=== PATIENT | male | born 1965 | race Caucasian/White ===

== ENCOUNTER 2017-05-28 13:51 | Emergency (ER) | payer BC, OTHER ==
[~2017-05-28] VITALS: Ht 175.3 cm; Wt 89.5 kg
[2017-05-28 13:51] VITALS: TEMP 36.8; O2SAT 96; Ht 175.3 cm; Wt 89.5 kg
[~2017-05-28 13:51] MED LIST: ASPEC81 PO; PLV75 PO; SODIUM CHLORIDE 0.9% 1000ML 1,000 ML IV SCH; THYR15TA PO; VARE1PAK15 PO
--- NOTE | 2017-05-28 14:02 | DIAGNOSTIC IMAGING REPORT ---
HEAD WITHOUT CONTRAST (CT) CLINICAL HISTORY: 51 years-old Male presenting with Stroke. TECHNIQUE: Multidetector CT imaging of the head was performed without the use of intravenous contrast. IV contrast: None. A dose lowering technique was used consistent with the principles of ALARA (as low as reasonably achievable). COMPARISON: 07/29/2015. CT DOSE (mGy.cm): The estimated cumulative dose is 537.48 mGy.cm. FINDINGS: Shop Helper topogram: Unremarkable. Ventricles and sulci normal in size. Incidental note made of a simon cisterna magna. Brain parenchyma normal in appearance with preserved alba-white differentiation. No mass effect or midline shift. No hemorrhage or acute territorial infarct. No extra-axial fluid collection. Paranasal sinuses and mastoid air cells clear. Calvarium intact. IMPRESSION: 1. No acute intracranial abnormality. Electronically signed by: Jac Bearden M.D. 05/28/2017 2:01 PM Dictated Date/Time: 05/28/2017 1:58 PM
--- NOTE | 2017-05-28 14:12 | EMERGENCY ROOM VISIT NOTE ---
History Report prepared by Funmi: Octavio Arias Under the Supervision of: Dr. Car Valdivia D.O. First contact with patient: 13:44 Chief Complaint: STROKE SYMPTOMS Stated Complaint: STROKE SX History of Present Illness The patient is a 51 year old male who presents to the Emergency Room for stoke- like symptoms that the patient estimates began at 1200 when he was getting ready for lunch. The first symptoms he noticed was getting lightheaded, which was then followed by facial numbness, with left arm numbness. EMS state that they were initially called for chest pain and shortness of breath. The patient confirms he was experiencing these symptoms earlier, but is not now. 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 The patient's last time known well was 1200 today, two hours ago. He does have a history of a stroke which he was told was secondary to poor thyroid function. This episode occurred in July 302015 and he notes he was given TPA. The patient has also been told that he may have [place] Palsy. Upon arrival he subjectively feels like his left arm is improved. 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 ) Review of Systems See HPI for pertinent positives & negatives. A total of 10 systems reviewed and were otherwise negative. Past Medical & Surgical Medical Problems: (1) Asthma (2) CVA (cerebral vascular accident) (3) Dyslipidemia (4) H/O pilonidal cyst (5) Vertigo Surgical Problems: (1) H/O cystoscopy (2) H/O lithotripsy Social History Problems: (1) No pertinent past medical history Family History Hypertension FATHER MOTHER SISTER Stroke GRANDFATHER (age 68) Social History Smoking Status: Current Some Day Smoker Alcohol Use: none Drug Use: none Marital Status: Housing Status: lives with family Occupation Status: employed Current/Historical Medications Scheduled Aspirin (Aspirin EC Low Dose), 81 MG PO QAM Propranolol La (Inderal La), 60 MG PO DAILY Thyroid ([place] Thyroid), 3 TAB PO DAILY Allergies Coded Allergies: Levothyroxine (Verified Adverse Reaction, Severe, AGITATION, 05/28/17) Physical Exam Vital Signs Date Time Temp Pulse Resp B/P (MAP) Pulse Ox O2 Delivery O2 Flow Rate FiO2 05/28/17 17:14 63 18 118/64 95 Room Air 05/28/17 15:56 67 20 130/67 98 Room Air 05/28/17 14:55 73 16 136/90 94 Nasal Cannula 05/28/17 14:36 76 21 95 Room Air 05/28/17 14:31 113/75 05/28/17 14:21 79 20 94 Room Air 05/28/17 14:16 119/76 05/28/17 14:06 81 19 97 Room Air 05/28/17 14:04 81 05/28/17 14:01 137/81 05/28/17 13:51 96 Room Air 05/28/17 13:51 36.8 81 19 137/81 97 Room Air Physical Exam GENERAL: Patient is awake, alert, and in no acute distress. Patient is resting comfortably and showing no signs of anxiety EYES: The conjunctivae are clear. The pupils are round and reactive. EARS, NOSE, MOUTH AND THROAT: The nose is without any evidence of any deformity. Mucous membranes are moist tongue is midline NECK: The neck is nontender and supple. RESPIRATORY: Normal respiratory effort is noted there is no evidence of wheezing rhonchi or rales CARDIOVASCULAR: Regular rate and rhythm noted there no murmurs rubs or gallops normal S1 normal S2 GASTROINTESTINAL: The abdomen is soft. Bowel sounds are present in all quadrants. Abdomen is nontender MUSCULOSKELETAL/EXTREMITIES: There is no evidence of gross deformity full range of motion is noted in the hips and shoulders SKIN: There is no obvious evidence of any rash. There are no petechiae, pallor or cyanosis noted. NEUROLOGIC: Patient is awake alert and oriented x3. Left facial droop involving left forehead, minimal involvement of left eye. 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 No drift in the LUE. Strength is symmetric in both lower extremities. Medical Decision & Procedures ER Provider Diagnostic Interpretation: Radiology results as stated below per my review and radiologist interpretation: CHEST ONE VIEW PORTABLE CLINICAL HISTORY: Stroke COMPARISON STUDY: No previous studies for comparison. FINDINGS: Lung volumes are normal. There is no pneumothorax or pleural effusion. There is no consolidation. Cardiac size is normal. Mediastinal contours are normal. There is pulmonary vascular congestion without overt pulmonary edema. A subtle 3 cm density projecting over the right mid-upper lung is likely artifactual. IMPRESSION: 1. Pulmonary vascular congestion without overt pulmonary edema. 2. Apparent 3 cm subtle density projecting over the right mid upper lung which likely reflects overlying soft tissue artifact. Follow-up nonemergent PA and lateral chest radiographs are recommended. Electronically signed by: Jem Wilkins M.D. 05/28/2017 2:17 PM Dictated Date/Time: 05/28/2017 2:14 PM HEAD WITHOUT CONTRAST (CT) CLINICAL HISTORY: 51 years-old Male presenting with Stroke. TECHNIQUE: Multidetector CT imaging of the head was performed without the use of intravenous contrast. IV contrast: None. A dose lowering technique was used consistent with the principles of ALARA (as low as reasonably achievable). COMPARISON: 07/29/2015. CT DOSE (mGy.cm): The estimated cumulative dose is 537.48 mGy.cm. 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 Ventricles and sulci normal in size. Incidental note made of a simon cisterna magna. Brain parenchyma normal in appearance with preserved alba-white differentiation. No mass effect or midline shift. No hemorrhage or acute territorial infarct. No extra-axial fluid collection. Paranasal sinuses and mastoid air cells clear. Calvarium intact. IMPRESSION: 1. No acute intracranial abnormality. Electronically signed by: Jac Bearden M.D. 05/28/2017 2:01 PM Dictated Date/Time: 05/28/2017 1:58 PM CAROTID DOPPLER NECK ART CLINICAL HISTORY: 51 years-old Male with left facial weakness. Acute left-sided facial weakness COMPARISON: Brain MRI 2017 TECHNIQUE: Multiple real time sonographic images of the carotid bifurcations were obtained assessing alba scale, color Doppler and spectral wave form appearance FINDINGS: RIGHT INTERNAL CAROTID: The peak systolic velocity measured 56 cm/sec. The end diastolic velocity measured 18 cm/sec. The ICA to CCA ratio measured 1.0 which correlates with a stenosis of 0-50%. LEFT INTERNAL CAROTID: The peak systolic velocity measured 64 cm/sec. The end diastolic velocity measured 24 cm/sec. The ICA to CCA ratio measured 1.1 which correlates with a stenosis of 0-50%. Minimal atherosclerotic plaquing of the left carotid bulb. There is normal antegrade vertebral flow bilaterally. IMPRESSION: 1. No hemodynamically significant stenosis or significant atherosclerotic plaquing. 2. Normal antegrade vertebral flow bilaterally. The above report was generated using voice recognition software. It may contain grammatical, syntax or spelling errors. Electronically signed by: Dimitri Hamm M.D. 05/28/2017 5:17 PM Dictated Date/Time: 05/28/2017 5:15 PM Laboratory Results 05/28/17 14:07 Red Blood Count 5.33, Mean Corpuscular Volume 89.5, Mean Corpuscular Hemoglobin 31.1, Mean Corpuscular Hemoglobin Concent 34.8, Mean Platelet Volume 10.7, Neutrophils (%) (Auto) 47.2, Lymphocytes (%) (Auto) 41.3, Monocytes (%) (Auto) 7.3, Eosinophils (%) (Auto) 3.4, Basophils (%) (Auto) 0.7, Neutrophils # (Auto) 3.94, Lymphocytes # (Auto) 3.45, Monocytes # (Auto) 0.61, Eosinophils # (Auto) 0.28, Basophils # (Auto) 0.06 05/28/17 14:07 Test 05/28/17 13:44 05/28/17 14:01 05/28/17 14:07 Bedside Prothrombin Time INR 1.1 (0.9-1.1) White Blood Count 8.35 K/uL (4.8-10.8) Red Blood Count 5.33 M/uL (4.7-6.1) Hemoglobin 16.6 g/dL (14.0-18.0) Hematocrit 47.7 % (42-52) Mean Corpuscular Volume 89.5 fL (80-100) Mean Corpuscular Hemoglobin 31.1 pg (25-34) Mean Corpuscular Hemoglobin Concent 34.8 g/dl (32-36) Platelet Count 236 K/uL (130-400) Mean Platelet Volume 10.7 fL (7.4-10.4) Neutrophils (%) (Auto) 47.2 % Lymphocytes (%) (Auto) 41.3 % Monocytes (%) (Auto) 7.3 % Eosinophils (%) (Auto) 3.4 % Basophils (%) (Auto) 0.7 % Neutrophils # (Auto) 3.94 K/uL (1.4-6.5) Lymphocytes # (Auto) 3.45 K/uL (1.2-3.4) Monocytes # (Auto) 0.61 K/uL (0.11-0.59) Eosinophils # (Auto) 0.28 K/uL (0-0.5) Basophils # (Auto) 0.06 K/uL (0-0.2) RDW Standard Deviation 46.1 fL (36.4-46.3) RDW Coefficient of Variation 14.1 % (11.5-14.5) Immature Granulocyte % (Auto) 0.1 % Immature Granulocyte # (Auto) 0.01 K/uL (0.00-0.02) Erythrocyte Sedimentation Rate 22 mm/hr (0-14) Prothrombin Time 10.1 SECONDS (9.0-12.0) Prothromb Time International Ratio 1.0 (0.9-1.1) Activated Partial Thromboplast Time 27.6 SECONDS (21.0-31.0) Partial Thromboplastin Ratio 1.1 Anion Gap 4.0 mmol/L (3-11) Est Creatinine Clear Calc Drug Dose 106.3 ml/min Estimated GFR () 112.7 Estimated GFR (Non- 97.2 BUN/Creatinine Ratio 14.9 (10-20) Calcium Level 8.9 mg/dl (8.5-10.1) Magnesium Level 2.2 mg/dl (1.8-2.4) Total Bilirubin 0.4 mg/dl (0.2-1) Direct Bilirubin 0.1 mg/dl (0-0.2) Aspartate Amino Transf (AST/SGOT) 13 U/L (15-37) Alanine Aminotransferase (ALT/SGPT) 23 U/L (12-78) Alkaline Phosphatase 60 U/L (45-117) Total Creatine Kinase 98 U/L (39-308) Creatine Kinase MB 0.8 ng/ml (0.5-3.6) Creatine Kinase MB Ratio 0.8 (0-3.0) Troponin I < 0.015 ng/ml (0-0.045) C-Reactive Protein 0.59 mg/dl (0-0.29) Total Protein 7.7 gm/dl (6.4-8.2) Albumin 3.5 gm/dl (3.4-5.0) Lyme Disease IgG Antibody NEG (NEG) Lyme Disease IgM Antibody NEG (NEG) Laboratory results per my review. Medications Administered Medications (Trade) Dose Ordered Sig/Gallo Route Start Time Stop Time Status Last Admin Dose Admin Sodium Chloride 1,000 ml @ 50 mls/hr Q20H IV 05/28/17 13:44 06/27/17 13:43 05/28/17 14:26 50 MLS/HR ECG Per My Interpretation Indication: weakness, other (Stroke Sx) Rate (beats per minute): 76 Rhythm: normal sinus Findings: other (No PVCs, NO ST elevation/depression) ED Course 1344: Ordered Sodium Chloride 1000 mL @ 50 mL/hr IV. 1355: The patient was evaluated in room B1. A complete history and physical examination were performed. 1405: I discussed the case with Dr. Aevlino Blakely Neurology. He will evaluate the patient as a stroke alert. 1611: I discussed the case with Dr. April Blakely Neurology. She suggests placing the patient back on Plavix and adding Aspirin. She would also suggest Carotid Doppler Studies while he is here. She will follow up with him next week. 1800: Upon reevaluation, the patient is resting comfortably and feeling to baseline. I discussed the results and treatment plan with him. He verbalized agreement of the treatment plan. The patient was discharged home. Medical Decision Differential diagnosis: Etiologies such as metabolic, infection, hypo/hyperglycemia, electrolyte abnormalities, cardiac sources, intracerebral event, toxicologic, neurologic, as well as others were entertained. Nursing notes reviewed. Additional history is obtained from the prehospital personnel. The patient is a 51-year-old male who presented to the emergency department for a strokelike syndrome. The patient initially had left upper extremity discomfort and this was toned out as a chest pain however the patient does not have any chest pain instead he had left upper extremity weakness and left facial droop. The patient had a previous episode similar to this in the past and he was seen in our facility. At that time he did receive TPA because of his symptoms. The patient had a normal workup at that time including a negative MRI as well as an negative MRA of the brain and neck. I discussed the patient's laboratory and radiographic studies with him. He was made a stroke alert upon arrival and his condition was discussed with the [facility] stroke neurologist. At this time the patient's symptoms have rapidly improved and are essentially resolved. He feels back to his baseline. The stroke neurologist recommended an MRI of the brain which did not show any acute disease. At this time I do not feel this represents a true stroke. I discussed his case with his primary neurologic group at our facility. They recommended an ultrasound of the carotids. The also asked me to start the patient on Plavix which he has been taking in the past but the patient refuses to take Plavix at this time. He was encouraged to continue all medications as prescribed and rest. I also encouraged him to follow-up with the neurology group next week but return to the emergency department immediately if symptoms change worsen or the need arises. Consults Time Called: 1402 Consulting Physician: Dr. Avelino Rahman Returned Call: 1405 I discussed the case with Dr. Avelino Rahman. He will evaluate the patient as a stroke alert. Additional Consults: Time Called: 1606 Consulted Physician: Dr. April Blakely Neurology Returned Call: [phone] Additional Comments: I discussed the case with Dr. April Rahman. She suggests placing the patient back on Plavix and adding Aspirin. She would also suggest Carotid Doppler Studies while he is here. She will follow up with him next week. Impression Primary Impression: TIA (transient ischemic attack) Additional Impression: Atypical migraine Scribe Attestation The scribe's documentation has been prepared under my direction and personally reviewed by me in its entirety. I confirm that the note above accurately reflects all work, treatment, procedures, and medical decision making performed by me. Departure Information Dispostion Home / Self-Care Referrals Phoenix Mchugh M.D. (PCP) Forms HOME CARE DOCUMENTATION FORM, IMPORTANT VISIT INFORMATION Patient Instructions My [facility] Stroke History Time Last Known Well 1200 pm Stroke t-PA Criteria Reviewed Does NOT meet criteria for t-PA Reason t-PA Not Given Treatment not indicated, Refusal of tx by patient Strict Exclusion Criteria Complete resolution of symptoms (NI Problem Qualifiers Primary Impression: TIA (transient ischemic attack) Transient cerebral ischemia type: unspecified Qualified Codes: G45.9 - Transient cerebral ischemic attack, unspecified
[2017-05-28 14:15] LABS: BASO % 0.7 %; BASO ABS # 0.06 K/uL (0-0.2); EOS % 3.4 %; EOS ABS # 0.28 K/uL (0-0.5); HEMATOCRIT 47.7 % (42-52); HEMOGLOBIN 16.6 g/dL (14.0-18.0); IG# 0.01 K/uL (0.00-0.02); LYMPH % 41.3 %; LYMPH ABS # 3.45 K/uL (1.2-3.4); MEAN CELL VOLUME 89.5 fL (80-100); MEAN CORPUSCULAR HEMOGLOBIN 31.1 pg (25-34); MEAN CORPUSCULAR HGB CONC 34.8 g/dl (32-36); MEAN PLATELET VOLUME 10.7 fL (7.4-10.4); MONO % 7.3 %; MONO ABS # 0.61 K/uL (0.11-0.59); NEUT % 47.2 %; NEUT ABS # 3.94 K/uL (1.4-6.5); PLATELET COUNT 236 K/uL (130-400); RED CELL DISTRIBUTION WIDTH CV 14.1 % (11.5-14.5); RED CELL DISTRIBUTION WIDTH SD 46.1 fL (36.4-46.3); WHITE BLOOD COUNT 8.35 K/uL (4.8-10.8)
[2017-05-28] MEDS ORDERED: THY/30 PO (14:19)
[2017-05-28] MEDS ORDERED: PROP60CA5 PO (14:19)
--- NOTE | 2017-05-28 14:19 | DIAGNOSTIC IMAGING REPORT ---
CHEST ONE VIEW PORTABLE CLINICAL HISTORY: Stroke COMPARISON STUDY: No previous studies for comparison. FINDINGS: Lung volumes are normal. There is no pneumothorax or pleural effusion. There is no consolidation. Cardiac size is normal. Mediastinal contours are normal. There is pulmonary vascular congestion without overt pulmonary edema. A subtle 3 cm density projecting over the right mid-upper lung is likely artifactual. IMPRESSION: 1. Pulmonary vascular congestion without overt pulmonary edema. 2. Apparent 3 cm subtle density projecting over the right mid upper lung which likely reflects overlying soft tissue artifact. Follow-up nonemergent PA and lateral chest radiographs are recommended. Electronically signed by: Jem Wilkins M.D. 05/28/2017 2:17 PM Dictated Date/Time: 05/28/2017 2:14 PM
[2017-05-28 14:23] LABS: PTT PATIENT 27.6 SECONDS (21.0-31.0)
[2017-05-28 14:34] LABS: ALBUMIN 3.5 gm/dl (3.4-5.0); ALT/SGPT 23 U/L (12-78); AST/SGOT 13 U/L (15-37); BLOOD UREA NITROGEN 14 mg/dl (7-18); CALCIUM 8.9 mg/dl (8.5-10.1); CARBON DIOXIDE 29 mmol/L (21-32); CREATININE 0.91 mg/dl (0.60-1.40); GLUCOSE 79 mg/dl (70-99); POTASSIUM 3.8 mmol/L (3.5-5.1); SODIUM 139 mmol/L (136-145)
[2017-05-28 14:42] LABS: ALKALINE PHOSPHATASE 60 U/L (45-117); CKMB 0.8 ng/ml (0.5-3.6); TOTAL PROTEIN 7.7 gm/dl (6.4-8.2)
--- NOTE | 2017-05-28 15:28 | DIAGNOSTIC IMAGING REPORT ---
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 TECHNIQUE: 3 views of the orbits were obtained. COMPARISON: 07/31/2015. FINDINGS: No radiopaque intraorbital foreign body. Bony orbits grossly intact. Paranasal sinuses grossly clear. Visualized portion of the calvarium intact. IMPRESSION: No intraorbital metallic foreign body to preclude MRI exam. Electronically signed by: Jac Bearden M.D. 05/28/2017 3:26 PM Dictated Date/Time: 05/28/2017 3:26 PM
--- NOTE | 2017-05-28 15:53 | DIAGNOSTIC IMAGING REPORT ---
BRAIN WITHOUT CONTRAST HISTORY: Mental status change left weakness TECHNIQUE: Multiplanar multisequence MRI of the brain was performed without the use of contrast. COMPARISON STUDY: 07/31/2015 FINDINGS: There are no areas of restricted diffusion to suggest acute infarction. The midline structures are intact. The paranasal sinuses are clear. The mastoid air cells are clear. The ventricles and sulci are within normal limits for age. There is no mass, hematoma, midline shift. The major vascular flow-voids at the skull base are well maintained. IMPRESSION: No acute intracranial abnormality. The above report was generated using voice recognition software. It may contain grammatical, syntax or spelling errors. Electronically signed by: Bin Munguia M.D. 05/28/2017 3:51 PM Dictated Date/Time: 05/28/2017 3:50 PM
--- NOTE | 2017-05-28 17:18 | DIAGNOSTIC IMAGING REPORT ---
CAROTID DOPPLER NECK ART CLINICAL HISTORY: 51 years-old Male with left facial weakness. Acute left-sided facial weakness COMPARISON: Brain MRI 2017 TECHNIQUE: Multiple real time sonographic images of the carotid bifurcations were obtained assessing alba scale, color Doppler and spectral wave form appearance FINDINGS: RIGHT INTERNAL CAROTID: The peak systolic velocity measured 56 cm/sec. The end diastolic velocity measured 18 cm/sec. The ICA to CCA ratio measured 1.0 which correlates with a stenosis of 0-50%. LEFT INTERNAL CAROTID: The peak systolic velocity measured 64 cm/sec. The end diastolic velocity measured 24 cm/sec. The ICA to CCA ratio measured 1.1 which correlates with a stenosis of 0-50%. Minimal atherosclerotic plaquing of the left carotid bulb. There is normal antegrade vertebral flow bilaterally. IMPRESSION: 1. No hemodynamically significant stenosis or significant atherosclerotic plaquing. 2. Normal antegrade vertebral flow bilaterally. The above report was generated using voice recognition software. It may contain grammatical, syntax or spelling errors. Electronically signed by: Dimitri Hamm M.D. 05/28/2017 5:17 PM Dictated Date/Time: 05/28/2017 5:15 PM
[2017-05-28 17:27] VITALS: BP 119/77; PULSE 68; O2SAT 95
== END 2017-05-28 17:25 | disposition home or self-care (01) ==
LOC: C.EDB 13:51
DX: G45.9 Transient cerebral ischemic attack, unspecified (principal); G43.809 Other migraine, not intractable, without status migrainosus; E78.5 Hyperlipidemia, unspecified; J45.909 Unspecified asthma, uncomplicated; Z79.82 Long term (current) use of aspirin; Z79.899 Other long term (current) drug therapy; Z82.49 Family history of ischemic heart disease and other diseases of the circulatory system; Z82.3 Family history of stroke; F17.200 Nicotine dependence, unspecified, uncomplicated

== ENCOUNTER 2017-06-27 10:38 | Emergency (ER) | payer BC ==
[~2017-06-27] VITALS: Ht 172.7 cm; Wt 90.0 kg
[2017-06-27 10:38] VITALS: TEMP 36.8; O2SAT 96; Ht 172.7 cm; Wt 90.0 kg
[~2017-06-27 10:38] MED LIST changes: -PLV75 PO; +PROP60CA5 PO; -SODIUM CHLORIDE 0.9% 1000ML 1,000 ML IV SCH; +THY/30 PO; -THYR15TA PO; -VARE1PAK15 PO
[2017-06-27] MEDS ORDERED: SODIUM CHLORIDE 0.9% 1000ML 1,000 ML IV SCH (10:43)
--- NOTE | 2017-06-27 10:55 | EMERGENCY ROOM VISIT NOTE ---
History Report prepared by Funmi: Seferino Mancuso Under the Supervision of: Dr. Andrzej Bueno M.D. First contact with patient: 10:34 Stated Complaint: STROKE SYMPTOMS History of Present Illness The patient is a 51 year old male who presents to the Emergency Room with complaints of multiple intermittent episodes of left-sided facial cramping and numbness beginning a few weeks ago. The patient states that his symptoms have been occurring for a few weeks, but have recently become more frequent and more severe. He notes that between the episodes, his facial cramping and numbness goes away. He reports that his symptoms begin with facial twitching and then proceed to left-sided facial cramping. The patient states that his symptoms go down to his left shoulder and feel like "someone is ripping his arm off." He notes that his symptoms have been daily for the last week and last anywhere from 10 minutes to an hour. He reports that he had a CT done three weeks ago for similar symptoms. The patient states that his PCP thinks that he may have dean's palsy. He notes that the right side of his face feels as though "someone slapped it." He reports that he currently has a "splitting headache" which is different than his usual symptoms. He denies any fever, CP, and SOB. The patient states that he has no history of diabetes. He notes that he is on medication for his thyroid and for his blood pressure, as well as an aspirin. The patient had a carotid US done a month ago which showed no significant obstruction. An MRI of his brain was negative and he tested negative for lyme disease. Source of History: patient Onset: a few weeks ago Position: head (left-sided face) Quality: numbness, other (cramping) Timing: intermittent, other (multiple episodes) Associated Symptoms: + headache, No fevers, No chest pain, No SOB Note: The patient also complains of left-sided shoulder pain that feels as though "someone is ripping his arm off." He also complains of right-sided facial numbness. Review of Systems See HPI for pertinent positives & negatives. A total of 10 systems reviewed and were otherwise negative. Past Medical & Surgical Medical Problems: (1) Asthma (2) CVA (cerebral vascular accident) (3) Dyslipidemia (4) H/O pilonidal cyst (5) Vertigo Surgical Problems: (1) H/O cystoscopy (2) H/O lithotripsy Social History Problems: (1) No pertinent past medical history Old medical records were reviewed. Nurse's notes were reviewed and I agree with. Family History Hypertension FATHER MOTHER SISTER Stroke GRANDFATHER (age 68) Social History Smoking Status: Current Every Day Smoker Alcohol Use: none Drug Use: none Marital Status: Housing Status: lives with family Occupation Status: employed Current/Historical Medications Scheduled Aspirin (Aspirin Ec), 81 MG PO QAM Propranolol Hcl (Propranolol ER), 60 MG PO QPM Thyroid ([place] Thyroid), 90 MG PO QAM Allergies Coded Allergies: Levothyroxine (Verified Adverse Reaction, Severe, AGITATION, 06/27/17) Physical Exam Vital Signs Date Time Temp Pulse Resp B/P (MAP) Pulse Ox O2 Delivery O2 Flow Rate FiO2 06/27/17 13:19 70 128/62 96 Room Air 06/27/17 12:14 60 121/65 96 Room Air 06/27/17 11:45 122/85 06/27/17 11:43 63 19 96 06/27/17 11:30 112/76 06/27/17 11:28 62 16 95 06/27/17 11:15 124/78 06/27/17 11:13 59 21 95 06/27/17 11:08 59 20 95 06/27/17 11:04 65 06/27/17 11:02 120/71 06/27/17 10:53 61 20 06/27/17 10:39 141/91 06/27/17 10:38 36.8 68 18 141/91 96 Room Air 06/27/17 10:38 96 Room Air Physical Exam General: Non-ill appearing middle age male in no acute distress, appears mildly uncomfortable, complains of left facial pain and numbness, difficulty opening eye, positive facial weakness with smiling on left. HEENT: Normal cephalic atraumatic. Pupils are equal round and reactive to light. Extraocular movements are intact. Oropharynx is pink with moist mucous membranes. No swelling of the mouth lips or tongue. Neck: Supple with a midline trachea. No meningeal signs or stiffness, no JVD or bruits. No Stridor. Chest: Clear to auscultation bilaterally. No wheezes or rhonchi. No increased work of breathing. Heart: regular rate and rhythm. Abdomen: Soft nontender, nondistended without rebound guarding or rigidity. Extremities: No cyanosis clubbing or edema. No calf tenderness or assymetry Spine/Back. Non tender to palpation. No CVA tenderness Skin: Good turgor without rashes. Neurologic exam: Cranial nerves two through 12 are intact. Motor and sensation are intact and symmetrical throughout. Medical Decision & Procedures ER Provider Diagnostic Interpretation: Radiology results as stated below per my review and radiologist interpretation: CT SCAN OF THE BRAIN WITHOUT IV CONTRAST FINDINGS: Brain parenchyma: The brain parenchyma is normal in appearance. There is no hemorrhage, mass effect, or evidence of acute territorial ischemia by CT criteria. Ramon-white matter is preserved. No extra-axial fluid collection is seen. Ventricles, sulci, cisterns: Normal in configuration. Intracranial vasculature: There is minimal atherosclerotic calcification of the cavernous carotid arteries. Calvarium: Unremarkable. Sinuses and mastoids: The visualized paranasal sinuses are clear. The mastoid air cells are well pneumatized. Orbits: The bony orbits are grossly intact. IMPRESSION: There is no hemorrhage, mass effect, or evidence of acute territorial ischemia by CT criteria. Electronically signed by: Manny Buck M.D. 06/27/2017 10:53 AM Laboratory Results 06/27/17 10:15 Red Blood Count 5.38, Mean Corpuscular Volume 90.3, Mean Corpuscular Hemoglobin 30.5, Mean Corpuscular Hemoglobin Concent 33.7, Mean Platelet Volume 11.0, Neutrophils (%) (Auto) 44.6, Lymphocytes (%) (Auto) 41.5, Monocytes (%) (Auto) 9.5, Eosinophils (%) (Auto) 3.4, Basophils (%) (Auto) 0.6, Neutrophils # (Auto) 5.53, Lymphocytes # (Auto) 5.14, Monocytes # (Auto) 1.18, Eosinophils # (Auto) 0.42, Basophils # (Auto) 0.07 06/27/17 10:15 Test 06/27/17 10:15 White Blood Count 12.39 K/uL (4.8-10.8) Red Blood Count 5.38 M/uL (4.7-6.1) Hemoglobin 16.4 g/dL (14.0-18.0) Hematocrit 48.6 % (42-52) Mean Corpuscular Volume 90.3 fL (80-100) Mean Corpuscular Hemoglobin 30.5 pg (25-34) Mean Corpuscular Hemoglobin Concent 33.7 g/dl (32-36) Platelet Count 259 K/uL (130-400) Mean Platelet Volume 11.0 fL (7.4-10.4) Neutrophils (%) (Auto) 44.6 % Lymphocytes (%) (Auto) 41.5 % Monocytes (%) (Auto) 9.5 % Eosinophils (%) (Auto) 3.4 % Basophils (%) (Auto) 0.6 % Neutrophils # (Auto) 5.53 K/uL (1.4-6.5) Lymphocytes # (Auto) 5.14 K/uL (1.2-3.4) Monocytes # (Auto) 1.18 K/uL (0.11-0.59) Eosinophils # (Auto) 0.42 K/uL (0-0.5) Basophils # (Auto) 0.07 K/uL (0-0.2) RDW Standard Deviation 47.2 fL (36.4-46.3) RDW Coefficient of Variation 14.3 % (11.5-14.5) Immature Granulocyte % (Auto) 0.4 % Immature Granulocyte # (Auto) 0.05 K/uL (0.00-0.02) Prothrombin Time 9.4 SECONDS (9.0-12.0) Prothromb Time International Ratio 0.9 (0.9-1.1) Activated Partial Thromboplast Time 24.4 SECONDS (21.0-31.0) Partial Thromboplastin Ratio 0.9 Anion Gap 5.0 mmol/L (3-11) Est Creatinine Clear Calc Drug Dose 130.4 ml/min Estimated GFR () 124.5 Estimated GFR (Non- 107.4 BUN/Creatinine Ratio 26.2 (10-20) Calcium Level 8.7 mg/dl (8.5-10.1) Magnesium Level 2.1 mg/dl (1.8-2.4) Total Creatine Kinase 132 U/L (39-308) Creatine Kinase MB 1.3 ng/ml (0.5-3.6) Creatine Kinase MB Ratio 1.0 (0-3.0) Troponin I < 0.015 ng/ml (0-0.045) Lyme Disease IgG Antibody NEG (NEG) Lyme Disease IgM Antibody NEG (NEG) Laboratory studies as stated above per my review. Medications Administered Medications (Trade) Dose Ordered Sig/Gallo Route Start Time Stop Time Status Last Admin Dose Admin Lorazepam (Ativan Tab) 0.5 mg NOW STAT SL 06/27/17 10:58 06/27/17 10:59 DC 06/27/17 11:17 0.5 MG Ketorolac Tromethamine (Toradol Inj) 30 mg NOW STAT IV 06/27/17 12:39 06/27/17 12:40 DC 06/27/17 12:51 30 MG Aspirin (Aspirin Chew) 324 mg NOW STAT PO 06/27/17 12:51 06/27/17 12:53 DC 06/27/17 13:13 324 MG ECG Per My Interpretation Indication: weakness Rate (beats per minute): 55 Rhythm: sinus bradycardia Findings: no acute ischemic change, no ectopy Comparison ECG Date: 05/28/2017 Change: no significant change ED Course 1037: Past medical records reviewed. The patient was evaluated in room A1, and a complete history and physical examination were performed. 1047: The patient was sent to CT. 1049: I spoke to the patient's girlfriend. She states that it occurs daily and that he feels better when he eats or takes a nap.She notes that the last time the patient was in the emergency department, his symptoms were thought to be a migraine. 1055: I reevaluated and updated the patient. He states that he has been very stressed lately. His facial cramping seems more like a spasm. I ordered Ativan. 1058: Ativan Tab 0.5mg SL 1137: I rechecked the patient. He is feeling better and describing his symptoms as a pain. 1206: Upon reevaluation, the patient is doing better. He was moved to room A4. 1228: I rechecked the patient. He is doing better but is now complaining of facial pain. I ordered him Toradol and called out for Jhon Soto. 1239: Toradol Inj 30mg IV 1241: I discussed the patients case with Jhon Soto. He recommends that the patient should keep his appointment with a neurologist tomorrow. He agrees that the patient can be discharged and recommends increasing his aspirin. The patient agrees that he does not need to be admitted. 1251: Aspirin 324mg PO 1300: Lorazepam 1 homepack PO 1310: Upon reevaluation, the patient is stable. I discussed the results and treatment plan with him. He verbalized agreement of the treatment plan. The patient was discharged home. Medical Decision Differential diagnoses include: CVA, TIA, dean's palsy, migraine, muscle spasm, anxiety, and electrolyte/metabolic abnormalities. This patient comes in as described above. I talked to the paramedics prior to arrival. He has been having left facial numbness/pain/muscle spasm. They are concerned he could be having a stroke. I put him in room A1 and saw him immediately. He has no other symptoms he has no numbness or weakness of his arms or legs. Initially had some issues with the left side of his face with possible some weakness but seem to be more pain than anything. He was sent emergently to CAT scan and it was unremarkable when he came back he actually seemed to have more spasm in the face and I could see the twitching under his eye. He was given Ativan 0.5 mg sublingual and this seemed to do much better after this. I talked to his girlfriend at length and he said this has been occurring daily for the last 2 or 3 weeks and when he eats and goes to sleep it gets better. I do not think is likely an acute stroke. I reviewed his old records and he was here for similar complaint about a month ago and had a negative MRI of his head as well as imaging of his neck is also MRAs. His blood work has been unremarkable is unremarkable today's note that she has cardiac event. He does have an appointment to see a neurologist in [place] tomorrow which I encouraged him to keep. He seems to be doing much better. he is on aspirin a day. I did discuss case with Dr. Leroy who agrees and does not feel he needs to be admitted at this point I agree and the patient does not wish to stay either. I have reviewed his chart further and he was admitted and had TPA treatment for left-sided symptoms about a year or so ago and his workup then was also negative. His symptoms will be very atypical for CVA or vascular process. It may be more muscle spasm. He has no electrolyte or metabolic abnormalities. He will increase his aspirin to 325 mg and was given 325 mg p.o. here. he was also given a home pack of Ativan that he is 0.5 mg every 8 hours if needed for recurrence of symptoms or new symptoms and was encouraged to return if: numbness or weakness, worsening of symptoms, increasing pain, fever or chills, any new problems or concerns. He should follow-up with his neurologist tomorrow. He was happy with the plan and discharged to home. Medication Reconcilliation Current Medication List: was personally reviewed by me Blood Pressure Screening Patient's blood pressure: Normal blood pressure Blood pressure disposition: Did not require urgent referral Consults Time Called: 1228 Consulting Physician: Dr. Leroy - Neurology [facility] [address] Returned Call: [phone] He recommends that the patient should keep his appointment with a neurologist tomorrow. He agrees that the patient can be discharged and recommends increasing his aspirin. Impression Primary Impression: Left facial pain Additional Impressions: Muscle spasm Left facial numbness Scribe Attestation The scribe's documentation has been prepared under my direction and personally reviewed by me in its entirety. I confirm that the note above accurately reflects all work, treatment, procedures, and medical decision making performed by me. Departure Information Dispostion Home / Self-Care Referrals Phoenix Mchugh M.D. (PCP) Forms HOME CARE DOCUMENTATION FORM, IMPORTANT VISIT INFORMATION, WORK / SCHOOL INSTRUCTIONS Patient Instructions My [facility] Additional Instructions Rest Drink plenty of fluids Increase your Aspirin to 325 mg twice a day For spasm , may use Ativan 0.5 mg every 8 hours as needed Keep your appointment with your neuologist tommorrow Problem Qualifiers
--- NOTE | 2017-06-27 10:55 | DIAGNOSTIC IMAGING REPORT ---
CT SCAN OF THE BRAIN WITHOUT IV CONTRAST CLINICAL HISTORY: Strokelike symptoms. COMPARISON STUDY: CT an MRI of the brain dated 05/28/2017. TECHNIQUE: Unenhanced axial CT scan of the brain is performed from the vertex to the skull base. A dose lowering technique was utilized adhering to the principles of ALARA. CT DOSE: 537.48 mGy.cm FINDINGS: Brain parenchyma: The brain parenchyma is normal in appearance. There is no hemorrhage, mass effect, or evidence of acute territorial ischemia by CT criteria. Ramon-white matter is preserved. No extra-axial fluid collection is seen. Ventricles, sulci, cisterns: Normal in configuration. Intracranial vasculature: There is minimal atherosclerotic calcification of the cavernous carotid arteries. Calvarium: Unremarkable. Sinuses and mastoids: The visualized paranasal sinuses are clear. The mastoid air cells are well pneumatized. Orbits: The bony orbits are grossly intact. IMPRESSION: There is no hemorrhage, mass effect, or evidence of acute territorial ischemia by CT criteria. Electronically signed by: Manny Buck M.D. 06/27/2017 10:53 AM Dictated Date/Time: 06/27/2017 10:51 AM
[2017-06-27] MEDS ORDERED: LORAZEPAM 0.5 MG TAB SL STA (10:58)
[2017-06-27 11:06] LABS: HEMATOCRIT 48.6 % (42-52); HEMOGLOBIN 16.4 g/dL (14.0-18.0); MEAN CELL VOLUME 90.3 fL (80-100); MEAN CORPUSCULAR HEMOGLOBIN 30.5 pg (25-34); MEAN CORPUSCULAR HGB CONC 33.7 g/dl (32-36); PLATELET COUNT 259 K/uL (130-400); RED CELL DISTRIBUTION WIDTH CV 14.3 % (11.5-14.5); RED CELL DISTRIBUTION WIDTH SD 47.2 fL (36.4-46.3); WHITE BLOOD COUNT 12.39 K/uL (4.8-10.8)
[2017-06-27 11:13] LABS: INR 0.9 (0.9-1.1); PTT PATIENT 24.4 SECONDS (21.0-31.0)
[2017-06-27 11:22] LABS: BLOOD UREA NITROGEN 19 mg/dl (7-18); CALCIUM 8.7 mg/dl (8.5-10.1); CARBON DIOXIDE 27 mmol/L (21-32); CREATININE 0.73 mg/dl (0.60-1.40); GLUCOSE 84 mg/dl (70-99); POTASSIUM 4.7 mmol/L (3.5-5.1); SODIUM 141 mmol/L (136-145)
[2017-06-27 11:27] LABS: CKMB 1.3 ng/ml (0.5-3.6)
[2017-06-27 11:30] LABS: BASO % 0.6 %; BASO ABS # 0.07 K/uL (0-0.2); EOS % 3.4 %; EOS ABS # 0.42 K/uL (0-0.5); IG# 0.05 K/uL (0.00-0.02); LYMPH % 41.5 %; LYMPH ABS # 5.14 K/uL (1.2-3.4); MONO % 9.5 %; MONO ABS # 1.18 K/uL (0.11-0.59); NEUT % 44.6 %; NEUT ABS # 5.53 K/uL (1.4-6.5)
[2017-06-27] MEDS ORDERED: ASPI81TA28 PO (12:30)
[2017-06-27] MEDS ORDERED: INDSR/60 PO (12:30)
[2017-06-27] MEDS ORDERED: KETOROLAC TROMETHAMINE 30 MG/ML VIAL IV STA (12:39)
[2017-06-27] MEDS ORDERED: ASPIRIN 81 MG CHEW PO STA (12:51)
[2017-06-27] MEDS ORDERED: ATIVAN 1MG HOMEPACK PO ONE (13:00)
[2017-06-27 13:19] VITALS: BP 128/62; PULSE 70; O2SAT 96
== END 2017-06-27 13:20 | disposition home or self-care (01) ==
LOC: EDBD 10:41 → C.EDA 10:43
DX: R51 Headache (principal); M62.838 Other muscle spasm; R20.0 Anesthesia of skin; J45.909 Unspecified asthma, uncomplicated; Z86.73 Personal history of transient ischemic attack (TIA), and cerebral infarction without residual deficits; E78.5 Hyperlipidemia, unspecified; Z82.49 Family history of ischemic heart disease and other diseases of the circulatory system; F17.210 Nicotine dependence, cigarettes, uncomplicated; Z79.82 Long term (current) use of aspirin; Z79.899 Other long term (current) drug therapy; Z88.8 Allergy status to other drugs, medicaments and biological substances

== ENCOUNTER 2020-09-04 10:40 | Observation (INO) ==
[2020-09-04] MEDS ORDERED: NITROGLYCERIN SL 0.4 MG/TAB TAB SL PRN (11:01)
[2020-09-04] MEDS: SODIUM CHLORIDE 0.9% 1000ML 1,000 ML IV SCH ×2 (11:17→20:28)
[2020-09-04 11:32] LABS: Basophils # (auto) 0.07 K/uL (0-0.2); Basophils % (auto) 0.7 %; Eosinophils # (auto) 0.29 K/uL (0-0.5); Eosinophils % (auto) 2.9 %; Hematocrit (blood only) 44.4 % (42-52); Hemoglobin 15.3 g/dL (14.0-18.0); Immature Granulocytes # (auto) 0.02 K/uL (0.00-0.02); Immature Granulocytes % (auto) 0.2 %; Lymphocytes # (auto) 3.83 K/uL (1.2-3.4); Lymphocytes % (auto) 37.8 %; Mean Corpuscular Hemoglobin 31.4 pg (25-34); Mean Corpuscular Hgb Conc 34.5 g/dL (32-36); Mean Corpuscular Volume 91.2 fL (80-100); Mean Platelet Volume 11.2 fL (7.4-10.4); Monocytes # (auto) 0.89 K/uL (0.11-0.59); Monocytes % (auto) 8.8 %; Neutrophils # (auto) 5.03 K/uL (1.4-6.5); Neutrophils % (auto) 49.6 %; Platelet Count 279 K/uL (130-400); RDW Coefficient of Variation 14.3 % (11.5-14.5); RDW Standard Deviation 47.9 fL (36.4-46.3); Red Blood Count 4.87 M/uL (4.7-6.1); White Blood Count 10.13 K/uL (4.8-10.8)
--- NOTE | 2020-09-04 11:34 | XRay Report ---
XR chest 1V portable CLINICAL HISTORY: Chest pain. COMPARISON STUDY: Chest radiograph May 28, 2017. FINDINGS: Lung volumes are normal. There is no pneumothorax or pleural effusion. Left basilar opacity is present. Diffuse interstitial thickening is present. Cardiomediastinal silhouette is stable. IMPRESSION: 1. Left basilar opacity. This may reflect pneumonia. Radiographic follow-up to ensure resolution is r ecommended. 2. Apparent pulmonary vascular congestion, similar to prior exam. ACT 112: Negative or not required by law. Electronically signed by: Jem Wilkins M.D. 09/04/2020 11:33 AM
[2020-09-04 11:50] LABS: BUN Creatinine Ratio 23.8 (10-20); Blood Urea Nitrogen 17 mg/dl (7-18); Calcium 8.9 mg/dl (8.5-10.1); Carbon Dioxide 24 mmol/L (21-32); Chloride 108 mmol/L (98-107); Creatinine Clr Calc Pharmacy 129.6 ml/min; Est GFR (African American) 121.9 ml/min; Est GFR (Non-African American) 105.2 ml/min; Glucose 98 mg/dl (70-99); Lipase 114 U/L (73-393); Magnesium 2.4 mg/dl (1.8-2.4); Sodium 137 mmol/L (136-145)
[2020-09-04 11:55] LABS: Troponin I < 0.015 ng/ml (0-0.045)
[2020-09-04 12:00] LABS: D Dimer 350 ug/L FEU (0-500); Partial Thromboplastin Time 27.1 Seconds (21.0-31.0); Prothrombin Time 9.9 Seconds (9.0-12.0)
[2020-09-04] MEDS ORDERED: DOXYCYCLINE HYCLATE 100 MG CAP PO STA (12:25)
[2020-09-04] MEDS ORDERED: cefTRIAXone SODIUM 1,000 MG/50 ML BAG IV STA (12:25)
--- NOTE | 2020-09-04 14:01 | History & Physical Report ---
Date of Service September 04, 2020 Assessment & Plan (1) Palpitations: Patient with frequent PACs, otherwise has normal sinus rhythm Will place monitored observation Trend troponins Check fasting lipid panel Check 2D echo Give low-dose aspirin Ask cardiology to evaluate further recommendations Defer stress testing for now, will await cardiology evaluation Question of pneumonia on chest x-ray, patient has no other symptoms or lymph findings consistent with this. Was given Rocephin emergency room, will hold off on further dosing for now (2) Hypothyroid: Will decrease levothyroxine to 88 mcg for now, patient can follow-up with his primary care physician after discharge further dose adjustment. History of Present Illness Chief Complaint: Palpitations Primary Care Provider: Tayla Cheryl This is a 54-year-old male with past history of hypothyroidism presents today complaining of palpitation chest pain. Patient is a good historian. Patient tells me that his symptoms started around 6 or 09/01. He noticed episodic palpitations with some tightness in the upper substernal area. There were no radiations. There is no diaphoresis. He did not have any shortness of breath at any point. He attributes this discomfort to a recent increase in his levothyroxine from 88 mcg to 112 mcg, he had started the new dose late last week after picking it up from the pharmacy. He does not know his TSH lab values. At the time of evaluation, the patient appears to be comfortable, his O2 sat is 99% on room air. He describes very minimal chest pressure but otherwise has no symptoms. Of note, patient appears to have normal sinus rhythm on monitor and EKG with frequent PACs. Patient is not aware of any arrhythmias prior to today's visit. Allergies Allergy/AdvReac Type Severity Reaction Status Date / Time levothyroxine AdvReac Severe AGITATION Verified 09/04/20 12:08 Home Medications Medication Instructions Recorded Confirmed Type levothyroxine 112 mcg PO DAILY 09/04/20 09/04/20 History loratadine 10 mg PO DAILY 09/04/20 09/04/20 History Past Med/Surg History Medical History (Updated 09/04/20 @ 13:57 by Gerry Hatch DO) Hypothyroid Social History Smoking Status: Current every day smoker Tobacco Type: Cigarettes Feels Safe at Home: Yes Review of Systems Constitutional: no fever, no chills, no weakness, no weight loss and no weight gain Eyes: as per Subjective / HPI Respiratory: + cough; no chest congestion, no dyspnea and no dyspnea on exertion Cardiovascular: + chest pain, + radiating jaw, neck or arm pain and + palpitations; no dyspnea, no orthopnea, no lightheadedness and no edema Gastrointestinal: no abdominal pain, no nausea, no vomiting, no constipation and no diarrhea/loose stools Musculoskeletal: no back pain, no neck pain, no joint pain, no stiffness and no myalgia Integumentary: no rash Neurologic: no gait abnormality, no unsteadiness, no falls and no generalized weakness Physical Exam Constitutional: cooperative and comfortable; no acute distress Neck: trachea midline, no thyromegaly Respiratory: normal respiratory effort Auscultation: + diminished lung sounds; no crackles, no rales, no rhonchi and no wheezes Cardiovascular: Rate/Rhythm: regular rate and + irregularly irregular Heart Sounds: normal S1 and normal S2; no murmur Vessels: no JVD and no carotid bruit Extremities: no edema Gastrointestinal (Abdomen): Inspection/Auscultation: abdomen normal to inspection Percussion/Palpation: abdomen soft; abdomen nontender, no guarding, abdomen not rigid and no hepatosplenomegaly Skin: no rashes, warm and dry Results & Data Results & Data ([facility]) Vital Signs (Past 12 Hours) Vital Signs Temp Pulse Pulse Resp BP BP Pulse Ox 09/04/20 13:00 71 13 117/79 96 09/04/20 12:20 82 11 L 98 09/04/20 12:10 56 L 16 94 09/04/20 12:01 67 17 96 09/04/20 12:00 61 20 128/83 97 09/04/20 11:50 64 16 97 09/04/20 11:40 69 16 97 09/04/20 11:31 61 19 94 09/04/20 11:30 65 18 127/66 96 09/04/20 11:20 89 20 96 09/04/20 11:10 74 15 95 09/04/20 11:01 84 16 128/77 97 09/04/20 11:00 71 23 95 09/04/20 10:55 95 09/04/20 10:50 81 24 95 09/04/20 10:49 36.8 C 76 22 143/87 H 95 09/04/20 10:44 75 18 143/87 H 94 PG Care Time/CCT Total # of Minutes Spent Total Time Spent with Patient: Total time spent is greater than 50% in coordination of care (as documented) at patient's floor/unit and/or counseling patient: Coding Level of Care Code 31077 Initial Inpt Care Lvl 3 Diagnoses Palpitations R00.2 Hypothyroid E03.9
--- NOTE | 2020-09-04 18:10 | Emergency Department Note ---
History of Present Illness General Chief Complaint: Chest Pain Time Seen by Provider: 09/04/20 10:42 History of Present Illness Provider Complaint: chest pain Onset (ago): day(s) 2 Duration: intermittent Onset: during exertion Pain Location: substernal Pain Radiation: neck Severity: severe Maximum Pain Intensity: 9 Current Pain Intensity: 2 Quality: + heaviness and + other (pressure) Relieved By: + rest Exacerbated By: + exertion Context: no recent illness, no recent surgery, no recent travel, no trauma/injury and no history of DVT/PE Associated symptoms: + dyspnea; no vomiting, no diaphoresis, no syncope, no palpitations, no fever, no cough and no leg swelling Treatments prior to arrival: aspirin 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 Patient currently smokes. Home Medications Medication Instructions Recorded Confirmed Type levothyroxine 112 mcg PO DAILY 09/04/20 09/04/20 History loratadine 10 mg PO DAILY 09/04/20 09/04/20 History Allergies Allergy/AdvReac Type Severity Reaction Status Date / Time levothyroxine AdvReac Severe AGITATION Verified 09/04/20 12:08 Past Med/Surg History Medical History Asthma Dyslipidemia Hypothyroid Surgical History S/P ureteral stent placement Social History Smoking Status: Current every day smoker Tobacco Type: Cigarettes Cigarettes Per Day: 10; Hx Alcohol Use: Yes Hx Substance Use: No Preferred Language: Micronesian Communication Ability: Effective Attorney At Law Required: No Beliefs That Will Affect Care: None Current Living Situation: Significant Other Other Information That Helps Us Care for You: No Feels Safe at Home: Yes Safety Concerns: Feels Safe At This Time Assistive Devices: Glasses Review of Systems A total of 10 systems reviewed and were otherwise negative Physical Exam Vital Signs Vital Signs - 24 hr 09/04/20 10:44 09/04/20 10:49 09/04/20 10:50 Temperature 36.8 C Temperature Source Oral Pulse Rate 75 81 Pulse Rate [Right Finger] 76 Pulse Rate from SpO2 Sensor 70 62 Pulse Rhythm [Right Finger] Regular Pulse Strength [Right Finger] Normal Respiratory Rate 18 22 24 Respiratory Effort / Characteristics Non-Labored Spontaneous Respiratory Depth Normal Respiratory Pattern Regular Blood Pressure 143/87 H Blood Pressure [Left Arm] 143/87 H Blood Pressure Mean 105 Blood Pressure Mean [Left Arm] 105 Blood Pressure Position [Left Arm] Sitting Pulse Oximetry 94 95 95 Oxygen Delivery Method Room Air Sepsis Recent Fever Within 48 Hours Sepsis New/Unexplained Change in Mental Status Sepsis Action Taken by Nursing 09/04/20 10:51 09/04/20 10:55 09/04/20 11:00 Temperature Temperature Source Pulse Rate 71 Pulse Rate [Right Finger] Pulse Rate from SpO2 Sensor 68 Pulse Rhythm [Right Finger] Pulse Strength [Right Finger] Respiratory Rate 23 Respiratory Effort / Characteristics Respiratory Depth Respiratory Pattern Blood Pressure Blood Pressure [Left Arm] Blood Pressure Mean Blood Pressure Mean [Left Arm] Blood Pressure Position [Left Arm] Pulse Oximetry 95 95 Oxygen Delivery Method Room Air Sepsis Recent Fever Within 48 Hours No Sepsis New/Unexplained Change in Mental Status No Sepsis Action Taken by Nursing No Action Required 09/04/20 11:01 09/04/20 11:10 09/04/20 11:20 Temperature Temperature Source Pulse Rate 84 74 89 Pulse Rate [Right Finger] Pulse Rate from SpO2 Sensor 68 67 60 Pulse Rhythm [Right Finger] Pulse Strength [Right Finger] Respiratory Rate 16 15 20 Respiratory Effort / Characteristics Respiratory Depth Respiratory Pattern Blood Pressure 128/77 Blood Pressure [Left Arm] Blood Pressure Mean 94 Blood Pressure Mean [Left Arm] Blood Pressure Position [Left Arm] Pulse Oximetry 97 95 96 Oxygen Delivery Method Sepsis Recent Fever Within 48 Hours Sepsis New/Unexplained Change in Mental Status Sepsis Action Taken by Nursing 09/04/20 11:30 09/04/20 11:31 09/04/20 11:40 Temperature Temperature Source Pulse Rate 65 61 69 Pulse Rate [Right Finger] Pulse Rate from SpO2 Sensor 66 54 L 67 Pulse Rhythm [Right Finger] Pulse Strength [Right Finger] Respiratory Rate 18 19 16 Respiratory Effort / Characteristics Respiratory Depth Respiratory Pattern Blood Pressure 127/66 Blood Pressure [Left Arm] Blood Pressure Mean 86 Blood Pressure Mean [Left Arm] Blood Pressure Position [Left Arm] Pulse Oximetry 96 94 97 Oxygen Delivery Method Sepsis Recent Fever Within 48 Hours Sepsis New/Unexplained Change in Mental Status Sepsis Action Taken by Nursing 09/04/20 11:50 09/04/20 12:00 09/04/20 12:01 Temperature Temperature Source Pulse Rate 64 61 67 Pulse Rate [Right Finger] Pulse Rate from SpO2 Sensor 57 L 61 63 Pulse Rhythm [Right Finger] Pulse Strength [Right Finger] Respiratory Rate 16 20 17 Respiratory Effort / Characteristics Respiratory Depth Respiratory Pattern Blood Pressure 128/83 Blood Pressure [Left Arm] Blood Pressure Mean 98 Blood Pressure Mean [Left Arm] Blood Pressure Position [Left Arm] Pulse Oximetry 97 97 96 Oxygen Delivery Method Sepsis Recent Fever Within 48 Hours Sepsis New/Unexplained Change in Mental Status Sepsis Action Taken by Nursing 09/04/20 12:10 09/04/20 12:20 09/04/20 13:00 Temperature Temperature Source Pulse Rate 56 L 82 71 Pulse Rate [Right Finger] Pulse Rate from SpO2 Sensor 50 L 49 L 68 Pulse Rhythm [Right Finger] Pulse Strength [Right Finger] Respiratory Rate 16 11 L 13 Respiratory Effort / Characteristics Respiratory Depth Respiratory Pattern Blood Pressure 117/79 Blood Pressure [Left Arm] Blood Pressure Mean 91 Blood Pressure Mean [Left Arm] Blood Pressure Position [Left Arm] Pulse Oximetry 94 98 96 Oxygen Delivery Method Sepsis Recent Fever Within 48 Hours Sepsis New/Unexplained Change in Mental Status Sepsis Action Taken by Nursing 09/04/20 13:10 09/04/20 13:20 09/04/20 13:30 Temperature Temperature Source Pulse Rate 60 65 67 Pulse Rate [Right Finger] Pulse Rate from SpO2 Sensor 62 60 62 Pulse Rhythm [Right Finger] Pulse Strength [Right Finger] Respiratory Rate 12 22 17 Respiratory Effort / Characteristics Respiratory Depth Respiratory Pattern Blood Pressure 99/70 L Blood Pressure [Left Arm] Blood Pressure Mean 79 Blood Pressure Mean [Left Arm] Blood Pressure Position [Left Arm] Pulse Oximetry 96 95 94 Oxygen Delivery Method Sepsis Recent Fever Within 48 Hours Sepsis New/Unexplained Change in Mental Status Sepsis Action Taken by Nursing 09/04/20 13:31 09/04/20 13:40 09/04/20 13:50 Temperature Temperature Source Pulse Rate 69 66 70 Pulse Rate [Right Finger] Pulse Rate from SpO2 Sensor 60 67 67 Pulse Rhythm [Right Finger] Pulse Strength [Right Finger] Respiratory Rate 14 14 20 Respiratory Effort / Characteristics Respiratory Depth Respiratory Pattern Blood Pressure Blood Pressure [Left Arm] Blood Pressure Mean Blood Pressure Mean [Left Arm] Blood Pressure Position [Left Arm] Pulse Oximetry 97 94 96 Oxygen Delivery Method Sepsis Recent Fever Within 48 Hours Sepsis New/Unexplained Change in Mental Status Sepsis Action Taken by Nursing 09/04/20 14:00 09/04/20 14:01 09/04/20 14:10 Temperature Temperature Source Pulse Rate 68 72 78 Pulse Rate [Right Finger] Pulse Rate from SpO2 Sensor 57 L 67 60 Pulse Rhythm [Right Finger] Pulse Strength [Right Finger] Respiratory Rate 21 14 14 Respiratory Effort / Characteristics Respiratory Depth Respiratory Pattern Blood Pressure 117/74 Blood Pressure [Left Arm] Blood Pressure Mean 88 Blood Pressure Mean [Left Arm] Blood Pressure Position [Left Arm] Pulse Oximetry 95 95 95 Oxygen Delivery Method Sepsis Recent Fever Within 48 Hours Sepsis New/Unexplained Change in Mental Status Sepsis Action Taken by Nursing 09/04/20 14:20 09/04/20 14:30 09/04/20 14:31 Temperature Temperature Source Pulse Rate 67 61 63 Pulse Rate [Right Finger] Pulse Rate from SpO2 Sensor 63 61 61 Pulse Rhythm [Right Finger] Pulse Strength [Right Finger] Respiratory Rate 15 19 20 Respiratory Effort / Characteristics Respiratory Depth Respiratory Pattern Blood Pressure 111/74 Blood Pressure [Left Arm] Blood Pressure Mean 86 Blood Pressure Mean [Left Arm] Blood Pressure Position [Left Arm] Pulse Oximetry 97 97 96 Oxygen Delivery Method Sepsis Recent Fever Within 48 Hours Sepsis New/Unexplained Change in Mental Status Sepsis Action Taken by Nursing Physical Exam GENERAL: He is oriented to person, place, and time. He appears well-developed and well-nourished. He does not appear distressed. HENT: Exam performed. - Head: Normocephalic and atraumatic. - Right Ear: External ear normal. No mastoid tenderness. - Left Ear: External ear normal. No mastoid tenderness. - Mouth/Throat: The oropharynx is clear and moist. No trismus in the jaw. No dental abscesses or uvula swelling. No oropharyngeal exudate or tonsillar abscesses. EYES: Conjunctivae and EOM are normal. Pupils are equal, round, and reactive to light. Right eye exhibits no discharge. Left eye exhibits no discharge. No scleral icterus. NECK: Normal range of motion. Neck supple. No JVD present. No spinous process tenderness present. No carotid bruit present. No rigidity. No tracheal deviation and normal range of motion present. No Brudzinski's sign and no Kernig's sign noted. CV: Normal rate, regular rhythm, normal heart sounds and intact distal pulses. There is no peripheral edema. Palpable radial pulses bue. PULM/CHEST: Effort normal and breath sounds normal. No respiratory distress. No stridor. He has no wheezes. He has no rales. - Chest Wall: He exhibits no tenderness. ABD: The abdomen is soft. Bowel sounds are normal. He has no distension. No mass is present. There is no tenderness. There is no rebound, no guarding, no May's sign and no tenderness at McBurney's point. Rovsig negative. MUSC/SKEL: Normal range of motion. There is no peripheral edema, tenderness or deformity. LYMPH: No cervical adenopathy. NEURO: He is alert and oriented to person, place, and time. He has normal strength. No cranial nerve deficit or sensory deficit. Coordination and gait normal. GCS eye subscore is 4. GCS verbal subscore is 5. GCS motor subscore is 6. Cerebellar tests wnl. SKIN: Skin is warm and dry. He is not diaphoretic. PSYCH: He has a normal mood and affect. Behavior is normal. Judgment and thought content normal. Course Course 1042: The patient was evaluated in room C11. A complete history and physical exam was performed Cardiac monitoring: An order was placed for continuous cardiac monitoring. The monitor shows a rate of 70 with sinus rhythm 1230: Vital signs stable. Labs within normal limits. Patient has no elevated white blood cell count. No fevers. Imaging does show pneumonia. Patient has no cough. Based on the patient's clinical history, it does not sound like the patient does have pneumonia that is causing his chest pain, it does sound more A CS in nature. Patient has significant risk factors for ACS including being a current smoker and his age. Given that the patient's chest pain feels like pressure with exertion the patient will be admitted to the [facility] hospitalist team. The patient was treated for pneumonia with doxycycline and Rocephin. Discussed case with Dr. [facility] hospitalist who agreed to evaluate the patient. Administered Medications Sodium Chloride (Nss 1000ml) 1,000 mls @ 125 mls/hr IV .Q8H [facility] Stop: 10/04/20 11:14 Last Infusion: 09/04/20 16:41 Dose: 125 mls/hr Documented by: [id number] Infusion: 09/04/20 15:35 Dose: 0 mls/hr Documented by: [id number] Admin: 09/04/20 11:17 Dose: 125 mls/hr Documented by: [id number] Discontinued Medications Doxycycline Hyclate (Doxycycline Hyclate 100 Mg Cap) 100 mg PO NOW STA Stop: 09/04/20 12:26 Last Admin: 09/04/20 13:01 Dose: 100 mg Documented by: [id number] Ceftriaxone Sodium (Rocephin) 1,000 mg in 50 mls @ 100 mls/hr IV NOW STA Stop: 09/04/20 12:54 Last Infusion: 09/04/20 13:30 Dose: 0 mls/hr Documented by: [id number] Admin: 09/04/20 13:01 Dose: 100 mls/hr Documented by: [id number] Medical Decision Making Laboratory Data Result diagrams: 09/04/20 11:00 09/04/20 11:00 Labs: Lab Results 09/04/20 09/04/20 09/04/20 Range/Units 11:00 11:00 11:28 WBC 10.13 (4.8-10.8) K/uL RBC 4.87 (4.7-6.1) M/uL Hgb 15.3 (14.0-18.0) g/dL Hct 44.4 (42-52) % MCV 91.2 (80-100) fL MCH 31.4 (25-34) pg MCHC 34.5 (32-36) g/dL RDW Std Deviation 47.9 H (36.4-46.3) fL RDW Coeff of Twin 14.3 (11.5-14.5) % Plt Count 279 (130-400) K/uL MPV 11.2 H (7.4-10.4) fL Immature Gran % (Auto) 0.2 % Neut % (Auto) 49.6 % Lymph % (Auto) 37.8 % [place] % (Auto) 8.8 % Eos % (Auto) 2.9 % Baso % (Auto) 0.7 % Neut # (Auto) 5.03 (1.4-6.5) K/uL Lymph # (Auto) 3.83 H (1.2-3.4) K/uL [place] # (Auto) 0.89 H (0.11-0.59) K/uL Eos # (Auto) 0.29 (0-0.5) K/uL Baso # (Auto) 0.07 (0-0.2) K/uL Immature Gran # (Auto) 0.02 (0.00-0.02) K/uL PT 9.9 (9.0-12.0) Seconds INR 1.0 (0.9-1.1) APTT 27.1 (21.0-31.0) Seconds PTT Ratio 1.0 D-Dimer 350 (0-500) ug/L FEU Carboxyhemoglobin % THgb Sodium 137 (136-145) mmol/L Potassium 4.0 (3.5-5.1) mmol/L Chloride 108 H (98-107) mmol/L Carbon Dioxide 24 (21-32) mmol/L Anion Gap 5.0 (3-11) BUN 17 (7-18) mg/dl Creatinine 0.73 (0.6-1.4) mg/dl Est Cr Clr Drug Dosing 129.6 ml/min Est GFR ( Amer) 121.9 ml/min Est GFR (Non-Af Amer) 105.2 ml/min BUN/Creatinine Ratio 23.8 H (10-20) Glucose 98 (70-99) mg/dl Calcium 8.9 (8.5-10.1) mg/dl Magnesium 2.4 (1.8-2.4) mg/dl Troponin I < 0.015 (0-0.045) ng/ml Lipase 114 (73-393) U/L COVID-19 Eval Order SARS-CoV-2 (PCR) (Negative) 09/04/20 09/04/20 09/04/20 Range/Units 11:28 13:06 13:06 WBC (4.8-10.8) K/uL RBC (4.7-6.1) M/uL Hgb (14.0-18.0) g/dL Hct (42-52) % MCV (80-100) fL MCH (25-34) pg MCHC (32-36) g/dL RDW Std Deviation (36.4-46.3) fL RDW Coeff of Twin (11.5-14.5) % Plt Count (130-400) K/uL MPV (7.4-10.4) fL Immature Gran % (Auto) % Neut % (Auto) % Lymph % (Auto) % [place] % (Auto) % Eos % (Auto) % Baso % (Auto) % Neut # (Auto) (1.4-6.5) K/uL Lymph # (Auto) (1.2-3.4) K/uL [place] # (Auto) (0.11-0.59) K/uL Eos # (Auto) (0-0.5) K/uL Baso # (Auto) (0-0.2) K/uL Immature Gran # (Auto) (0.00-0.02) K/uL PT (9.0-12.0) Seconds INR (0.9-1.1) APTT (21.0-31.0) Seconds PTT Ratio D-Dimer (0-500) ug/L FEU Carboxyhemoglobin 0.0 % THgb Sodium (136-145) mmol/L Potassium (3.5-5.1) mmol/L Chloride (98-107) mmol/L Carbon Dioxide (21-32) mmol/L Anion Gap (3-11) BUN (7-18) mg/dl Creatinine (0.6-1.4) mg/dl Est Cr Clr Drug Dosing ml/min Est GFR ( Amer) ml/min Est GFR (Non-Af Amer) ml/min BUN/Creatinine Ratio (10-20) Glucose (70-99) mg/dl Calcium (8.5-10.1) mg/dl Magnesium (1.8-2.4) mg/dl Troponin I (0-0.045) ng/ml Lipase (73-393) U/L COVID-19 Eval Order Covid19 at [facility] SARS-CoV-2 (PCR) NEGATIVE (Negative) Imaging Data Chest x-ray: Radiologist's impression: Chest X-Ray 09/04/20 11:01 XR chest 1V portable CLINICAL HISTORY: Chest pain. COMPARISON STUDY: Chest radiograph May 28, 2017. FINDINGS: Lung volumes are normal. There is no pneumothorax or pleural effusion. Left basilar opacity is present. Diffuse interstitial thickening is present. Cardiomediastinal silhouette is stable. IMPRESSION: 1. Left basilar opacity. This may reflect pneumonia. Radiographic follow-up to ensure resolution is recommended. 2. Apparent pulmonary vascular congestion, similar to prior exam. ACT 112: Negative or not required by law. Electronically signed by: Jem Wilkins M.D. 09/04/2020 11:33 AM ECG Data Indication: chest pain Rhythm: normal sinus Findings: no ST depression, no ST elevation and no prolonged QT Additional Comments: QRS 66 MDM Narrative Vital signs stable. Labs within normal limits. Patient has no elevated white blood cell count. No fevers. Imaging does show pneumonia. Patient has no cough. Based on the patient's clinical history, it does not sound like the patient does have pneumonia that is causing his chest pain, it does sound more ACS in nature. Patient has significant risk factors for ACS including being a current smoker and his age. Given that the patient's chest pain feels like pressure with exertion the patient will be admitted to the [facility] hospitalist team. The patient was treated for pneumonia with doxycycline and Rocephin. Discussed case with Dr. [facility] hospitalist who agreed to evaluate the patient. Impression & Plan Chest pain Discharge Plan Visit Data Chief Complaint: Chest Pain ED Provider: Ben Pablo Discharge Problem: Chest pain Patient Disposition: Admitted As Inpatient Discharge Instructions Interventions: ED Discharge Assessment Last Done: 09/04/20 15:28 Discharge Problem: Chest pain Qualifiers: Chest pain type: unspecified Qualified Code(s): R07.9 - Chest pain, unspecified
[2020-09-04] MEDS: NICOTINE 21 MG/24 HR TDSY TD SCH (21:56)
[2020-09-05 04:38] LABS: Basophils # (auto) 0.05 K/uL (0-0.2); Basophils % (auto) 0.6 %; Eosinophils # (auto) 0.35 K/uL (0-0.5); Eosinophils % (auto) 4.2 %; Hematocrit (blood only) 43.4 % (42-52); Hemoglobin 14.8 g/dL (14.0-18.0); Immature Granulocytes # (auto) 0.02 K/uL (0.00-0.02); Immature Granulocytes % (auto) 0.2 %; Lymphocytes # (auto) 3.33 K/uL (1.2-3.4); Mean Corpuscular Hgb Conc 34.1 g/dL (32-36); Mean Platelet Volume 10.4 fL (7.4-10.4); Monocytes # (auto) 0.83 K/uL (0.11-0.59); Neutrophils # (auto) 3.74 K/uL (1.4-6.5); Platelet Count 249 K/uL (130-400); RDW Coefficient of Variation 14.2 % (11.5-14.5); RDW Standard Deviation 47.2 fL (36.4-46.3); Red Blood Count 4.77 M/uL (4.7-6.1); White Blood Count 8.32 K/uL (4.8-10.8)
[2020-09-05] MEDS: SODIUM CHLORIDE 0.9% 1000ML 1,000 ML IV SCH ×2 (04:49→08:15)
[2020-09-05 04:57] LABS: BUN Creatinine Ratio 24.5 (10-20); Blood Urea Nitrogen 14 mg/dl (7-18); Carbon Dioxide 22 mmol/L (21-32); Chloride 114 mmol/L (98-107); Creatinine Clr Calc Pharmacy 162.9 ml/min; Est GFR (Non-African American) 115.6 ml/min; Glucose 95 mg/dl (70-99); Magnesium 2.6 mg/dl (1.8-2.4); Potassium 4.1 mmol/L (3.5-5.1); Sodium 140 mmol/L (136-145)
[2020-09-05 05:03] LABS: Chol HDL Ratio 6; Cholesterol 248 mg/dl (0-200); HDL Cholesterol 39 mg/dl; LDL Cholesterol Calculated 171 mg/dl; Triglycerides 192 mg/dl (0-150); Troponin I < 0.015 ng/ml (0-0.045); VLDL Cholesterol 38 mg/dl
[2020-09-05] MEDS ORDERED: Nursing to Pharmacy Communication SCH ×2 (08:30→10:00)
[2020-09-05] MEDS ORDERED: LEVOTHYROXINE SODIUM 88 MCG TABLET PO SCH (09:00)
[2020-09-05] MEDS ORDERED: LORATADINE 10 MG TAB PO SCH (09:00)
[2020-09-05] MEDS ORDERED: LOPERAMIDE HCL 2 MG CAP PO PRN (09:24)
[2020-09-05] MEDS: NICOTINE 21 MG/24 HR TDSY TD SCH (10:53)
--- NOTE | 2020-09-05 14:24 | Cardiology Consultation ---
Date of Consultation September 05, 2020 Assessment & Plan (1) Chest pain: (2) Palpitations: (3) PAC (premature atrial contraction): (4) Dyslipidemia: (5) Tobacco abuse: ASSESSMENT/PLAN: 1. Chest pain: His chest pain is quite atypical and does not appear to be consistent with ischemic heart disease. It has been present for greater than 50 hours with negative troponin levels and no ischemic changes noted on stress testing, although stress test did not attain target heart rate. His pain is reproducible on the right side of his chest and appears to be musculoskeletal in origin. Would not recommend any further ischemic evaluation for this particular chest pain at this time. He was reminded to seek immediate medical attention for changing or worsening symptoms. Risk factor modification was strongly recommended. 2. Palpitations: There does not appear to be any significant correlation with his ectopy noted on telemetry and his symptoms as this was evaluated while speaking to him today. He was reassured about his PACs and no specific treatment is recommended at this time. If he should have more severe or concerning palpitations as an outpatient, could consider outpatient monitoring at that time. 3. PACs: Reassured. No specific treatment warranted at this time. 4. Dyslipidemia: LDL is significantly elevated. Given his risk factors, would recommend high-intensity statin therapy. He has not tolerated Lipitor in the past due to diarrhea. Recommend Crestor 20 mg daily and labs followed up with his PCP. Recommended Mediterranean diet regular cardiovascular exercise. He should start slowly in buildup as tolerated. 5. Tobacco abuse: Recommended that he stop smoking. Congratulated for cutting back. 6. Disposition: Plan of care discussed with Dr. Lu of the primary hospitalist service. Recommend close follow-up with his PCP. Please call with any other questions or concerns. Thank you for allowing me to participate in the care of your patient. Please call for any other questions or concerns. Sincerely, Julio Posada M.D. History of Present Illness Reason for Consultation: Palpitations Requesting Physician: Dr. Hatch Attending Physician: Josiah Lu DO History of Present Illness Mr. Boo is a pleasant 54-year-old gentleman with a history significant for hypothyroidism who was admitted on 09/04/2020 with palpitations and chest pain. He apparently had Synthroid adjusted 4-5 days ago. Two days ago, he had palpitations and chest discomfort. Chest discomfort started 2 days ago at 9:00 a.m. and felt like a pounding hammer on the right side of his chest. It was 9/10 on the pain scale. It was worse with exertion and occurred while he was working. 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 He had no shortness of breath, syncope, near-syncope, edema, or bleeding. There was no significant diaphoresis. The chest pain has been constant since that time, well over 50 hours at this point. The pain has improved to a 2/10, but continues to occur constantly. In the emergency department he was found to have frequent ectopy, described as PACs. He continues to feel palpitations on and off. During our discussion, telemetry was in [place] and I asked him to let me know when he felt palpitations. When he described palpitations, he typically was in the midst of a run of sinus rhythm without ectopy. When he had ectopy, he denies any symptoms. Telemetry has not demonstrated any arrhythmia. He drinks 4 cups of coffee per day. He does not exercise but remains active as noted. He admits that he was concerned yesterday that perhaps he was having a heart attack. He denies orthopnea, or PND. Review of systems: As above. Review systems otherwise negative/unremarkable. Family history: No known premature CAD in first-degree relatives. Social history: He has smoked approximately a 30 pack year history. He currently smoking 7 cigarettes per day, down from 1 pack per day. No signi ficant alcohol or drug abuse. He is . He lives with his gavi and her 2 children. He had 2 sons, 1 of which from drug use. His other son lives in [place] but they have not spoken for 4-5 years. He works as a numerical control machine machinist. He is unaccompanied today. Allergies Allergy/AdvReac Type Severity Reaction Status Date / Time levothyroxine AdvReac Severe AGITATION Verified 09/04/20 12:08 Home Medications Medication Instructions Recorded Confirmed Type levothyroxine 112 mcg PO DAILY 09/04/20 09/04/20 History loratadine 10 mg PO DAILY 09/04/20 09/04/20 History Patient History Medical History Asthma Dyslipidemia Hypothyroid Surgical History S/P ureteral stent placement Social History Smoking Status: Current every day smoker Tobacco Type: Cigarettes Cigarettes Per Day: 10; Hx Alcohol Use: Yes Hx Substance Use: No Preferred Language: Frisian Communication Ability: Effective Word Processor Required: No Beliefs That Will Affect Care: None Current Living Situation: Significant Other Other Information That Helps Us Care for You: No Feels Safe at Home: Yes Safety Concerns: Feels Safe At This Time Assistive Devices: Glasses Physical Exam Physical Exam: Gen.: No acute distress. Alert and oriented. HEENT: Anicteric sclera. Neck: No JVD. No bruits. Normal carotid upstrokes bilaterally. Cardiac: PMI was nondisplaced. No ventricular heave. Regular rate and rhythm. Normal S1-S2. No murmurs, rubs, or gallops. Pulmonary: Clear to auscultation bilaterally without wheezes, rales, or rhonchi. Abdomen: Soft, nontender, nondistended, with normoactive bowel sounds. No bruits noted. Extremities: 2+ radial pulses bilaterally. 2+ posterior tibialis pulses bilaterally. No edema or cyanosis. Psychiatric: Affect appears appropriate. Chest: Focal tenderness on palpation on the right side of his chest, reproducing chest pain described in HPI. Results & Data ([facility]) Vital Signs (Past 12 Hours) Vital Signs Temp Pulse Pulse Resp BP Pulse Ox 09/05/20 11:35 36.6 C 67 18 94/62 L 97 09/05/20 07:41 37.1 C 89 18 126/83 96 09/05/20 07:30 66 09/05/20 03:00 36.8 C 81 20 121/84 95 Laboratory Results Laboratory Results - last 24 hr 09/04/20 09/04/20 09/05/20 16:46 22:22 04:26 WBC RBC Hgb Hct MCV MCH MCHC RDW Std Deviation RDW Coeff of Twin Plt Count MPV Immature Gran % (Auto) Neut % (Auto) Lymph % (Auto) Park % (Auto) Eos % (Auto) Baso % (Auto) Neut # (Auto) Lymph # (Auto) Park # (Auto) Eos # (Auto) Baso # (Auto) Immature Gran # (Auto) Sodium 140 Potassium 4.1 Chloride 114 H Carbon Dioxide 22 Anion Gap 4.0 BUN 14 Creatinine 0.58 L Est Cr Clr Drug Dosing 162.9 Est GFR ( Amer) 134.0 Est GFR (Non-Af Amer) 115.6 BUN/Creatinine Ratio 24.5 H Glucose 95 Calcium 8.0 L Magnesium 2.6 H Troponin I < 0.015 < 0.015 < 0.015 Triglycerides 192 H Cholesterol 248 H LDL Cholesterol, Calc 171 VLDL Cholesterol, Calc 38 HDL Cholesterol 39 Cholesterol/HDL Ratio 6 09/05/20 04:26 WBC 8.32 RBC 4.77 Hgb 14.8 Hct 43.4 MCV 91.0 MCH 31.0 MCHC 34.1 RDW Std Deviation 47.2 H RDW Coeff of Twin 14.2 Plt Count 249 MPV 10.4 Immature Gran % (Auto) 0.2 Neut % (Auto) 45.0 Lymph % (Auto) 40.0 Park % (Auto) 10.0 Eos % (Auto) 4.2 Baso % (Auto) 0.6 Neut # (Auto) 3.74 Lymph # (Auto) 3.33 Park # (Auto) 0.83 H Eos # (Auto) 0.35 Baso # (Auto) 0.05 Immature Gran # (Auto) 0.02 Sodium Potassium Chloride Carbon Dioxide Anion Gap BUN Creatinine Est Cr Clr Drug Dosing Est GFR ( Amer) Est GFR (Non-Af Amer) BUN/Creatinine Ratio Glucose Calcium Magnesium Troponin I Triglycerides Cholesterol LDL Cholesterol, Calc VLDL Cholesterol, Calc HDL Cholesterol Cholesterol/HDL Ratio Diagnostic Findings Telemetry personally reviewed: Sinus rhythm with sinus bradycardia, PACs, and PVCs. No arrhythmia. ECGs personally reviewed: ECG 09/04/2020 at 10:46 a.m.: Sinus rhythm with sinus arrhythmia at 67 beats per minute. Cannot rule out septal infarct. ECG 09/04/2020 at 11:05 a.m.: Sinus rhythm with PAC and PVCs at 73 beats per minute. Possible septal infarct. Stress echo images personally reviewed from 09/05/2020: He did not reach target heart rate, attaining approximately 77% MPHR. There were no obvious ischemic changes noted on stress echo. There were no ischemic changes noted on stress ECG. He did have a hypertensive response and stopped exercising due to dizziness when his systolic blood pressure was greater than 210. Chest x-ray 09/04/2020: Left basilar opacity per Radiology. Otherwise, diffuse interstitial thickening. Medications Administered Current Inpatient Medications Sodium Chloride (Nss 1000ml) 1,000 mls @ 125 mls/hr IV .Q8H [facility] Stop: 10/04/20 11:14 Last Admin: 09/05/20 08:15 Dose: 125 mls/hr Documented by: Levothyroxine Sodium (Levothyroxine Sodium 88 Mcg Tablet) 88 mcg PO DAILY@0600 [facility] Stop: 10/06/20 05:59 Loperamide HCl (Loperamide Hcl 2 Mg Cap) 2 mg PO Q6 PRN PRN Reason: Diarrhea Stop: 10/05/20 09:23 Loratadine (Loratadine 10 Mg Tab) 10 mg PO DAILY [facility] Stop: 10/05/20 08:59 Last Admin: 09/05/20 08:14 Dose: 10 mg Documented by: Miscellaneous (Remove Nicoderm Patch) 1 ea N/A DAILY@2058 [facility] Stop: 10/05/20 20:58 Nicotine (Nicotine 21 Mg/24 Hr Tdsy) 21 mg TD HS [facility] Stop: 10/05/20 20:59 Nitroglycerin (Nitroglycerin Sl 0.4 Mg/Tab Tab) 0.4 mg SL UD PRN PRN Reason: Chest Pain Stop: 10/04/20 11:00 PG Care Time/CCT Total # of Minutes Spent Total Time Spent with Patient: Total time spent is greater than 50% in coordination of care (as documented) at patient's floor/unit and/or counseling patient: Coding Level of Care Code 12019 Office/OBS Consult Lvl 4 Diagnoses Chest pain R07.9 Chest pain type: unspecified Palpitations R00.2 PAC (premature atrial contraction) I49.1 Dyslipidemia E78.5 Tobacco abuse Z72.0 (1) Chest pain Chest pain type: unspecified Qualified Code(s): R07.9 - Chest pain, unspecified
--- NOTE | 2020-09-05 14:55 | Communication Note ---
Date of Service: September 05, 2020 This patient was seen in concert with Dr. Posada and we discussed and agreed upon the history, physical, assessment, and plan. See attending's note for d etails. Resident Activity Tracking Resident Involvement: Resident Care Provided Care Provided: Adult [facility] Medicine
--- NOTE | 2020-09-05 15:17 | Discharge Summary ---
Date of Service September 05, 2020 Admission HPI Per Admitting Provider This is a 54-year-old male with past history of hypothyroidism presents today complaining of palpitation chest pain. Patient is a good historian. Patient tells me that his symptoms started around 6/5 or 66. He noticed episodic palpitations with some tightness in the upper substernal area. There were no radiations. There is no diaphoresis. He did not have any shortness of breath at any point. He attributes this discomfort to a recent increase in his levothyroxine from 88 mcg to 112 mcg, he had started the new dose late last week after picking it up from the pharmacy. He does not know his TSH lab values. At the time of evaluation, the patient appears to be comfortable, his O2 sat is 99% on room air. He describes very minimal chest pressure but otherwise has no symptoms. Of note, patient appears to have normal sinus rhythm on monitor and EKG with frequent PACs. Patient is not aware of any arrhythmias prior to today's visit. Principal Diagnosis Chest pain and palpitations Discharge Exam Constitutional well developed, + obese and comfortable; no acute distress Neck trachea midline, no thyromegaly Respiratory normal respiratory effort, lungs clear to auscultation Cardiovascular RRR, no murmur, no edema Chest (Breasts) Chest: normal inspection of chest (tenderness to palpation over right chest wall) Gastrointestinal (Abdomen) normal bowel sounds, soft, nontender, no hepatosplenomegaly Musculoskeletal no cyanosis or clubbing, extremities motor strength 5/5 Skin no rashes, warm and dry Neurologic patellar DTR's 2+ bilat, sensation intact and PERRL, EOMI, accommodation nl, no face palsy, no dysarthria Psychiatric A+Ox3, euthymic affect Lymphatic no cervical or axillary lymphadenopathy Discharge Data Allergies Allergy/AdvReac Type Severity Reaction Status Date / Time levothyroxine AdvReac Severe AGITATION Verified 09/04/20 12:08 Consultations 09/04/20 12:26 ED Decision to Admit Stat 09/04/20 16:40 Consult Cardiology Routine Hospital Course (1) Chest pain: ongoing right sided pain for 2 days troponin negative x 3 sets EKG without ischemic changes has risk factors for CAD: obese, LDL 170, daily smoker, male exercise stress echo: could get to 77% max heart rate no ischemic changes on EKG no wall motion changes on echo will start on Crestor 20mg, recommend he takes a baby aspirin daily, stop smoking (2) Palpitations: on monitor the only abnormal beats were PACs and very rarely PVCs he was not symptomatic when he had them negative exercise stress echo (3) Hypothyroid: Will decrease levothyroxine to 88 mcg for now, patient can follow-up with his primary care physician after discharge further dose adjustment. he claims that his palpitations, chest pain correlated with increasing his levothyroxine to 112mcg (4) PAC (premature atrial contraction): Total Time Total Time Spent Total Time Spent (In Minutes): 36 Total Time Includes: Examination of the Patient, Discharge Planning, Medication Reconciliation and Communication With Other Providers (Dr. Posada) Discharge Plan Discharge Items Patient Disposition: Home - Self-Care Reason For Visit: palpitations Discharge Diagnosis: Chest pain, non-cardiac Dyslipidemia Tobacco abuse Condition on Discharge: Good Goals: stop smoking take Crestor to lower cholesterol Activity: Resume your previous activity Driving/Machine Use: No limitations Weightbearing: Full weightbearing Non-emergency contact: Primary Care Provider Call non-emergency contact if: you have any medication questions Follow-up/Referrals: Tayla Luna PA-C [Primary Care Provider] - 09/12/20 2:30 pm (one week) Diet: Heart Healthy Addtl Attending Provider Instructions: Medications: - LEVOTHYROXINE: lower dose to 88mcg daily - CRESTOR: 20mg daily to lower risk of coronary disease - ASPIRIN: 81mg daily to lower risk of heart attack Chest pain, right sided for 48 hours prior to admission negative heart enzymes and no ischemic changes on EKG, rules out heart attack stress test: you achieved 77% of max heart rate which is sub optimal resting echo showed normal heart function, no changes with stress, no changes on EKG tracing while on treadmill -- NEGATIVE stress test pain likely muscular as it is reproducible you have risk factors for coronary disease despite the negative stress test: smoking, elevated LDL (bad cholesterol), overweight, male recommend you take Crestor 20mg daily to lower cholesterol recommend you make every effort to stop smoking try to lose weight, a reasonable target would be 10-20% of body weight, you are 209 lbs so 20-30 lbs, discuss with PCP healthy weight loss options recommend you take a baby aspirin 81mg every morning since your symptoms correlated with increased dose of levothyroxine, we reduced your dose to 88mcg, follow up with PCP recommend repeat TSH in 6-8 weeks recommend lipid panel in 3-4 months Pending Studies at Discharge: No Stand-Alone Forms: My [facility], Smoking Cessation Medications and DC Order Prescriptions: New levothyroxine [Synthroid] 88 mcg Tablet 88 mcg PO DAILY@0600 30 Days Qty: 30 RF: 0 rosuvastatin [Crestor] 20 mg tablet 20 mg PO DAILY Qty: 30 RF: 3 Continued loratadine 10 mg Tablet 10 mg PO DAILY RF: 0 Discontinued levothyroxine 112 mcg tablet 112 mcg PO DAILY RF: 0 Discharge Orders: Discharge Order (Routine); Ordered 09/05/20 Ordered By: Josiah Lu Admission Data Admit Date/Time: 09/04/20 14:34 Attending Provider: Josiah Lu Admit Provider: Gerry Hatch Primary Care Provider: Tayla Luna Other Providers: Gerry Hatch ; Franky Posada Other Interventions: Discharge Summary Assessment (RN) Last Done: 09/05/20 15:29 Coding Level of Care Code D/C Day Management >30 mins Diagnoses Chest pain R07.9 Palpitations R00.2 Hypothyroid E03.9 PAC (premature atrial contraction) I49.1
[2020-09-05] MEDS ORDERED: NICOTINE 21 MG/24 HR TDSY TD SCH (21:00)
--- NOTE | 2020-09-05 22:07 | XCELERA ---
[id number]
[2020-09-06] MEDS ORDERED: LEVOTHYROXINE SODIUM 88 MCG TABLET PO SCH (06:00)
--- NOTE | 2020-09-06 06:00 | Electrocardiogram Report ---
Test Reason : Blood Pressure : / mmHG Vent. Rate : 067 BPM Atrial Rate : 067 BPM P-R Int : 170 ms QRS Dur : 066 ms QT Int : 370 ms P-R-T Axes : 064 041 050 degrees QTc Int : 390 ms Sinus rhythm with marked sinus arrhythmia vs blocked PACs Low voltage QRS Septal infarct , age undetermined Abnormal ECG When compared with ECG of 27-JUN-2017 11:03, Septal infarct is now Present Confirmed by Franky Posada ([id number]) on 09/06/2020 6:00:22 AM Referred By: REFERRED SELF Confirmed By:Franky Posada
--- NOTE | 2020-09-06 06:02 | Electrocardiogram Report ---
Test Reason : Blood Pressure : / mmHG Vent. Rate : 073 BPM Atrial Rate : 073 BPM P-R Int : 172 ms QRS Dur : 076 ms QT Int : 382 ms P-R-T Axes : 067 031 037 degrees QTc Int : 420 ms Sinus rhythm with Premature supraventricular complexes and with occasional Premature ventricular comp lexes Low voltage QRS Septal infarct (cited on or before 04-SEP-2020) Abnormal ECG When compared with ECG of 04-SEP-2020 10:46, Premature ventricular complexes are now Present Confirmed by Franky Posada ([id number]) on 09/06/2020 6:02:06 AM Referred By: REFERRED SELF Confirmed By:Franky Posada
== END 2020-09-05 18:45 | disposition home or self-care (01) | DRG 310 ==
LOC: ED 10:40 → SUATTDRO 14:34 → INTOOBSV 14:34 → 2S 14:34

== ENCOUNTER 2022-04-27 12:40 | Inpatient (IN) ==
[2022-04-27] MEDS ORDERED: SODIUM CHLORIDE 0.9% 1000ML 1,000 ML IV SCH (12:45)
[2022-04-27] MEDS ORDERED: OPTIRAY 320 500ml IV ONE (13:02)
[2022-04-27 13:03] LABS: Basophils # (auto) 0.09 K/uL (0-0.2); Basophils % (auto) 0.9 %; Eosinophils # (auto) 0.49 K/uL (0-0.50); Hemoglobin 15.3 g/dl (14.0-18.0); Immature Granulocytes # (auto) 0.03 K/uL (0.01-0.20); Immature Granulocytes % (auto) 0.3 %; Lymphocytes # (auto) 3.28 K/uL (1.2-3.4); Lymphocytes % (auto) 33.2 %; Mean Corpuscular Hemoglobin 30.1 pg (25.0-34.0); Mean Corpuscular Volume 88.6 fL (80.0-100.0); Mean Platelet Volume 10.6 fL (9.4-12.4); Monocytes # (auto) 0.96 K/uL (0.11-0.59); Monocytes % (auto) 9.7 %; Neutrophils # (auto) 5.02 K/uL (1.40-6.50); Neutrophils % (auto) 50.9 %; Platelet Count 259 K/uL (130-400); RDW Coefficient of Variation 13.9 % (11.5-14.5); RDW Standard Deviation 45.6 fL (36.4-46.3); Red Blood Count 5.08 M/uL (4.70-6.10); White Blood Count 9.87 K/ul (4.8-10.8)
--- NOTE | 2022-04-27 13:12 | Emergency Department Note ---
Impression & Plan Stroke-like symptoms ED Provider Note INFORMANT: Patient ED PROVIDER(S): Amaury Khan MD CHIEF COMPLAINT: Strokelike symptoms PLAN: Disposition: Admitted Condition: Good Outpatient prescription management: none Referral: None MEDICAL DECISION MAKING: Patient presented from the cardiology office due to concerns about left upper extremity weakness. The patient did have weakness on examination. He was made a stroke alert. Unfortunately he is out of the thrombolytic window with his symptoms now being over 7 hours. He had a nonischemic ECG. His CBC and chemistry panels were unremarkable. The patient's troponin negative. He underwent CT imaging which included angiography of the head and neck. This did not reveal any acute occlusion or intracranial event. On reassessment the patient was doing relatively well but still had mild left upper extremity weakness noted. He did note that he had somewhat of a headache. This started after arrival. The patient was given an oral dose of aspirin to complete a full dose as he took 81 mg this morning. The patient was also given a dose of Tylenol. He was hydrated with normal saline. Consultation was made with the [facility] service. The patient was evaluated in the ER and admitted for further management. After review of the information above and other included data, I feel the patient requires admission.. Triage Nursing notes reviewed and agree them. Vital Signs: reviewed and remarkable for hypertension Prior /Outside records reviewed: none Differential diagnosis: CVA, TIA, infection, dehydration, metabolic abnormality, hypo/hyperglycemia, electrolyte disturbance, anemia, hypoxia, cardiac sources, intracerebral event, toxicologic, neurologic, as well as other pathologies. Diagnostics, as interpreted by me: ECG: Twelve-lead ECG reveals a normal sinus rhythm at 69 bpm. Low voltage QRS. Inferior Q waves. Poor R wave progression anteriorly. No ST elevation. Cardiac Monitoring: Cardiac monitoring ordered by me: The patient was placed on continuous cardiac monitoring and observed. It revealed a normal sinus rhythm at 66 beats per minute without ectopy or evidence of dysrhythmia. Medical decision rules: none Imaging studies: CT and CT angiography of the head and neck revealed no acute pathology as noted above. I refer you to the EMR for further details. HPI: The patient is a 56year old male who presents to the Emergency Room with complaints of left arm weakness. This started this morning between 430 and 5 AM and is persisting. The patient also notes the following associated symptoms, some mild pain in the left trapezius area that does not radiate into the arm. The patient has taken no medication for relieving factors. Current pain is rated as 0/10. Patient was in the ER last night and had a cardiac rule out performed. He had a follow-up with Dr. Moore of cardiology today. He was being evaluated and noted the weakness. Cardiology was concerned about possible TIA versus stroke as the patient has a history of the same. He was referred to the ER for further evaluation. Pt denies LOC, headache, fevers, chills, diaphoresis, visual changes, radicular neck pain, chest pain, breathing difficulties, nausea, vomiting, abdominal pain, back pain, melena, hematochezia, urinary symptoms, numbness, slurred speech, confusion, lymphadenopathy, rash, or other complaints. PAST MEDICAL HISTORY: See Below, TIA, high cholesterol PAST SURGICAL HISTORY: See Below, lithotripsy SOCIAL HISTORY: See Below, current smoker HOME MEDICATIONS: See Below ALLERGIES: See Below VITALS: See Below PHYSICAL EXAMINATION: GENERAL: Awake, alert, well-appearing, in no distress HENT: Normocephalic, atraumatic. Oropharynx unremarkable. EYES: Normal conjunctiva. Sclera non-icteric. PERRLA. EOMI. NECK: Inspection normal. Non-tender. Supple. No nuchal rigidity. FROM. No masses. RESPIRATORY: Clear to auscultation. No wheezes. No rales. Normal respiratory effort. CARDIAC: Normal rate. Normal rhythm. No murmurs. No rubs. Extremities warm and well perfused. Pulses equal. No JVD. GI: Soft, non-distended. No tenderness to palpation. No rebound or guarding. No masses. RECTAL: Deferred. MUSCULOSKELETAL: Atraumatic. Chest examination reveals no tenderness. The back is symmetrical on inspection without obvious abnormality. There is no CVA tenderness to palpation. No joint edema. LOWER EXTREMITIES: Calves are equal size bilaterally and non-tender. No edema. No discoloration. NEURO: Normal sensorium. Cranial nerves II through XII intact. 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 No significant drift. No other sensory or motor deficits noted. Speech normal. Normal [id number]. SKIN: No rash or jaundice noted. Past Med/Surg History Medical History Asthma Chest pain Dyslipidemia Hypothyroid Tobacco abuse Surgical History S/P ureteral stent placement Social History Smoking Status: Current every day smoker Tobacco Type: Cigarettes Cigarettes Per Day: 10; Hx Alcohol Use: Yes Hx Substance Use: No Preferred Language: Australian Communication Ability: Effective Marketing Director Required: No Beliefs That Will Affect Care: Spiritual Current Living Situation: Significant Other Feels Safe at Home: Yes Assistive Devices: Glasses Allergies Allergies Allergy/AdvReac Type Severity Reaction Status Date / Time levothyroxine AdvReac Severe AGITATION Verified 04/27/22 11:52 Home Meds Home Medications Medication Instructions Recorded Confirmed aspirin 81 mg tablet,delayed 81 mg PO DAILY 04/13/22 04/27/22 release atorvastatin 40 mg tablet 40 mg PO DAILY 04/13/22 04/27/22 bisoprolol fumarate 5 mg tablet 2.5 mg PO DAILY 04/13/22 04/27/22 ramipril 2.5 mg capsule 2.5 mg PO DAILY 04/13/22 04/27/22 ticagrelor 90 mg tablet 90 mg PO BID 04/13/22 04/27/22 levothyroxine 112 mcg tablet 112 mcg PO DAILY 04/17/22 04/27/22 Results & Data (ED) Vital Signs Vital Signs - 24 hr 04/27/22 12:41 04/27/22 13:17 04/27/22 13:41 Temperature 36.4 C L Temperature Source Temporal Artery Scan Pulse Rate 66 Pulse Rate [Apical] 62 61 Pulse Rhythm Regular Pulse Rhythm [Apical] Regular Pulse Strength Normal Pulse Strength [Apical] Normal Respiratory Rate 20 21 20 Respiratory Effort / Characteristics Non-Labored Spontaneous Non-Labored Spontaneous Respiratory Depth Normal Normal Respiratory Pattern Regular Blood Pressure 143/82 H Blood Pressure [Right Arm] 107/66 155/106 H Blood Pressure Mean 102 Blood Pressure Mean [Right Arm] 79 122 Blood Pressure Position Lying Pulse Oximetry 98 98 99 Oxygen Delivery Method Room Air Room Air Room Air Sepsis Recent Fever Within 48 Hours No Sepsis New/Unexplained Change in Mental Status No Sepsis Action Taken by Nursing No Action Required Laboratory Data 04/27/22 12:47 04/27/22 12:47 Lab Results 04/27/22 04/27/22 04/27/22 Range/Units 12:47 12:47 12:47 WBC 9.87 (4.8-10.8) K/ul RBC 5.08 (4.70-6.10) M/uL Hgb 15.3 (14.0-18.0) g/dl Hct 45.0 (42.0-52.0) % MCV 88.6 (80.0-100.0) fL MCH 30.1 (25.0-34.0) pg MCHC 34.0 (32.0-36.0) g/dL RDW Std Deviation 45.6 (36.4-46.3) fL RDW Coeff of Twin 13.9 (11.5-14.5) % Plt Count 259 (130-400) K/uL MPV 10.6 (9.4-12.4) fL Immature Gran % (Auto) 0.3 % Neut % (Auto) 50.9 % Lymph % (Auto) 33.2 % [place] % (Auto) 9.7 % Eos % (Auto) 5.0 % Baso % (Auto) 0.9 % Neut # (Auto) 5.02 (1.40-6.50) K/uL Lymph # (Auto) 3.28 (1.2-3.4) K/uL [place] # (Auto) 0.96 H (0.11-0.59) K/uL Eos # (Auto) 0.49 (0-0.50) K/uL Baso # (Auto) 0.09 (0-0.2) K/uL Immature Gran # (Auto) 0.03 (0.01-0.20) K/uL PT 10.1 (9.0-12.0) Seconds INR 0.9 (0.9-1.1) APTT 27.1 (21.0-31.0) Seconds PTT Ratio 1.0 Sodium (136-145) mmol/L Potassium (3.5-5.1) mmol/L Chloride (98-107) mmol/L Carbon Dioxide (21-32) mmol/L Anion Gap (3-11) BUN (6-23) mg/dl Creatinine (0.6-1.4) mg/dl Est Cr Clr Drug Dosing ml/min Est GFR ( Amer) ml/min Est GFR (Non-Af Amer) ml/min BUN/Creatinine Ratio (10-20) Glucose (70-99(Fasting)) mg/dl POC Glucose (70-99) mg/dl Calcium (8.5-10.1) mg/dl Magnesium (1.7-2.4) mg/dl Total Bilirubin (0.2-1.0) mg/dl AST (13-39) U/L ALT (7-52) U/L Alkaline Phosphatase (34-104) U/L Troponin I High Sens (0-20) pg/ml Total Protein (6.0-8.3) gm/dl Albumin (3.4-5.0) gm/dl Globulin (2.5-4.0) gm/dl Albumin/Globulin Ratio (0.9-2) Blood Type A Positive Antibody Screen NEGATIVE 04/27/22 04/27/22 Range/Units 12:47 13:12 WBC (4.8-10.8) K/ul RBC (4.70-6.10) M/uL Hgb (14.0-18.0) g/dl Hct (42.0-52.0) % MCV (80.0-100.0) fL MCH (25.0-34.0) pg MCHC (32.0-36.0) g/dL RDW Std Deviation (36.4-46.3) fL RDW Coeff of Twin (11.5-14.5) % Plt Count (130-400) K/uL MPV (9.4-12.4) fL Immature Gran % (Auto) % Neut % (Auto) % Lymph % (Auto) % [place] % (Auto) % Eos % (Auto) % Baso % (Auto) % Neut # (Auto) (1.40-6.50) K/uL Lymph # (Auto) (1.2-3.4) K/uL [place] # (Auto) (0.11-0.59) K/uL Eos # (Auto) (0-0.50) K/uL Baso # (Auto) (0-0.2) K/uL Immature Gran # (Auto) (0.01-0.20) K/uL PT (9.0-12.0) Seconds INR (0.9-1.1) APTT (21.0-31.0) Seconds PTT Ratio Sodium 141 (136-145) mmol/L Potassium 4.0 (3.5-5.1) mmol/L Chloride 108 H (98-107) mmol/L Carbon Dioxide 28 (21-32) mmol/L Anion Gap 5 (3-11) BUN 13 (6-23) mg/dl Creatinine 0.80 (0.6-1.4) mg/dl Est Cr Clr Drug Dosing 115.9 ml/min Est GFR ( Amer) 115.7 ml/min Est GFR (Non-Af Amer) 99.9 ml/min BUN/Creatinine Ratio 16.3 (10-20) Glucose 71 (70-99(Fasting)) mg/dl POC Glucose 95 (70-99) mg/dl Calcium 9.0 (8.5-10.1) mg/dl Magnesium 2.2 (1.7-2.4) mg/dl Total Bilirubin 0.4 (0.2-1.0) mg/dl AST 17 (13-39) U/L ALT 24 (7-52) U/L Alkaline Phosphatase 70 (34-104) U/L Troponin I High Sens 4.5 (0-20) pg/ml Total Protein 7.7 (6.0-8.3) gm/dl Albumin 4.1 (3.4-5.0) gm/dl Globulin 3.6 (2.5-4.0) gm/dl Albumin/Globulin Ratio 1.1 (0.9-2) Blood Type Antibody Screen Administered Medications Sodium Chloride (Nss 1000ml) 1,000 mls @ 50 mls/hr IV .Q20H TRINA Stop: 05/27/22 12:44 Last Admin: 04/27/22 13:16 Dose: 50 mls/hr Documented By: HJW Discontinued Medications Acetaminophen (Acetaminophen 500 Mg Tab) 1,000 mg PO NOW STA Stop: 04/27/22 14:35 Last Admin: 04/27/22 14:47 Dose: 1,000 mg Documented By: CGK Aspirin (Aspirin Chew 324 Mg) 243 mg PO NOW STA Stop: 04/27/22 14:35 Last Admin: 04/27/22 14:48 Dose: 243 mg Documented By: CGK Ioversol (Optiray 320 500ml) 117 ml IV ONCE ONE Stop: 04/27/22 13:03 Last Admin: 04/27/22 13:02 Dose: 117 ml Documented By: MADISON Imaging Data Radiologist's Impression: Chest X-Ray 04/27/22 12:45 XR chest 1V portable CLINICAL HISTORY: neuro deficit, acute stroke suspected COMPARISON STUDY: Chest radiograph April 26, 2012. FINDINGS: There is no pneumothorax or pleural effusion. Cardiomediastinal silhouette is stable. Cardiac monitoring device is incidentally noted. Interstitial thickening is unchanged. There is no consolidation. No evidence for pulmonary edema. IMPRESSION: No acute cardiopulmonary findings. No change in appearance of the chest. ACT 112: Negative or not required by law. Electronically signed by: Jem Wilkins M.D. 04/27/2022 1:[address] 04/27/22 12:[address] OF THE BRAIN; CT ANGIOGRAM OF THE BRAIN; CT ANGIOGRAM OF THE NECK CLINICAL HISTORY: Slurred speech. Neurological deficit. Stroke like symptoms. COMPARISON STUDY: CT of the brain dated 06/27/2017. MRI of the brain dated 05/28/2017. TECHNIQUE: Unenhanced axial CT scan of the brain is performed. Subsequently, following the IV administration of 117 of Optiray 320, CT angiogram of the head and neck was performed from the aortic arch to the vertex. Images are reviewed in the axial, sagittal, and coronal planes. 3-D MIPS images are created and assessed. IV contrast was administered without complication. All measurements were calculated based on NASCET criteria. A dose lowering technique was utilized adhering to the principles of ALARA. CT DOSE: 1079.83 mGy.cm FINDINGS: Brain parenchyma: The brain parenchyma is normal in appearance. There is no hemorrhage, mass effect, or evidence of acute territorial ischemia by CT criteria. There is no evidence of enhancing mass lesion on the angiogram phase images. The ventricles, sulci, and cisterns are normal in configuration. Ramon- white matter differentiation is preserved. No extra-axial fluid collection is seen. Thoracic aorta: Visualized portions of the thoracic aorta are normal in caliber. The aortic arch demonstrates standard 3-vessel anatomy. Right carotid arterial system: The right common carotid artery is widely patent, as are the right internal and external carotid arteries. Mild calcified plaque is seen in the carotid bulb. Left carotid arterial system: The left common carotid artery is widely patent, as are the left internal and external carotid arteries. Calcified plaque is noted in the carotid bulb. Vertebral arteries: The vertebral arteries are widely patent bilaterally noting mild right-sided dominance. Subclavian arteries: Widely patent bilaterally. Intracranial vasculature: The internal carotid arteries are patent at the skull base, as are the anterior and middle cerebral arteries bilaterally. The vertebrobasilar system and posterior cerebral arteries are widely patent. The right vertebral artery is dominant. There is no aneurysm, high-grade stenosis, or focal vessel cut off seen throughout the intracranial circulation. Jugular veins: Patent bilaterally. Dural sinuses: Patent. Lung apices: Emphysematous change is noted. Upper lobe lung parenchyma is otherwise clear as imaged. Soft tissues: The visualized pharyngeal soft tissues are normal in appearance noting angiographic phase technique. The oropharyngeal airway appears widely patent. The thyroid gland is mildly enlarged and heterogeneous. The salivary glands are normal in appearance. No cervical lymphadenopathy is seen. Skeletal structures: The calvarium appears intact. The cervical spine is maintained noting mild spondylosis. No lytic or blastic lesion is seen. Orbits: The bony orbits are intact. Orbital contents are normal as visualized. Sinuses and mastoids: The paranasal sinuses are clear. The mastoid air cells are well pneumatized. IMPRESSION: 1. There is no hemorrhage, mass effect, or evidence of acute territorial ischemia by CT criteria. 2. Unremarkable CT angiogram of the brain. 3. Unremarkable CT angiogram of the neck. 4. Emphysema. ACT 112: Negative or not required by law. Electronically signed by: Manny Buck M.D. 04/27/2022 1:16 PM Head CTA 04/27/22 12:[address] OF THE BRAIN; CT ANGIOGRAM OF THE BRAIN; CT ANGIOGRAM OF THE NECK CLINICAL HISTORY: Slurred speech. Neurological deficit. Stroke like symptoms. COMPARISON STUDY: CT of the brain dated 06/27/2017. MRI of the brain dated 05/28/2017. TECHNIQUE: Unenhanced axial CT scan of the brain is performed. Subsequently, following the IV administration of 117 of Optiray 320, CT angiogram of the head and neck was performed from the aortic arch to the vertex. Images are reviewed in the axial, sagittal, and coronal planes. 3-D MIPS images are created and assessed. IV contrast was administered without complication. All measurements were calculated based on NASCET criteria. A dose lowering technique was utilized adhering to the principles of ALARA. CT DOSE: 1079.83 mGy.cm FINDINGS: Brain parenchyma: The brain parenchyma is normal in appearance. There is no hemorrhage, mass effect, or evidence of acute territorial ischemia by CT criteria. There is no evidence of enhancing mass lesion on the angiogram phase images. The ventricles, sulci, and cisterns are normal in configuration. Ramon- white matter differentiation is preserved. No extra-axial fluid collection is seen. Thoracic aorta: Visualized portions of the thoracic aorta are normal in caliber. The aortic arch demonstrates standard 3-vessel anatomy. Right carotid arterial system: The right common carotid artery is widely patent, as are the right internal and external carotid arteries. Mild calcified plaque is seen in the carotid bulb. Left carotid arterial system: The left common carotid artery is widely patent, as are the left internal and external carotid arteries. Calcified plaque is noted in the carotid bulb. Vertebral arteries: The vertebral arteries are widely patent bilaterally noting mild right-sided dominance. Subclavian arteries: Widely patent bilaterally. Intracranial vasculature: The internal carotid arteries are patent at the skull base, as are the anterior and middle cerebral arteries bilaterally. The vertebrobasilar system and posterior cerebral arteries are widely patent. The right vertebral artery is dominant. There is no aneurysm, high-grade stenosis, or focal vessel cut off seen throughout the intracranial circulation. Jugular veins: Patent bilaterally. Dural sinuses: Patent. Lung apices: Emphysematous change is noted. Upper lobe lung parenchyma is otherwise clear as imaged. Soft tissues: The visualized pharyngeal soft tissues are normal in appearance noting angiographic phase technique. The oropharyngeal airway appears widely patent. The thyroid gland is mildly enlarged and heterogeneous. The salivary glands are normal in appearance. No cervical lymphadenopathy is seen. Skeletal structures: The calvarium appears intact. The cervical spine is maintained noting mild spondylosis. No lytic or blastic lesion is seen. Orbits: The bony orbits are intact. Orbital contents are normal as visualized. Sinuses and mastoids: The paranasal sinuses are clear. The mastoid air cells are well pneumatized. IMPRESSION: 1. There is no hemorrhage, mass effect, or evidence of acute territorial ischemia by CT criteria. 2. Unremarkable CT angiogram of the brain. 3. Unremarkable CT angiogram of the neck. 4. Emphysema. ACT 112: Negative or not required by law. Electronically signed by: Manny Buck M.D. 04/27/2022 1:16 PM Neck CTA 04/27/22 12:[address] OF THE BRAIN; CT ANGIOGRAM OF THE BRAIN; CT ANGIOGRAM OF THE NECK CLINICAL HISTORY: Slurred speech. Neurological deficit. Stroke like symptoms. COMPARISON STUDY: CT of the brain dated 06/27/2017. MRI of the brain dated 05/28/2017. TECHNIQUE: Unenhanced axial CT scan of the brain is performed. Subsequently, following the IV administration of 117 of Optiray 320, CT angiogram of the head and neck was performed from the aortic arch to the vertex. Images are reviewed in the axial, sagittal, and coronal planes. 3-D MIPS images are created and assessed. IV contrast was administered without complication. All measurements were calculated based on NASCET criteria. A dose lowering technique was utilized adhering to the principles of ALARA. CT DOSE: 1079.83 mGy.cm FINDINGS: Brain parenchyma: The brain parenchyma is normal in appearance. There is no hemorrhage, mass effect, or evidence of acute territorial ischemia by CT criteria. There is no evidence of enhancing mass lesion on the angiogram phase images. The ventricles, sulci, and cisterns are normal in configuration. Ramon- white matter differentiation is preserved. No extra-axial fluid collection is seen. Thoracic aorta: Visualized portions of the thoracic aorta are normal in caliber. The aortic arch demonstrates standard 3-vessel anatomy. Right carotid arterial system: The right common carotid artery is widely patent, as are the right internal and external carotid arteries. Mild calcified plaque is seen in the carotid bulb. Left carotid arterial system: The left common carotid artery is widely patent, as are the left internal and external carotid arteries. Calcified plaque is noted in the carotid bulb. Vertebral arteries: The vertebral arteries are widely patent bilaterally noting mild right-sided dominance. Subclavian arteries: Widely patent bilaterally. Intracranial vasculature: The internal carotid arteries are patent at the skull base, as are the anterior and middle cerebral arteries bilaterally. The vertebrobasilar system and posterior cerebral arteries are widely patent. The right vertebral artery is dominant. There is no aneurysm, high-grade stenosis, or focal vessel cut off seen throughout the intracranial circulation. Jugular veins: Patent bilaterally. Dural sinuses: Patent. Lung apices: Emphysematous change is noted. Upper lobe lung parenchyma is otherwise clear as imaged. Soft tissues: The visualized pharyngeal soft tissues are normal in appearance noting angiographic phase technique. The oropharyngeal airway appears widely patent. The thyroid gland is mildly enlarged and heterogeneous. The salivary glands are normal in appearance. No cervical lymphadenopathy is seen. Skeletal structures: The calvarium appears intact. The cervical spine is maintained noting mild spondylosis. No lytic or blastic lesion is seen. Orbits: The bony orbits are intact. Orbital contents are normal as visualized. Sinuses and mastoids: The paranasal sinuses are clear. The mastoid air cells are well pneumatized. IMPRESSION: 1. There is no hemorrhage, mass effect, or evidence of acute territorial ischemia by CT criteria. 2. Unremarkable CT angiogram of the brain. 3. Unremarkable CT angiogram of the neck. 4. Emphysema. ACT 112: Negative or not required by law. Electronically signed by: Manny Buck M.D. 04/27/2022 1:16 PM Discharge Plan Visit Data Chief Complaint: TIA Symptoms Stated Complaint: REF FOR TIA SYMPTOMS, LEFT ARM WEAKNESS ED Provider: Amaury Khan Discharge Problem: Stroke-like symptoms Forms Stand Alone Forms: My [facility] Prescriptions Prescriptions: No Action aspirin 81 mg tablet,delayed release (DR/EC) 81 mg PO DAILY atorvastatin 40 mg tablet 40 mg PO DAILY bisoprolol fumarate 5 mg tablet 2.5 mg PO DAILY ramipril 2.5 mg capsule 2.5 mg PO DAILY ticagrelor 90 mg tablet 90 mg PO BID levothyroxine 112 mcg tablet 112 mcg PO DAILY Referrals Referrals: Himanshu Cortez PA-C [Primary Care Provider] -
--- NOTE | 2022-04-27 13:17 | CT Scan Report ---
UNENHANCED CT OF THE BRAIN; CT ANGIOGRAM OF THE BRAIN; CT ANGIOGRAM OF THE NECK CLINICAL HISTORY: Slurred speech. Neurological deficit. Stroke like symptoms. COMPARISON STUDY: CT of the brain dated 06/27/2017. MRI of the brain dated 05/28/2017. TECHNIQUE: Unenhanced axial CT scan of the brain is performed. Subsequently, following the IV adminis tration of 117 of [address] 320, CT angiogram of the head and neck was performed from the aortic arch t o the vertex. Images are reviewed in the axial, sagittal, and coronal planes. 3-D MIPS images are cre ated and assessed. IV contrast was administered without complication. All measurements were calculate d based on NASCET criteria. A dose lowering technique was utilized adhering to the principles of ALA RA. CT DOSE: 1079.83 mGy.cm FINDINGS: Brain parenchyma: The brain parenchyma is normal in appearance. There is no hemorrhage, mass effect, or evidence of acute territorial ischemia by CT criteria. There is no evidence of enhancing mass lesi on on the angiogram phase images. The ventricles, sulci, and cisterns are normal in configuration. Gr ay-white matter differentiation is preserved. No extra-axial fluid collection is seen. Thoracic aorta: Visualized portions of the thoracic aorta are normal in caliber. The aortic arch demo nstrates standard 3-vessel anatomy. Right carotid arterial system: The right common carotid artery is widely patent, as are the right int ernal and external carotid arteries. Mild calcified plaque is seen in the carotid bulb. Left carotid arterial system: The left common carotid artery is widely patent, as are the left internal medicine veterinary technician al and external carotid arteries. Calcified plaque is noted in the carotid bulb. Vertebral arteries: The vertebral arteries are widely patent bilaterally noting mild right-sided sharmila nance. Subclavian arteries: Widely patent bilaterally. Intracranial vasculature: The internal carotid arteries are patent at the skull base, as are the ante rior and middle cerebral arteries bilaterally. The vertebrobasilar system and posterior cerebral nic daniel are widely patent. The right vertebral artery is dominant. There is no aneurysm, high-grade sten osis, or focal vessel cut off seen throughout the intracranial circulation. Jugular veins: Patent bilaterally. Dural sinuses: Patent. Lung apices: Emphysematous change is noted. Upper lobe lung parenchyma is otherwise clear as imaged. Soft tissues: The visualized pharyngeal soft tissues are normal in appearance noting angiographic pha se technique. The oropharyngeal airway appears widely patent. The thyroid gland is mildly enlarged an d heterogeneous. The salivary glands are normal in appearance. No cervical lymphadenopathy is seen. Skeletal structures: The calvarium appears intact. The cervical spine is maintained noting mild spond ylosis. No lytic or blastic lesion is seen. Orbits: The bony orbits are intact. Orbital contents are normal as visualized. Sinuses and mastoids: The paranasal sinuses are clear. The mastoid air cells are well pneumatized. IMPRESSION: 1. There is no hemorrhage, mass effect, or evidence of acute territorial ischemia by CT criteria. 2. Unremarkable CT angiogram of the brain. 3. Unremarkable CT angiogram of the neck. 4. Emphysema. ACT 112: Negative or not required by law. Electronically signed by: Manny Buck M.D. 04/27/2022 1:16 PM
--- NOTE | 2022-04-27 13:21 | XRay Report ---
XR chest 1V portable CLINICAL HISTORY: neuro deficit, acute stroke suspected COMPARISON STUDY: Chest radiograph April 26, 2012. FINDINGS: There is no pneumothorax or pleural effusion. Cardiomediastinal silhouette is stable. Cardi ac monitoring device is incidentally noted. Interstitial thickening is unchanged. There is no consoli dation. No evidence for pulmonary edema. IMPRESSION: No acute cardiopulmonary findings. No change in appearance of the chest. ACT 112: Negative or not required by law. Electronically signed by: Jem Wilkins M.D. 04/27/2022 1:20 PM
[2022-04-27 13:35] LABS: INR 0.9 (0.9-1.1); Partial Thromboplastin Time 27.1 Seconds (21.0-31.0); Prothrombin Time 10.1 Seconds (9.0-12.0); Troponin I High Sensitivity 4.5 pg/ml (0-20)
[2022-04-27 13:51] LABS: Albumin Level 4.1 gm/dl (3.4-5.0); Bilirubin,Total 0.4 mg/dl (0.2-1.0); Magnesium 2.2 mg/dl (1.7-2.4)
[2022-04-27 13:57] LABS: Albumin Globulin Ratio 1.1 (0.9-2); BUN Creatinine Ratio 16.3 (10-20); Creatinine Clr Calc Pharmacy 115.9 ml/min; Est GFR (African American) 115.7 ml/min; Est GFR (Non-African American) 99.9 ml/min; Globulin 3.6 gm/dl (2.5-4.0); Total Protein 7.7 gm/dl (6.0-8.3)
[2022-04-27] MEDS ORDERED: ACETAMINOPHEN 500 MG TAB PO STA (14:34)
[2022-04-27] MEDS ORDERED: ASPIRIN CHEW 324 MG PO STA (14:34)
--- NOTE | 2022-04-27 14:46 | Electrocardiogram Report ---
Test Reason : Blood Pressure : / mmHG Vent. Rate : 069 BPM Atrial Rate : 069 BPM P-R Int : 168 ms QRS Dur : 084 ms QT Int : 380 ms P-R-T Axes : 071 -08 -26 degrees QTc Int : 407 ms Normal sinus rhythm Low voltage QRS Inferior infarct (cited on or before 26-APR-2022) Poor R wave progression, consider anterior OH vs. lead placement vs. LVH Abnormal ECG When compared with ECG of 26-APR-2022 20:40, No significant change was found Confirmed by Car Miller ([id number]) on 04/27/2022 2:46:35 PM Referred By: REFERRED SELF Confirmed By:Car Miller
[2022-04-27] MEDS ORDERED: ONDANSETRON INJ 2 MG/ML 2 ML VIAL IV PRN (16:12)
[2022-04-27] MEDS ORDERED: ACETAMINOPHEN 325 MG TAB PO PRN (16:12)
[2022-04-27] MEDS ORDERED: PHARMACIST DISCHARGE MED REC CONSULT PRN (16:12)
--- NOTE | 2022-04-27 16:41 | History & Physical Report ---
Date of Service April 27, 2022 Assessment & Plan (1) Stroke-like symptoms: Plan: 56-year-old male presenting with concerning symptoms for acute onset of LEFT upper extremity weakness in the setting of recent PTCI with drug-eluting stent placement. Patient requiring ongoing evaluation for stroke work-up. * Patient is well outside the window of thrombolytic therapy by the time he arrived to the emergency department. * Patient is with prior history of similar symptoms in the past and equated it to prior TIAs. * On exam, he has subjective slight weakness of the LEFT upper extremity versus right. Otherwise, his exam is unremarkable. * CT and CTA of the head and neck were otherwise unremarkable. * Would likely not gain added benefit with performing carotid duplex. * Written review of cardiology's notes, there was concern for performing MRI which certainly I would be interested in entertaining given the patient's stuttering symptoms and what sounds like recurrence in symptoms of LEFT upper extremity weakness. Will defer to cardiology/neurology. * Echocardiogram for the sake of completion. * Patient is already on aspirin and Brilinta. We will continue for now. * PT OT evaluations. * Appreciate neurology guidance on this interesting case. (2) Left arm weakness: Plan: * As above (3) Chest pain: Plan: * Patient with recent STEMI who is status post PTCI with AMY to the RCA. * EKG without acute significant findings today. * Troponins remain negative. (4) Obstructive sleep apnea: Plan: * Sounds as though the patient's episodes of bradycardia have been related to sleep pattern and likely obstructive versus central sleep apnea. He certainly would warrant formal sleep evaluation in the outpatient setting. Will order BiPAP to be utilized while hospitalized. (5) Benign essential hypertension: Plan: * Continue home medications as prescribed (6) Coronary artery disease: Plan: * Continue ASCVD Rx per typical. (7) Hypothyroid: Plan: * Continue home levothyroxine. History of Present Illness Primary Care Provider: Himanshu Cortez PA-C Patient is a 56-year-old male with a significant past medical history of coronary artery disease status post PTCI with AMY to the RCA recently, hypothyroidism, hyperlipidemia, tobacco abuse, JOHAN, and dysrhythmia. Patient has apparently had a previous history of TIA in the past as well. Per patient and recent documentation, the patient had presented to the [facility] on 03/30 with concerns for LEFT-sided chest pain and LEFT upper extremity weakness. He was evaluated and eventually underwent PTCI where he received a drug-eluting stent to his RCA. During that evaluation, neurology did evaluate the patient and there was concern about performing MRI secondary to recent stent placement. He reports that his symptoms had resolved at that point and he had been placed on Brilinta as well as aspirin which he continues to take. Patient was having pauses while admitted for his STEMI and had an outpatient loop recorder placed. There was concern for significant sleep apnea and he had some form of study performed and was placed on a home mask which he has been using. Patient has been transitioning his care to [facility] recently as he reports a "poor experience" at [facility] during his hospitalization. He recently followed with interventional cardiology and was actually at his electrophysiology appointment this morning when he informed them of his LEFT upper extremity weakness which has been ongoing since approximately 430 this morning. Patient states that this was similar to his prior histories of TIAs in the past. He states that his sensation has near completely resolved, but he does still have some residual weakness. He denies any facial droop or weakness but reports that he has been having some "twitching" of his face. He denies no weakness of his lower extremities. Patient also denies complaints of headaches, dizziness, lightheadedness, blurry vision, double vision, slurred speech, nausea, vomiting, chest pain, or palpitations. Allergies Allergy/AdvReac Type Severity Reaction Status Date / Time levothyroxine AdvReac Severe AGITATION Verified 04/27/22 15:32 Home Medications Medication Instructions Recorded Confirmed Type aspirin 81 mg tablet,delayed 81 mg PO DAILY 04/13/22 04/27/22 History release atorvastatin 40 mg tablet 40 mg PO QPM 04/13/22 04/27/22 History bisoprolol fumarate 5 mg tablet 2.5 mg PO DAILY 04/13/22 04/27/22 History ramipril 2.5 mg capsule 2.5 mg PO DAILY 04/13/22 04/27/22 History ticagrelor 90 mg tablet 90 mg PO BID 04/13/22 04/27/22 History levothyroxine 112 mcg tablet 112 mcg PO DAILY 04/17/22 04/27/22 History Past Med/Surg History Medical History Asthma Chest pain Dyslipidemia Hypothyroid Tobacco abuse Surgical History S/P ureteral stent placement Social History Smoking Status: Current every day smoker Tobacco Type: Cigarettes Cigarettes Per Day: 10; Hx Alcohol Use: Yes Hx Substance Use: No Preferred Language: Monegasque Communication Ability: Effective Cage/Vault Supervisor Required: No Beliefs That Will Affect Care: None Current Living Situation: Significant Other Feels Safe at Home: Yes Assistive Devices: CPAP Review of Systems Review of Systems: A complete 10 point review of systems was reviewed with the patient with pertinent positives and negatives as per history of present illness. All else were negative. Physical Exam Physical Exam: VITAL SIGNS - Vital signs and nursing notes were reviewed. GENERAL - 56-year-old male appearing his stated age who is in no acute distress. Communicates well with provider and answers questions appropriately. HEAD - Normocephalic, Atraumatic. EYES - PERRL with EOMI bilaterally. Sclera anicteric. EARS - No deformities of external structures noted on gross examination bilaterally. NOSE - Midline and without cyanosis. No epistaxis or purulent drainage noted. MOUTH/OROPHARYNX - Without perioral cyanosis. Buccal mucosa pink and moist. NECK - Neck with FROM. Supple to palpation. No lymphadenopathy noted. No nuchal rigidity. LUNGS - Chest wall symmetric without accessory muscle use, intercostals retractions, or central cyanosis. Normal vesicular breath sounds CTA B/L. No wheezes, rales, or rhonchi appreciated. CARDIAC - RRR with S1/S2. No murmur, rubs, or gallops appreciated. ABDOMEN - Abdominal contour flat without pulsations or visible masses. BS normoactive all four quadrants. No tenderness, palpable masses, hepatosplenomegaly, or ascites noted. EXTREMITIES - No pretibial edema present. +3/5 radial and dorsalis pedis pulses palpated throughout. FROM with no tremors, fasciculations, or clonus noted on PROM throughout. +4/5 strength appreciated LEFT versus right of the upper extremities. +5/5 strength appreciated bilaterally of the lower extremities. NEUROLOGIC - Cranial nerves II through XII grossly intact. Sensory intact to light touch throughout. Patellar reflexes +2/4, Achilles reflexes present. Patient able to perform rapid alternating movements appropriately. Negative Drift. PSYCH - A&Ox3 and cooperates fully with examiner. Pt is very pleasant and interacts well with examiner. Results & Data Results & Data ([facility]) Vital Signs (Past 12 Hours) Vital Signs Temp Pulse Pulse Resp BP BP Pulse Ox 04/27/22 16:00 63 14 04/27/22 15:56 141/82 H 04/27/22 15:56 67 16 04/27/22 15:30 58 L 19 98 04/27/22 15:00 60 25 H 99 04/27/22 14:30 61 17 99 04/27/22 14:00 97 04/27/22 13:45 155/106 H 04/27/22 13:45 68 28 H 100 04/27/22 13:35 58 L 20 96 04/27/22 13:23 112/60 04/27/22 13:23 59 L 17 96 04/27/22 13:07 63 19 97 04/27/22 15:00 64 20 141/82 H 98 04/27/22 13:41 61 20 155/106 H 99 04/27/22 13:17 62 21 107/66 98 04/27/22 12:41 36.4 C L 66 20 143/82 H 98 O2 Del Method 04/27/22 16:00 04/27/22 15:56 04/27/22 15:56 04/27/22 15:30 04/27/22 15:00 04/27/22 14:30 04/27/22 14:00 04/27/22 13:45 04/27/22 13:45 04/27/22 13:35 04/27/22 13:23 04/27/22 13:23 04/27/22 13:07 04/27/22 15:00 Room Air 04/27/22 13:41 Room Air 04/27/22 13:17 Room Air 04/27/22 12:41 Room Air Code Status & VTE Plan VTE Prophylaxis Plan VTE Prophylaxis will be ordered: Yes Supervising Physician Co-Signing Physician Notes I personally saw and examined the patient. I verified all younger points and agree with Chapo Guzman PA-C with the following exceptions and/or additions: 56 year old male presents with left upper extremity weakness and pain coming from his neck O/E HS RRR, no murmurs, Chest CTAB, Abdo SNT, CN 2-> 12 intact, mild pronator drift on left upper extremity, left transfer station operator strength 4+/5, elbow flexion 4+/5, otherwise 5/5 in all extremities, no sensory deficit, normal speech exam A/P LUE weakness and pain - given pain appears to be a part of his symptoms suggests this is more cervical spine pathology and will get MRI cervical spine in addition to completing stroke workup with MRI brain. Consult neurology. PG Care Time/CCT Total # of Minutes Spent Total Time Spent with Patient: Total time spent is greater than 50% in coordination of care (as documented) at patient's floor/unit and/or counseling patient: Coding Level of Care Code 53161 INT INP/OBS CARE 2/55MIN Diagnoses Stroke-like symptoms R29.90 Left arm weakness R29.898 Chest pain R07.9 Obstructive sleep apnea G47.33 Benign essential hypertension I10 Coronary artery disease I25.10 Hypothyroid E03.9 Time Spent (min) 45
--- NOTE | 2022-04-27 20:36 | XRay Report ---
BONY ORBITS 3 VIEWS CLINICAL HISTORY: MRI clearance. FINDINGS: 3 views of the bony orbits are compared to study dated 05/28/2017. There is no radiodense/met allic foreign body seen in the region of the bony orbits. The bony orbits are intact as imaged. The v isualized paranasal sinuses and the mastoid air cells appear clear. The imaged calvarium appears inta ct. IMPRESSION: There is no radiodense/metallic foreign body seen in the region of the bony orbits. ACT 112: Negative or not required by law. Electronically signed by: Manny Buck M.D. 04/27/2022 8:34 PM
[2022-04-27] MEDS ORDERED: ATORVASTATIN 40 MG TAB PO SCH (21:00)
[2022-04-27] MEDS: TICAGRELOR 90 MG TAB PO SCH (23:41)
[2022-04-28 00:48] LABS: Appearance Urine Clear (Clear); Bilirubin Urine Negative (Negative); Blood Urine Negative (Negative); Color Urine Yellow; Glucose Urine UA Negative (Negative); Ketones Urine Negative (Negative); Leukocyte Esterase Urine Negative (Negative); Nitrite Urine Negative (Negative); Protein Urine Negative (Negative); Specific Gravity Urine 1.021 (1.000-1.030); Urobilinogen Urine Negative (Negative); pH Urine 6.5 (4.5-7.5)
[2022-04-28 06:28] LABS: Basophils # (auto) 0.06 K/uL (0-0.2); Basophils % (auto) 0.7 %; Eosinophils # (auto) 0.55 K/uL (0-0.50); Eosinophils % (auto) 6.3 %; Hematocrit (blood only) 43.1 % (42.0-52.0); Hemoglobin 14.9 g/dl (14.0-18.0); Immature Granulocytes # (auto) 0.02 K/uL (0.01-0.20); Immature Granulocytes % (auto) 0.2 %; Lymphocytes # (auto) 3.18 K/uL (1.2-3.4); Lymphocytes % (auto) 36.6 %; Mean Corpuscular Hemoglobin 30.2 pg (25.0-34.0); Mean Corpuscular Hgb Conc 34.6 g/dL (32.0-36.0); Mean Corpuscular Volume 87.2 fL (80.0-100.0); Mean Platelet Volume 10.6 fL (9.4-12.4); Monocytes # (auto) 0.88 K/uL (0.11-0.59); Monocytes % (auto) 10.1 %; Neutrophils # (auto) 4.01 K/uL (1.40-6.50); Neutrophils % (auto) 46.1 %; Platelet Count 227 K/uL (130-400); RDW Coefficient of Variation 13.9 % (11.5-14.5); RDW Standard Deviation 44.3 fL (36.4-46.3); Red Blood Count 4.94 M/uL (4.70-6.10)
[2022-04-28] MEDS ORDERED: LEVOTHYROXINE SODIUM 112 MCG TABLET PO SCH (06:30)
[2022-04-28 06:45] LABS: BUN Creatinine Ratio 20.6 (10-20); Calcium 8.9 mg/dl (8.5-10.1); Chol HDL Ratio 2.8 (0-5); Creatinine Clr Calc Pharmacy 144.7 ml/min; Est GFR (African American) 127.7 ml/min; Est GFR (Non-African American) 110.2 ml/min; Potassium 4.2 mmol/L (3.5-5.1)
[2022-04-28 07:47] LABS: Estimated Average Glucose 128 mg/dl; Hemoglobin A1C 6.1 % (4.5-5.6)
[2022-04-28 08:13] VITALS: O2SAT 97
--- NOTE | 2022-04-28 08:15 | Magnetic Resonance Report ---
MR brain wo con HISTORY: 56 years-old Male RUE weakness acute strokelike symptoms with right upper extremity weaknes s COMPARISON: MRI cervical spine of same day, MRI brain 05/28/2017 TECHNIQUE: Multiplanar multisequence MRI of the brain was obtained without the use of IV contrast. FINDINGS: Yacht Hand localizer images demonstrate no gross extracranial abnormality. No restricted diffusion to sugg est acute or subacute infarct. Midline structures are unremarkable. Megacisterna magna. The volume an d signal of the brain parenchyma is within normal limits. No acute intracranial hemorrhage, midline s hift, abnormal extra-axial collection, hydrocephalus or intracranial mass identified. Cerebral venous sinuses and major arterial flow voids appear patent. The orbits, skull and soft tissu es are unremarkable. Trace mastoid effusions. Minimal mucosal thickening of the ethmoid air cells. IMPRESSION: No acute intracranial abnormality. ACT 112: Negative or not required by law. The above report was generated using voice recognition software. It may contain grammatical, syntax o r spelling errors. Electronically signed by: King Hamm M.D. 04/28/2022 8:13 AM
[2022-04-28] MEDS ORDERED: ENALAPRIL MALEATE 10 MG TAB PO SCH (09:00)
[2022-04-28] MEDS ORDERED: BISOPROLOL FUMARATE 5 MG TAB PO SCH (09:00)
[2022-04-28] MEDS ORDERED: ASPIRIN 81 MG ECTAB PO SCH (09:00)
--- NOTE | 2022-04-28 09:47 | Magnetic Resonance Report ---
MRI OF THE CERVICAL SPINE WITHOUT CONTRAST CLINICAL HISTORY: Left upper extremity weakness and pain. COMPARISON: None. TECHNIQUE: Utilizing a 1.5 Angie magnet and dedicated coil, multiplanar, multiecho imaging of the ce rvical spine was performed without IV contrast. FINDINGS: Alignment of the cervical spine is anatomic. Vertebral body heights are maintained. Sagittal T2 seque nce is compromised by motion artifact. Cervical cord signal is within normal limits. There is no intr acanalicular mass or fluid collection. Paravertebral soft tissues are unremarkable. Minimal multileve l degenerative changes within the cervical spine are present. C2-C3: The central canal and right neural foramen are patent. There is moderate narrowing of the lef t neural foramen due to uncovertebral hypertrophy. C3-C4: Central canal and neural foramen are patent. There is mild facet arthrosis. C4-C5: Central canal and left neural foramen are patent. There is mild right neural foraminal stenos is due to facet arthrosis. C5-C6: Central canal and neural foramen are patent. Moderate facet arthrosis. C6-C7: Central canal and neural foramen are patent. There is moderate facet arthrosis. C7-T1: Central canal and neural foramen are patent. IMPRESSION: 1. No acute process within the cervical spine MRI. 2. Exam compromised by motion artifact. However, cervical cord signal likely normal. 3. Minimal multilevel degenerative disc disease. Moderate facet arthrosis. No central canal stenosis. 4. Multilevel neural foraminal stenosis, as above. ACT 112: Negative or not required by law. Electronically signed by: Jem Wilkins M.D. 04/28/2022 9:45 AM
[2022-04-28] MEDS: TICAGRELOR 90 MG TAB PO SCH (09:59)
[2022-04-28 11:33] VITALS: TEMP 97.7
[2022-04-28 15:30] VITALS: BP 129/71; PULSE 68
--- NOTE | 2022-04-28 16:11 | Neurology Consultation ---
Date of Consultation April 28, 2022 Assessment & Plan (1) Stroke-like symptoms: Impression: The patient was referred to emergency department yesterday, after cardiology noticed left arm weakness. However, the patient reports left arm intermittent weakness, for many years, and he has been evaluated before multiple times, for TIAs, with negative stroke work-up. He also reports left hand order processing manager weakness since having myocardial infarction in early March. Stroke work-up was unremarkable including brain MRI, which was negative for acute pathology. Plan/recommendations: The patient will stay on current medications including aspirin, Brilinta and Lipitor. In case of recurrent left arm weakness, and left hand order processing manager weakness, he should make an appointment with neurology clinic. The patient is neurologically stable and can be discharged home. (2) Left arm weakness: Impression: The patient reports having recurrent left arm weakness episodes, with unclear cause. He was evaluated before many times for possible TIAs, but each time, work-up has been unremarkable. Plan/recommendations: The patient might need EMG and nerve conduction study of left upper extremity, to evaluate for peripheral pathology, in case of recurrent symptoms. Other recommendations as mentioned above. Thank you for the consultation. History of Present Illness Reason for Consultation: Left arm weakness Requesting Physician: Miller Dougherty MD Attending Physician: Miller Dougherty MD History of Present Illness The patient is a 56-year-old right-handed gentleman, who was referred to emergency department by cardiology office, due to concern of left upper extrem ity weakness. The patient was outside of window, and was not considered to be a candidate for thrombolytic treatment. Apparently, the patient had a myocardial infarction in early March, and has been kept on Brilinta and aspirin, after having coronary artery stent placement. He has been also on Lipitor. Yesterday, they noticed left arm weakness, which raise concern for stroke, and the patient was admitted to hospital for stroke evaluation. Initial head CT, CT angiogram of the head and neck were unremarkable. EKG was showing sinus rhythm. The patient reports that since having myocardial infarction, he has been dropping objects from left hand, with slight order processing manager weakness. However, he has been having episodic left arm weakness for many years, and has been evaluated many times in the past for possible TIAs, with negative imaging studies. Since admission, the patient had a brain MRI, which did not show evidence of acute pathology including cerebrovascular accident.EKG has been showing sinus rhythm. LDL was lower than 70. The patient has stayed symptom-free with persistent left hand order processing manager weakness which is not acute. I have reviewed the patient's chart including imaging studies and visualized them personally. I have discussed the case with hospitalist physician. I have answered the patient's questions in detail. Allergies Allergy/AdvReac Type Severity Reaction Status Date / Time levothyroxine AdvReac Severe AGITATION Verified 04/27/22 15:32 Home Medications Medication Instructions Recorded Confirmed Type aspirin 81 mg tablet,delayed 81 mg PO DAILY 04/13/22 04/27/22 History release atorvastatin 40 mg tablet 40 mg PO QPM 04/13/22 04/27/22 History bisoprolol fumarate 5 mg tablet 2.5 mg PO DAILY 04/13/22 04/27/22 History ramipril 2.5 mg capsule 2.5 mg PO DAILY 04/13/22 04/27/22 History ticagrelor 90 mg tablet 90 mg PO BID 04/13/22 04/27/22 History levothyroxine 112 mcg tablet 112 mcg PO DAILY 04/17/22 04/27/22 History Patient History Medical History Asthma Chest pain Dyslipidemia Hypothyroid Tobacco abuse Surgical History S/P ureteral stent placement Social History Smoking Status: Current every day smoker Tobacco Type: Cigarettes Cigarettes Per Day: 10; Hx Alcohol Use: Yes Hx Substance Use: No Preferred Language: Kyrgyz Communication Ability: Effective Payroll Consultant Required: No Beliefs That Will Affect Care: None Current Living Situation: Significant Other Other Information That Helps Us Care for You: No Feels Safe at Home: Yes Safety Concerns: Feels Safe At This Time Assistive Devices: CPAP Review of Systems Review of Systems: All systems reviewed & are unremarkable except as noted in HPI & below Physical Exam Physical Exam: General Examination: Constitutional: Well developed person in no acute distress. HENT: Normal exam with inspection. CV: Hearth rhythm is regular. Neck: Supple, no carotid bruits. Lungs: Non-labored and comfortable breathing. Abdomen: Soft, non-tender, non-distended. Skin: No rash or ecchymosis. Extremities: No edema or cyanosis NEUROLOGICAL EXAMINATION: Mental Status: Alert and oriented to place, person and time. Cranial Nerves: II-XII are intact. No nystagmus. Funduscopy: Normal looking optic discs. Motor: 5/5 in all extremities without asymmetry except left hand order processing manager is 4+/5 Tone: Normal without spasticity or rigidity. Sensory: Intact to all sensory modalities. Coordination: No dysmetria with FTN testing. Speech: Fluent. Comprehension is intact. Gait: Normal. No ataxia or abnormal walking pattern. DTRs: 2- all. No Babinsky. Musculoskeletal: Normal muscle bulk, no atrophy. Results & Data ([facility]) Vital Signs (Past 12 Hours) Vital Signs Temp Pulse Pulse Resp BP BP Pulse Ox 04/28/22 15:28 36.5 C 68 18 123/79 129/71 97 04/28/22 08:00 62 04/28/22 08:00 04/28/22 11:31 36.5 C 68 18 123/79 97 04/28/22 08:08 36.6 C 60 18 125/85 97 O2 Del Method 04/28/22 15:28 04/28/22 08:00 04/28/22 08:00 Room Air 04/28/22 11:31 Room Air 04/28/22 08:08 Room Air Laboratory Results Laboratory Results - last 24 hr 04/27/22 04/28/22 04/28/22 12:47 00:30 05:53 WBC 8.70 RBC 4.94 Hgb 14.9 Hct 43.1 MCV 87.2 MCH 30.2 MCHC 34.6 RDW Std Deviation 44.3 RDW Coeff of Twin 13.9 Plt Count 227 MPV 10.6 Immature Gran % (Auto) 0.2 Neut % (Auto) 46.1 Lymph % (Auto) 36.6 [place] % (Auto) 10.1 Eos % (Auto) 6.3 Baso % (Auto) 0.7 Neut # (Auto) 4.01 Lymph # (Auto) 3.18 [place] # (Auto) 0.88 H Eos # (Auto) 0.55 H Baso # (Auto) 0.06 Immature Gran # (Auto) 0.02 ESR 56 H Sodium Potassium Chloride Carbon Dioxide Anion Gap BUN Creatinine Est Cr Clr Drug Dosing Est GFR ( Amer) Est GFR (Non-Af Amer) BUN/Creatinine Ratio Glucose POC Glucose Estimat Average Glucose Hemoglobin A1c Calcium Triglycerides Cholesterol LDL Cholesterol, Calc VLDL Cholesterol, Calc HDL Cholesterol Cholesterol/HDL Ratio Urine Color Yellow Urine Appearance Clear Urine pH 6.5 Ur Specific [place] 1.021 Urine Protein Negative Urine Glucose (UA) Negative Urine Ketones Negative Urine Blood Negative Urine Nitrite Negative Urine Bilirubin Negative Urine Urobilinogen Negative Ur Leukocyte Esterase Negative 04/28/22 04/28/22 04/28/22 05:53 05:53 11:08 WBC RBC Hgb Hct MCV MCH MCHC RDW Std Deviation RDW Coeff of Twin Plt Count MPV Immature Gran % (Auto) Neut % (Auto) Lymph % (Auto) [place] % (Auto) Eos % (Auto) Baso % (Auto) Neut # (Auto) Lymph # (Auto) [place] # (Auto) Eos # (Auto) Baso # (Auto) Immature Gran # (Auto) ESR Sodium 141 Potassium 4.2 Chloride 111 H Carbon Dioxide 25 Anion Gap 5 BUN 13 Creatinine 0.63 Est Cr Clr Drug Dosing 144.7 Est GFR ( Amer) 127.7 Est GFR (Non-Af Amer) 110.2 BUN/Creatinine Ratio 20.6 H Glucose 101 H POC Glucose 98 Estimat Average Glucose 128 Hemoglobin A1c 6.1 H Calcium 8.9 Triglycerides 108 Cholesterol 109 LDL Cholesterol, Calc 48 VLDL Cholesterol, Calc 22 HDL Cholesterol 39 Cholesterol/HDL Ratio 2.8 Urine Color Urine Appearance Urine pH Ur Specific [place] Urine Protein Urine Glucose (UA) Urine Ketones Urine Blood Urine Nitrite Urine Bilirubin Urine Urobilinogen Ur Leukocyte Esterase Diagnostic Findings Chest X-Ray 04/27/22 12:45 XR chest 1V portable CLINICAL HISTORY: neuro deficit, acute stroke suspected COMPARISON STUDY: Chest radiograph April 26, 2012. FINDINGS: There is no pneumothorax or pleural effusion. Cardiomediastinal silhouette is stable. Cardiac monitoring device is incidentally noted. Interstitial thickening is unchanged. There is no consolidation. No evidence for pulmonary edema. IMPRESSION: No acute cardiopulmonary findings. No change in appearance of the chest. ACT 112: Negative or not required by law. Electronically signed by: Jem Wilkins M.D. 04/27/2022 1:[address] 04/27/22 12:[address] OF THE BRAIN; CT ANGIOGRAM OF THE BRAIN; CT ANGIOGRAM OF THE NECK CLINICAL HISTORY: Slurred speech. Neurological deficit. Stroke like symptoms. COMPARISON STUDY: CT of the brain dated 06/27/2017. MRI of the brain dated 05/28/2017. TECHNIQUE: Unenhanced axial CT scan of the brain is performed. Subsequently, following the IV administration of 117 of Optiray 320, CT angiogram of the head and neck was performed from the aortic arch to the vertex. Images are reviewed in the axial, sagittal, and coronal planes. 3-D MIPS images are created and assessed. IV contrast was administered without complication. All measurements were calculated based on NASCET criteria. A dose lowering technique was utilized adhering to the principles of ALARA. CT DOSE: 1079.83 mGy.cm FINDINGS: Brain parenchyma: The brain parenchyma is normal in appearance. There is no hemorrhage, mass effect, or evidence of acute territorial ischemia by CT criteria. There is no evidence of enhancing mass lesion on the angiogram phase images. The ventricles, sulci, and cisterns are normal in configuration. Ramon- white matter differentiation is preserved. No extra-axial fluid collection is seen. Thoracic aorta: Visualized portions of the thoracic aorta are normal in caliber. The aortic arch demonstrates standard 3-vessel anatomy. Right carotid arterial system: The right common carotid artery is widely patent, as are the right internal and external carotid arteries. Mild calcified plaque is seen in the carotid bulb. Left carotid arterial system: The left common carotid artery is widely patent, as are the left internal and external carotid arteries. Calcified plaque is noted in the carotid bulb. Vertebral arteries: The vertebral arteries are widely patent bilaterally noting mild right-sided dominance. Subclavian arteries: Widely patent bilaterally. Intracranial vasculature: The internal carotid arteries are patent at the skull base, as are the anterior and middle cerebral arteries bilaterally. The vertebrobasilar system and posterior cerebral arteries are widely patent. The right vertebral artery is dominant. There is no aneurysm, high-grade stenosis, or focal vessel cut off seen throughout the intracranial circulation. Jugular veins: Patent bilaterally. Dural sinuses: Patent. Lung apices: Emphysematous change is noted. Upper lobe lung parenchyma is othe rwise clear as imaged. Soft tissues: The visualized pharyngeal soft tissues are normal in appearance noting angiographic phase technique. The oropharyngeal airway appears widely patent. The thyroid gland is mildly enlarged and heterogeneous. The salivary glands are normal in appearance. No cervical lymphadenopathy is seen. Skeletal structures: The calvarium appears intact. The cervical spine is maintained noting mild spondylosis. No lytic or blastic lesion is seen. Orbits: The bony orbits are intact. Orbital contents are normal as visualized. Sinuses and mastoids: The paranasal sinuses are clear. The mastoid air cells are well pneumatized. IMPRESSION: 1. There is no hemorrhage, mass effect, or evidence of acute territorial ischemia by CT criteria. 2. Unremarkable CT angiogram of the brain. 3. Unremarkable CT angiogram of the neck. 4. Emphysema. ACT 112: Negative or not required by law. Electronically signed by: Manny Buck M.D. 04/27/2022 1:16 PM Head CTA 04/27/22 12:[address] OF THE BRAIN; CT ANGIOGRAM OF THE BRAIN; CT ANGIOGRAM OF THE NECK CLINICAL HISTORY: Slurred speech. Neurological deficit. Stroke like symptoms. COMPARISON STUDY: CT of the brain dated 06/27/2017. MRI of the brain dated 05/28/2017. TECHNIQUE: Unenhanced axial CT scan of the brain is performed. Subsequently, following the IV administration of 117 of Optiray 320, CT angiogram of the head and neck was performed from the aortic arch to the vertex. Images are reviewed in the axial, sagittal, and coronal planes. 3-D MIPS images are created and assessed. IV contrast was administered without complication. All measurements were calculated based on NASCET criteria. A dose lowering technique was utilized adhering to the principles of ALARA. CT DOSE: 1079.83 mGy.cm FINDINGS: Brain parenchyma: The brain parenchyma is normal in appearance. There is no hemorrhage, mass effect, or evidence of acute territorial ischemia by CT crite jossy. There is no evidence of enhancing mass lesion on the angiogram phase images. The ventricles, sulci, and cisterns are normal in configuration. Ramon- white matter differentiation is preserved. No extra-axial fluid collection is seen. Thoracic aorta: Visualized portions of the thoracic aorta are normal in caliber. The aortic arch demonstrates standard 3-vessel anatomy. Right carotid arterial system: The right common carotid artery is widely patent, as are the right internal and external carotid arteries. Mild calcified plaque is seen in the carotid bulb. Left carotid arterial system: The left common carotid artery is widely patent, as are the left internal and external carotid arteries. Calcified plaque is noted in the carotid bulb. Vertebral arteries: The vertebral arteries are widely patent bilaterally noting mild right-sided dominance. Subclavian arteries: Widely patent bilaterally. Intracranial vasculature: The internal carotid arteries are patent at the skull base, as are the anterior and middle cerebral arteries bilaterally. The vertebrobasilar system and posterior cerebral arteries are widely patent. The right vertebral artery is dominant. There is no aneurysm, high-grade stenosis, or focal vessel cut off seen throughout the intracranial circulation. Jugular veins: Patent bilaterally. Dural sinuses: Patent. Lung apices: Emphysematous change is noted. Upper lobe lung parenchyma is otherwise clear as imaged. Soft tissues: The visualized pharyngeal soft tissues are normal in appearance noting angiographic phase technique. The oropharyngeal airway appears widely patent. The thyroid gland is mildly enlarged and heterogeneous. The salivary glands are normal in appearance. No cervical lymphadenopathy is seen. Skeletal structures: The calvarium appears intact. The cervical spine is maintained noting mild spondylosis. No lytic or blastic lesion is seen. Orbits: The bony orbits are intact. Orbital contents are normal as visualized. Sinuses and mastoids: The paranasal sinuses are clear. The mastoid air cells are well pneumatized. IMPRESSION: 1. There is no hemorrhage, mass effect, or evidence of acute territorial ischemia by CT criteria. 2. Unremarkable CT angiogram of the brain. 3. Unremarkable CT angiogram of the neck. 4. Emphysema. ACT 112: Negative or not required by law. Electronically signed by: Manny Buck M.D. 04/27/2022 1:16 PM Neck CTA 04/27/22 12:[address] OF THE BRAIN; CT ANGIOGRAM OF THE BRAIN; CT ANGIOGRAM OF THE NECK CLINICAL HISTORY: Slurred speech. Neurological deficit. Stroke like symptoms. COMPARISON STUDY: CT of the brain dated 06/27/2017. MRI of the brain dated 05/28/2017. TECHNIQUE: Unenhanced axial CT scan of the brain is performed. Subsequently, following the IV administration of 117 of Optiray 320, CT angiogram of the head and neck was performed from the aortic arch to the vertex. Images are reviewed in the axial, sagittal, and coronal planes. 3-D MIPS images are created and assessed. IV contrast was administered without complication. All measurements were calculated based on NASCET criteria. A dose lowering technique was utilize d adhering to the principles of ALARA. CT DOSE: 1079.83 mGy.cm FINDINGS: Brain parenchyma: The brain parenchyma is normal in appearance. There is no hemorrhage, mass effect, or evidence of acute territorial ischemia by CT criteria. There is no evidence of enhancing mass lesion on the angiogram phase images. The ventricles, sulci, and cisterns are normal in configuration. Ramon- white matter differentiation is preserved. No extra-axial fluid collection is seen. Thoracic aorta: Visualized portions of the thoracic aorta are normal in caliber. The aortic arch demonstrates standard 3-vessel anatomy. Right carotid arterial system: The right common carotid artery is widely patent, as are the right internal and external carotid arteries. Mild calcified plaque is seen in the carotid bulb. Left carotid arterial system: The left common carotid artery is widely patent, as are the left internal and external carotid arteries. Calcified plaque is noted in the carotid bulb. Vertebral arteries: The vertebral arteries are widely patent bilaterally noting mild right-sided dominance. Subclavian arteries: Widely patent bilaterally. Intracranial vasculature: The internal carotid arteries are patent at the skull base, as are the anterior and middle cerebral arteries bilaterally. The vertebrobasilar system and posterior cerebral arteries are widely patent. The right vertebral artery is dominant. There is no aneurysm, high-grade stenosis, or focal vessel cut off seen throughout the intracranial circulation. Jugular veins: Patent bilaterally. Dural sinuses: Patent. Lung apices: Emphysematous change is noted. Upper lobe lung parenchyma is otherwise clear as imaged. Soft tissues: The visualized pharyngeal soft tissues are normal in appearance noting angiographic phase technique. The oropharyngeal airway appears widely patent. The thyroid gland is mildly enlarged and heterogeneous. The salivary glands are normal in appearance. No cervical lymphadenopathy is seen. Skeletal structures: The calvarium appears intact. The cervical spine is maintained noting mild spondylosis. No lytic or blastic lesion is seen. Orbits: The bony orbits are intact. Orbital contents are normal as visualized. Sinuses and mastoids: The paranasal sinuses are clear. The mastoid air cells are well pneumatized. IMPRESSION: 1. There is no hemorrhage, mass effect, or evidence of acute territorial ischemia by CT criteria. 2. Unremarkable CT angiogram of the brain. 3. Unremarkable CT angiogram of the neck. 4. Emphysema. ACT 112: Negative or not required by law. Electronically signed by: Manny Buck M.D. 04/27/2022 1:16 PM Brain MRI 04/27/22 19:19 MR brain wo con HISTORY: 56 years-old Male RUE weakness acute strokelike symptoms with right upper extremity weakness COMPARISON: MRI cervical spine of same day, MRI brain 05/28/2017 TECHNIQUE: Multiplanar multisequence MRI of the brain was obtained without the use of IV contrast. 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 No restricted diffusion to suggest acute or subacute infarct. Midline structures are unremarkable. Megacisterna magna. The volume and signal of the brain parenchyma is within normal limits. No acute intracranial hemorrhage, midline shift, abnormal extra-axial collection, hydrocephalus or intracranial mass identified. Cerebral venous sinuses and major arterial flow voids appear patent. The orbits, skull and soft tissues are unremarkable. Trace mastoid effusions. Minimal mucosal thickening of the ethmoid air cells. IMPRESSION: No acute intracranial abnormality. ACT 112: Negative or not required by law. The above report was generated using voice recognition software. It may contain grammatical, syntax or spelling errors. Electronically signed by: King Hamm M.D. 04/28/2022 8:13 AM Cervical Spine MRI 04/27/22 19:20 MRI OF THE CERVICAL SPINE WITHOUT CONTRAST CLINICAL HISTORY: Left upper extremity weakness and pain. COMPARISON: None. TECHNIQUE: Utilizing a 1.5 Angie magnet and dedicated coil, multiplanar, multiecho imaging of the cervical spine was performed without IV contrast. FINDINGS: Alignment of the cervical spine is anatomic. Vertebral body heights are maintained. Sagittal T2 sequence is compromised by motion artifact. Cervical cord signal is within normal limits. There is no intracanalicular mass or fluid collection. Paravertebral soft tissues are unremarkable. Minimal multilevel degenerative changes within the cervical spine are present. C2-C3: The central canal and right neural foramen are patent. There is moderate narrowing of the left neural foramen due to uncovertebral hypertrophy. C3-C4: Central canal and neural foramen are patent. There is mild facet arthrosis. C4-C5: Central canal and left neural foramen are patent. There is mild right neural foraminal stenosis due to facet arthrosis. C5-C6: Central canal and neural foramen are patent. Moderate facet arthrosis. C6-C7: Central canal and neural foramen are patent. There is moderate facet arthrosis. C7-T1: Central canal and neural foramen are patent. IMPRESSION: 1. No acute process within the cervical spine MRI. 2. Exam compromised by motion artifact. However, cervical cord signal likely normal. 3. Minimal multilevel degenerative disc disease. Moderate facet arthrosis. No central canal stenosis. 4. Multilevel neural foraminal stenosis, as above. ACT 112: Negative or not required by law. Electronically signed by: Jem Wilkins M.D. 04/28/2022 9:45 AM Orbit X-Ray 04/27/22 19:43 BONY ORBITS 3 VIEWS CLINICAL HISTORY: MRI clearance. FINDINGS: 3 views of the bony orbits are compared to study dated 05/28/2017. There is no radiodense/metallic foreign body seen in the region of the bony orbits. The bony orbits are intact as imaged. The visualized paranasal sinuses and the mastoid air cells appear clear. The imaged calvarium appears intact. IMPRESSION: There is no radiodense/metallic foreign body seen in the region of the bony orbits. ACT 112: Negative or not required by law. Electronically signed by: Manny Buck M.D. 04/27/2022 8:34 PM
[2022-04-28] MEDS ORDERED: STROKE PATIENT DISCHARGE STA (16:23)
--- NOTE | 2022-04-28 16:28 | Discharge Summary ---
Date of Service April 28, 2022 Admission HPI Per Admitting Provider Patient is a 56-year-old male with a significant past medical history of coronary artery disease status post PTCI with AMY to the RCA recently, hypothyroidism, hyperlipidemia, tobacco abuse, JOHAN, and dysrhythmia. Patient has apparently had a previous history of TIA in the past as well. Per patient and recent documentation, the patient had presented to the [facility] on 03/30 with concerns for LEFT-sided chest pain and LEFT upper extremity weakness. He was evaluated and eventually underwent PTCI where he received a drug-eluting stent to his RCA. During that evaluation, neurology did evaluate the patient and there was concern about performing MRI secondary to recent stent placement. He reports that his symptoms had resolved at that point and he had been placed on Brilinta as well as aspirin which he continues to take. Patient was having pauses while admitted for his STEMI and had an outpatient loop recorder placed. There was concern for significant sleep apnea and he had some form of study performed and was placed on a home mask which he has been using. Patient has been transitioning his care to [facility] recently as he reports a "poor experience" at [facility] during his hospitalization. He recently followed with interventional cardiology and was actually at his electrophysiology appointment this morning when he informed them of his LEFT upper extremity weakness which has been ongoing since approximately 430 this morning. Patient states that this was similar to his prior histories of TIAs in the past. He states that his sensation has near completely resolved, but he does still have some residual weakness. He denies any facial droop or weakness but reports that he has been having some "twitching" of his face. He denies no weakness of his lower extremities. Patient also denies complaints of headaches, dizziness, lightheadedness, blurry vision, double vision, slurred speech, nausea, vomiting, chest pain, or palpitations. Principal Diagnosis Recurrent left upper extremity weakness with unclear etiology rule out stroke Discharge Exam VITAL SIGNS - Vital signs and nursing notes were reviewed. GENERAL - 56-year-old male appearing his stated age who is in no acute distress. Communicates well with provider and answers questions appropriately. HEAD - Normocephalic, Atraumatic. EYES - PERRL with EOMI bilaterally. Sclera anicteric. EARS - No deformities of external structures noted on gross examination bilaterally. NOSE - Midline and without cyanosis. No epistaxis or purulent drainage noted. MOUTH/OROPHARYNX - Without perioral cyanosis. Buccal mucosa pink and moist. NECK - Neck with FROM. Supple to palpation. No lymphadenopathy noted. No nuchal rigidity. LUNGS - Chest wall symmetric without accessory muscle use, intercostals retractions, or central cyanosis. Normal vesicular breath sounds CTA B/L. No wheezes, rales, or rhonchi appreciated. CARDIAC - RRR with S1/S2. No murmur, rubs, or gallops appreciated. ABDOMEN - Abdominal contour flat without pulsations or visible masses. BS normoactive all four quadrants. No tenderness, palpable masses, hepatosplenomegaly, or ascites noted. EXTREMITIES - No pretibial edema present. +3/5 radial and dorsalis pedis pulses palpated throughout. FROM with no tremors, fasciculations, or clonus noted on PROM throughout. +4/5 strength appreciated LEFT versus right of the upper extremities. +5/5 strength appreciated bilaterally of the lower extremities. NEUROLOGIC - Cranial nerves II through XII grossly intact. Sensory intact to light touch throughout. Patellar reflexes +2/4, Achilles reflexes present. Patient able to perform rapid alternating movements appropriately. Negative Drift. PSYCH - A&Ox3 and cooperates fully with examiner. Pt is very pleasant and interacts well with examiner. Discharge Data Allergies Allergy/AdvReac Type Severity Reaction Status Date / Time levothyroxine AdvReac Severe AGITATION Verified 04/27/22 15:32 Consultations 04/27/22 16:14 Consult Neurology Routine Ordered Studies 04/27/22 12:45 CT angio head w con Stat CT angio neck with con Stat CT head/brain wo con Stat 04/27/22 19:19 MRI Brain [MR brain wo con] Routine 04/27/22 19:20 MRI Cervical [MR cervical spine wo con] Routine Hospital Course (1) Stroke-like symptoms: 56-year-old male presenting with concerning symptoms for acute onset of LEFT upper extremity weakness in the setting of recent PTCI with drug-eluting stent placement. Patient requiring ongoing evaluation for stroke work-up. * MRI of the brain and MRI of the cervical spine unremarkable * Patient is with prior history of similar symptoms in the past and equated it to prior TIAs. * On exam, he has subjective slight weakness of the LEFT upper extremity versus right. Otherwise, his exam is unremarkable. * CT and CTA of the head and neck were otherwise unremarkable. * Would likely not gain added benefit with performing carotid duplex. * Patient is already on aspirin and Brilinta. We will continue for now. * Seen by neurology recommend outpatient nerve conduction velocity EMG in case of recurrence of symptoms * Appreciate neurology guidance on this interesting case. (2) Left arm weakness: * As above (3) Sinus pause: Over the course of admission and patient has few sinus pauses on the cardiac cath tech, the longest 1 was 5 seconds, patient was asymptomatic, patient has been followed by immigration attorney Dr. Teresa Heredia, patient was advised to follow-up with him. The patient has been taking bisoprolol low-dose 2.5 mg daily, patient advised to follow-up with his immigration attorney in this regard in 1 to 2 weeks (4) Chest pain: * Patient with recent STEMI who is status post PTCI with AMY to the RCA. * EKG without acute significant findings today. * Troponins remain negative. (5) Obstructive sleep apnea: * Sounds as though the patient's episodes of bradycardia have been related to sleep pattern and likely obstructive versus central sleep apnea. He certainly would warrant formal sleep evaluation in the outpatient setting. Will order BiPAP to be utilized while hospitalized. (6) Benign essential hypertension: * Continue home medications as prescribed (7) Coronary artery disease: * Continue ASCVD Rx per typical. (8) Hypothyroid: * Continue home levothyroxine. Total Time Total Time Spent Total Time Spent (In Minutes): 45 mins Discharge Plan Discharge Items Patient Disposition: Home - Self-Care Reason For Visit: TIA S/S Discharge Diagnosis: Possible TIA Activity: Resume your previous activity Lifting: Gradually increase as tolerated Bathing: No limitations Sexual Activity: When tolerated Driving/Machine Use: No limitations Non-emergency contact: [employer] and Neurologist Call non-emergency contact if: you have any medication questions Follow-up/Referrals: Yan Moore MD [Physician] - (you have sinus pauses on cardiac cath tech please follow with Dr Moore in one or two weeks) David Mott MD [Physician] - ( you might need EMG and nerve conduction study of left upper extremity, to evaluate for peripheral pathology, in case of recurrent symptoms.) Himanshu Cortez PA-C [Primary Care Provider] - Diet: Heart Healthy Addtl Attending Provider Instructions: Please follow with Dr Moore in one or two weeks you have sinus pauses on your cardiac cath tech Addtl Head Librarian Provider Instructions: you might need EMG and nerve conduction study of left upper extremity, to evaluate for peripheral pathology, in case of recurrent symptoms. Pending Studies at Discharge: No Stand-Alone Forms: My [facility] [employer], Smoking Cessation Medications and DC Order Prescriptions: Continued aspirin 81 mg tablet,delayed release (DR/EC) 81 mg PO DAILY atorvastatin 40 mg tablet 40 mg PO QPM bisoprolol fumarate 5 mg tablet 2.5 mg PO DAILY ramipril 2.5 mg capsule 2.5 mg PO DAILY ticagrelor 90 mg tablet 90 mg PO BID levothyroxine 112 mcg tablet 112 mcg PO DAILY Discharge Orders: Discharge Order (Routine); Ordered 04/28/22 Ordered By: Miller Garvin/Other Patient Handouts: Prediabetes, 5 Steps for Eating Healthier Admission Data Admit Date/Time: 04/27/22 16:12 Attending Provider: Miller Dougherty Admit Provider: Candido Edmonds Primary Care Provider: Himanshu Cortez Other Providers: David Mott Other Interventions: Discharge Summary Assessment (RN) Last Done: 04/28/22 15:28 Coding Level of Care Code HOSP INP/OBS DISCH >30 MIN Diagnoses Stroke-like symptoms R29.90 Left arm weakness R29.898 Sinus pause I45.5 Chest pain R07.9 Obstructive sleep apnea G47.33 Benign essential hypertension I10 Coronary artery disease I25.10 Hypothyroid E03.9
--- NOTE | 2022-04-29 10:39 | XCELERA ---
[id number] \\[id number]
== END 2022-04-28 17:22 | disposition home or self-care (01) | DRG 69 ==
LOC: ED 12:40 → SUATTDRO 16:12 → EDINP 16:12 → 2E 18:56

== ENCOUNTER 2024-09-25 10:45 | Inpatient (IN) ==
--- NOTE | 2024-09-25 11:04 | Emergency Department Note ---
Impression & Plan Precordial chest pain, Facial droop, Stroke-like symptoms ED Provider Note NAME: BEATRIZ WEBB AGE: 58 SEX: M : 1965 ARRIVES VIA: Walk-In INFORMANT: [Patient] ED PROVIDER(S): [Manny Sal MD] Patient first seen by me at 1050 CHIEF COMPLAINT: Chest pain, possible stroke HISTORY OF PRESENT ILLNESS: Patient is a 58-year-old male with a history of NV and coronary stent. 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 He presents with 3 and half hours of left chest pain radiating to his neck and arm. The pain began at work. He states the pain is worse if he coughs. The patient states that about an hour and a half ago, at 9:30 AM, he began noticing a slight headache and some left facial droop and his left arm felt numb and weak. The patient does not believe his legs are affected. He denies recent fever, chills, cough. No trauma. The patient states that in the past, he has had a hemiplegic migraine that presented with a facial droop and arm numbness. He has no history of CVA. He takes baby aspirin, no other blood thinning agents. PMHx/PSHx/Social Hx: See Below PHYSICAL EXAM: GENERAL: Patient is in no acute distress. HEENT: No acute trauma, normocephalic atraumatic, mucous membranes moist, no nasal congestion. His left eye is closed and he has a very difficult time opening the left eye. NECK: No stridor, no adenopathy, no meningismus, trachea is midline. LUNGS: Clear to auscultation bilaterally, no wheeze, no rhonchi, breath sounds equal. Chest: Tender to the left anterior chest wall. HEART: Without murmurs gallops or rubs, regular rate and rhythm. ABDOMEN: Soft, nontender, no peritonitis. EXTREMITIES: No cyanosis, full range of motion of all the joints without pain or difficulty. NEUROLOGIC: Oriented x 3. He has a left facial droop and his left eyes closed. No speech slur really. He has a difficult time raising the left arm off the bed, the left leg appears unaffected. Excellent historian. SKIN: No jaundice, no diaphoresis. DIFFERENTIAL DIAGNOSIS: Stroke, hemiplegic migraine, NV, pneumothorax, pneumonia, musculoskeletal pain, among others. EMERGENCY DEPARTMENT PROCEDURES: MEDICAL DECISION MAKING: There is no leukocytosis or concerning anemia. There is a normal platelet count. No coagulopathy. No renal failure or significant electrolyte abnormality. No concerning liver enzyme elevation. ECG shows a sinus rhythm, no ST elevation. Cardiac enzyme testing x 1 is not consistent with acute cardiac injury. Chest x-ray shows some potential parenchymal congestion, there was no pneumothorax. Brain CT showed no acute bleed or mass effect. CT angio of the head and neck were performed, there was no stenosis or clot. On exam, the patient had a left facial droop that involved the left eye. He was weak in the left upper extremity. He had reproducible left-sided chest pain on palpation. Given the strokelike findings, a stroke alert was called. The patient was seen by the stroke neurology team from [facility]. They did talk about using TNK but this was eventually refused by the patient. The patient had already taken oral aspirin prior to arrival, no additional aspirin was given. He eventually received IV saline 500 cc. He was given IV Compazine, IV Benadryl and IV Tylenol. Admission to the hospital for further stroke workup was felt warranted. The patient can also have the cardiac troponin trended during this hospital stay. In short, the patient's presentation is twofold. He has precordial chest pain which I suspect is musculoskeletal given the reproducibility. The strokelike symptoms may in fact be secondary to a hemiplegic migraine as he has had similar hemiplegic migraine presentations in the past. Further stroke up in the hospital was felt warranted. TNK was refused by the patient. I did speak with case management, the on-call hospitalist was consulted. Prior/Outside records/notes reviewed: None ECG per my interpretation: Indication was chest pain. The ECG shows a normal sinus rhythm with a rate of 78. There is no ST elevation, no PVCs. The QTc is 421. There is poor R wave progression. Continuous Cardiac Monitoring per my interpretation: An order was placed for continuous cardiac monitoring. The monitor shows a rate of 65 with normal sinus rhythm. Imaging/x-ray results per my interpretation: Chest x-ray shows some congestion to the lungs consistent with potential parenchymal congestion versus changes from body habitus. Chronic Medical/Social conditions affecting care: History of coronary stenting and hemiplegic migraine. Care/Management discussed with: Stroke [facility] neurology-Dr. Senior. Case management and the on-call hospitalist. Level of care consideration(s): After review of the information above and other included data: --I believe the patient requires escalation of care to admission Critical Care Note: I have personally spent 52 minutes of critical care time in the direct management of this patient. This includes bedside care, interpretation of diagnostic studies, and testing, discussion with consultants, patient, and family members, and other required patient management activities. This 52 minutes is in excess of all separately billable procedures. DISPOSITION: Admission Past Med/Surg History Problem List (Updated 09/25/24 @ 16:07 by Manny Sal MD) Stroke-like symptoms (Acute) Facial droop (Acute) Precordial chest pain (Acute) Left-sided weakness Nocturnal hypoxemia Severe obstructive sleep apnea History of loop recorder Sinus pause Tachycardia Benign essential hypertension Bradycardia Coronary artery disease Chest pain (Acute) Tobacco abuse Dyslipidemia PAC (premature atrial contraction) Hypothyroid Palpitations Vertigo (Chronic) Hematuria (Acute) Medical History Left arm weakness Chest pain Asthma Surgical History S/P ureteral stent placement Family History (Updated 09/25/24 @ 14:44 by Juanita Linder MD) Mother COPD (chronic obstructive pulmonary disease) Father Hypertension Son Kidney disease Sister Diabetes Social History Smoking Status: Current every day smoker Tobacco Type: Cigarettes Cigarettes Per Day: 15-20; Hx Alcohol Use: Yes Hx Substance Use: No Preferred Language: Cameroonian Communication Ability: Effective Manager Alliance Required: No Beliefs That Will Affect Care: None Current Living Situation: Spouse Feels Safe at Home: Yes Assistive Devices: CPAP Allergies Allergies Allergy/AdvReac Type Severity Reaction Status Date / Time levothyroxine sodium Allergy Intermediate Hives Verified 09/25/24 14:42 [From Synthroid] Home Meds Home Medications Medication Instructions Recorded Confirmed aspirin 81 mg tablet,delayed 81 mg PO DAILY 04/13/22 09/25/24 release Previous Rx's Medication Instructions Recorded albuterol sulfate 90 mcg/actuation 2 inh inhalation QID PRN shortness 12/29/23 aerosol inhaler of breath or wheezing #8.5 grams CPAP Machine #1 ea 06/20/24 atenolol 25 mg tablet 25 mg PO DAILY #90 tabs 08/01/24 furosemide 20 mg tablet (Lasix) 20 mg PO DAILY #90 tabs 08/01/24 levothyroxine 150 mcg tablet 150 mcg PO DAILY #60 tabs 08/07/24 (Euthyrox) Results & Data (ED) Vital Signs Vital Signs - 24 hr 09/25/24 10:50 09/25/24 11:18 09/25/24 11:30 Temperature 36.8 C Temperature Source Oral Pulse Rate 65 Pulse Rate [Apical] 69 76 Pulse Rhythm Regular Pulse Rhythm [Apical] Pulse Strength Normal Respiratory Rate 20 24 22 Respiratory Effort / Characteristics Non-Labored Spontaneous Respiratory Depth Normal Normal Respiratory Pattern Regular Blood Pressure 145/72 H Blood Pressure [Right Arm] 129/77 143/78 H Blood Pressure Mean 96 Blood Pressure Mean [Right Arm] 94 99 Blood Pressure Position Sitting Blood Pressure Position [Right Arm] Pulse Oximetry 98 90 95 Oxygen Delivery Method Room Air Room Air Room Air Sepsis Recent Fever Within 48 Hours No Sepsis New/Unexplained Change in Mental Status No Sepsis Action Taken by Nursing No Action Required 09/25/24 12:00 09/25/24 13:00 Temperature Temperature Source Pulse Rate Pulse Rate [Apical] 63 58 L Pulse Rhythm Pulse Rhythm [Apical] Regular Pulse Strength Respiratory Rate 17 17 Respiratory Effort / Characteristics Non-Labored Spontaneous Non-Labored Spontaneous Respiratory Depth Normal Normal Respiratory Pattern Blood Pressure Blood Pressure [Right Arm] 131/86 127/77 Blood Pressure Mean Blood Pressure Mean [Right Arm] 101 93 Blood Pressure Position Blood Pressure Position [Right Arm] Sitting Pulse Oximetry 94 92 Oxygen Delivery Method Room Air Room Air Sepsis Recent Fever Within 48 Hours Sepsis New/Unexplained Change in Mental Status Sepsis Action Taken by Detention Medications Current Medication List: was personally reviewed by me Laboratory Data Attestation: I reviewed the patient's lab results. 09/25/24 10:55 09/25/24 10:55 Lab Results 09/25/24 09/25/24 Range/Units 10:55 10:59 WBC 9.87 (4.8-10.8) K/ul RBC 4.64 L (4.70-6.10) M/uL Hgb 14.6 (14.0-18.0) g/dl POC Hgb 14.6 (14.0-18.0) g/dl Hct 42.1 (42.0-52.0) % POC Hct 43 (42-52) % MCV 90.7 (80.0-100.0) fL MCH 31.5 (25.0-34.0) pg MCHC 34.7 (32.0-36.0) g/dL RDW Std Deviation 47.6 H (36.4-46.3) fL RDW Coeff of Twin 14.3 (11.5-14.5) % Plt Count 294 (130-400) K/uL MPV 10.6 (9.4-12.4) fL Immature Gran % (Auto) 0.5 % Neut % (Auto) 52.5 % Lymph % (Auto) 34.1 % Alfalfa % (Auto) 8.5 % Eos % (Auto) 3.5 % Baso % (Auto) 0.9 % Neut # (Auto) 5.17 (1.40-6.50) K/uL Lymph # (Auto) 3.37 (1.20-3.40) K/uL Alfalfa # (Auto) 0.84 H (0.11-0.59) K/uL Eos # (Auto) 0.35 (0.00-0.50) K/uL Baso # (Auto) 0.09 (0.00-0.20) K/uL Immature Gran # (Auto) 0.05 (0.01-0.20) K/uL PT 10.2 (9.0-12.0) Seconds INR 0.9 (0.9-1.1) APTT 28 (21-31) Seconds PTT Ratio 1.0 POC Sodium 141 (135-144) mmol/L Sodium 139 (136-145) mmol/L POC Potassium 4.1 (3.3-5.0) mmol/L Potassium 4.1 (3.5-5.1) mmol/L POC Chloride 108 (101-112) mmol/L Chloride 108 H (98-107) mmol/L Carbon Dioxide 25 (21-32) mmol/L POC Total CO2 21 L (24-31) mmol/L Anion Gap 6 (3-11) POC Anion Gap 17.0 (16-25) mmol/L POC BUN 13 (7-18) mg/dl BUN 15 (6-23) mg/dl Creatinine 0.73 (0.6-1.4) mg/dl POC Creatinine 0.7 (0.6-1.3) mg/dl Est Cr Clr Drug Dosing 125.4 ml/min eGFR 105.46 BUN/Creatinine Ratio 20.5 H (10-20) Glucose 98 (70-99(Fasting)) mg/dl POC Glucose (other) 100 H (70-99) mg/dl Calcium 9.0 (8.6-10.3) mg/dl POC Ioniz Calcium Gretchen 1.16 (1.12-1.32) mmol/l Magnesium 2.1 (1.7-2.4) mg/dl Total Bilirubin 0.4 (0.2-1.0) mg/dl AST 14 (13-39) U/L ALT 12 (7-52) U/L Alkaline Phosphatase 68 (34-104) U/L Troponin I High Sens 5.4 (0-20) pg/ml Total Protein 7.9 (6.0-8.3) gm/dl Albumin 3.7 (3.4-5.0) gm/dl Globulin 4.2 H (2.5-4.0) gm/dl Albumin/Globulin Ratio 0.9 (0.9-2) TSH 7.785 H (0.300-4.500) uIu/ml Administered Medications Discontinued Medications Aspirin (Aspirin Chew 324 Mg) 324 mg PO NOW STA Stop: 09/25/24 11:45 Last Admin: 09/25/24 12:04 Dose: Not Given Documented By: MADHURI Diphenhydramine HCl (Diphenhydramine 50 Mg/Ml Vial) 12.5 mg IV NOW STA Stop: 09/25/24 12:07 Last Admin: 09/25/24 12:23 Dose: 12.5 mg Documented By: MADHURI Acetaminophen (Ofirmev) 1,000 mg in 100 mls @ 400 mls/hr IV NOW STA Stop: 09/25/24 11:14 Last Infusion: 09/25/24 12:15 Dose: Infused Documented By: Admin: 09/25/24 11:13 Dose: 400 mls/hr Documented By: PRATIK Sodium Chloride (Nss) 500 mls @ 999 mls/hr IV .Q31M ONE Stop: 09/25/24 11:30 Last Infusion: 09/25/24 12:38 Dose: Infused Documented By: Admin: 09/25/24 11:13 Dose: 999 mls/hr Documented By: PRATIK Prochlorperazine 5 mg/ Syringe 9 mls @ 5 mls/min IV ONE ONE Stop: 09/25/24 12:07 Last Admin: 09/25/24 12:23 Dose: 5 mls/min Documented By: MADHURI Ioversol (Optiray 320 125ml) 118 ml IV ONCE ONE Stop: 09/25/24 11:10 Last Admin: 09/25/24 11:09 Dose: 118 ml Documented By: AKUA Morphine Sulfate (Morphine Sulfate 4 Mg/Ml 1 Ml Carp\Vial) 4 mg IV NOW STA Stop: 09/25/24 12:07 Last Admin: 09/25/24 12:31 Dose: Not Given Documented By: MADHURI Ondansetron HCl (Ondansetron Inj 2 Mg/Ml 2 Ml Vial) 4 mg IV NOW STA Stop: 09/25/24 12:07 Last Admin: 09/25/24 12:32 Dose: Not Given Documented By: MADHURI Imaging Data Radiologist's Impression: Chest X-Ray 09/25/24 11:00 XR chest 1V portable CLINICAL HISTORY: neuro deficit, acute stroke suspected COMPARISON STUDY: 12/29/2023 FINDINGS: Heart size and pulmonary vasculature are normal. There are reticular and patchy opacities in the lung bases. No pleural effusion or pneumothorax. IMPRESSION: Atelectasis versus pneumonia in the lung bases. ACT 112: Negative or not required by law. Electronically signed by: Alvin Whitfield M.D. 09/25/2024 11:[address] 09/25/24 11:00 CT head/brain wo con CLINICAL HISTORY: 58 years-old Male with neuro deficit, acute stroke suspected. Acute stroke like symptoms TECHNIQUE: Multiple axial CT images of the head were obtained without contrast. A dose lowering technique was utilized adhering to the principles of ALARA. COMPARISON: CTA head of same day, head CT 04/27/2022 FINDINGS: No acute intracranial hemorrhage, midline shift, intracranial mass, hydrocephalus, territorial ischemia or abnormal extra-axial collection. Involutional changes with suggestion of mild chronic microvascular ischemic disease. Masoud cisterna magna. The calvarium is intact. The paranasal sinuses, mastoid air cells, and middle ear cavities are clear. IMPRESSION: No acute intracranial abnormality. ACT 112: Negative or not required by law. The above report was generated using voice recognition software. It may contain grammatical, syntax or spelling errors. Electronically signed by: King Hamm M.D. 09/25/2024 11:23 AM Head CTA 09/25/24 11:00 CTA ANGIOGRAPHY OF THE HEAD CLINICAL HISTORY: neuro deficit, acute stroke suspected COMPARISON STUDY: Head CT, CTA of the head and MRI the brain April 27, 2022. TECHNIQUE: Helical axial images of the head were obtained following uneventful intravenous administration of 118 cc of Optiray. Sagittal and coronal reconstructions were viewed as well as maximal intensity projections on an independent 3-D workstation. Automated exposure control was utilized for the study. A dose lowering technique was utilized adhering to the principles of ALARA. FINDINGS: Please note that the head CT will be reported separately. No acute intracranial hemorrhage, midline shift or mass effect is present. Ventricular system is unremarkable. Basal cisterns are patent. There are no extra axial collections. The bilateral M1, M2, A1 and A2 segments are patent. There is mild atherosclerotic plaque within the cavernous carotids without significant stenosis. Posterior circulation is intact. There is no intracranial aneurysm, vessel cut off or dissection. IMPRESSION: No large vessel occlusion. No intracranial aneurysm. ACT 112: Negative or not required by law. Electronically signed by: Jem Wilkins M.D. 09/25/2024 11:24 AM Neck CTA 09/25/24 11:00 CT angio neck with con CLINICAL HISTORY: neuro deficit, acute stroke suspected. TECHNIQUE: Following the IV administration of 118 of Optiray, CT angiogram of the neck was performed from the aortic arch to the skull base. Images are reviewed in the axial, sagittal, and coronal planes. 3-D MIPS images are created and assessed. IV contrast was administered without complication. All measurements were calculated based on NASCET criteria. A dose lowering technique was utilized adhering to the principles of ALARA. CT DOSE: 1163.81 mGy.cm COMPARISON STUDY: 04/27/2022 FINDINGS: There are carotid bulb calcifications. There is spray artifact distally at the internal carotid arteries. No significant narrowing or occlusion seen at the common or internal carotid arteries bilaterally. No significant narrowing or occlusion seen at the vertebral arteries bilaterally. There is a stable mildly enlarged right paratracheal lymph node. IMPRESSION: No significant arterial narrowing or occlusion seen at the neck. ACT 112: Negative or not required by law. The above report was generated using voice recognition software. It may contain grammatical, syntax or spelling errors. Electronically signed by: Alvin Whitfield M.D. 09/25/2024 11:27 AM Discharge Plan Visit Data Chief Complaint: Stroke/CVA Symptoms Stated Complaint: CHEST PAIN INTO LEFT ARM,FACE DROOPING ED Provider: Manny Sal Discharge Problem: Precordial chest pain, Facial droop, Stroke-like symptoms Patient Disposition: Admitted As Inpatient Condition: Fair Forms Stand Alone Forms: My [facility] [employer] Prescriptions Prescriptions: No Action aspirin 81 mg tablet,delayed release (DR/EC) 81 mg PO DAILY Rx Instructions: Unable to verify OTC meds at this date/time. atenolol 25 mg tablet 25 mg PO DAILY Qty: 90 3RF furosemide [Lasix] 20 mg tablet 20 mg PO DAILY Qty: 90 3RF (DME) CPAP Machine Misc See Rx Instructions .Route Qty: 1 0RF Rx Instructions: Auto CPAP 5-20 cm water pressure with heated humidificaiton, tubing, and supplies and with nasal pillows. ARI: 99+ years. albuterol sulfate 90 mcg/actuation HFA aerosol inhaler 2 inh inhalation QID PRN (Reason: shortness of breath or wheezing) Qty: 8.5 0RF levothyroxine [Euthyrox] 150 mcg tablet 150 mcg PO DAILY Qty: 60 3RF Rx Instructions: Per pharmacy, this is NOT showing as discontinued. However, it is listed on pt's allergy list as well. Referrals Referrals: Himanshu Cortez PA-C [Primary Care Provider] -
[2024-09-25] MEDS: OPTIRAY 320 125ml IV ONE (11:09)
[2024-09-25 11:13] LABS: Hematocrit (blood only) 42.1 % (42.0-52.0); Hemoglobin 14.6 g/dl (14.0-18.0); Immature Granulocytes # (auto) 0.05 K/uL (0.01-0.20); Immature Granulocytes % (auto) 0.5 %; Mean Corpuscular Hemoglobin 31.5 pg (25.0-34.0); Mean Corpuscular Volume 90.7 fL (80.0-100.0); Platelet Count 294 K/uL (130-400); RDW Standard Deviation 47.6 fL (36.4-46.3); Red Blood Count 4.64 M/uL (4.70-6.10); White Blood Count 9.87 K/ul (4.8-10.8)
[2024-09-25] MEDS: ACETAMINOPHEN 1,000 MG/100 ML VIAL IV STA (11:13)
[2024-09-25] MEDS: SODIUM CHLORIDE 0.9% 500 ML IV ONE (11:13)
--- NOTE | 2024-09-25 11:25 | CT Scan Report ---
CTA ANGIOGRAPHY OF THE HEAD CLINICAL HISTORY: neuro deficit, acute stroke suspected COMPARISON STUDY: Head CT, CTA of the head and MRI the brain April 27, 2022. TECHNIQUE: Helical axial images of the head were obtained following uneventful intravenous administr ation of 118 cc of Optiray. Sagittal and coronal reconstructions were viewed as well as maximal inten sity projections on an independent 3-D workstation. Automated exposure control was utilized for the study. A dose lowering technique was utilized adhering to the principles of ALARA. FINDINGS: Please note that the head CT will be reported separately. No acute intracranial hemorrhage, midline shift or mass effect is present. Ventricular system is unremarkable. Basal cisterns are mariano nt. There are no extra axial collections. The bilateral M1, M2, A1 and A2 segments are patent. There is mild atherosclerotic plaque within the cavernous carotids without significant stenosis. Posterior circulation is intact. There is no intracranial aneurysm, vessel cut off or dissection. IMPRESSION: No large vessel occlusion. No intracranial aneurysm. ACT 112: Negative or not required by law. Electronically signed by: Jem Wilkins M.D. 09/25/2024 11:24 AM
--- NOTE | 2024-09-25 11:25 | CT Scan Report ---
CT head/brain wo con CLINICAL HISTORY: 58 years-old Male with neuro deficit, acute stroke suspected. Acute stroke like sy mptoms TECHNIQUE: Multiple axial CT images of the head were obtained without contrast. A dose lowering tech nique was utilized adhering to the principles of ALARA. COMPARISON: CTA head of same day, head CT 04/27/2022 FINDINGS: No acute intracranial hemorrhage, midline shift, intracranial mass, hydrocephalus, territorial ischem ia or abnormal extra-axial collection. Involutional changes with suggestion of mild chronic microvasc ular ischemic disease. Masoud cisterna magna. The calvarium is intact. The paranasal sinuses, mastoid air cells, and middle ear cavities are clear . IMPRESSION: No acute intracranial abnormality. ACT 112: Negative or not required by law. The above report was generated using voice recognition software. It may contain grammatical, syntax o r spelling errors. Electronically signed by: King Hamm M.D. 09/25/2024 11:23 AM
--- NOTE | 2024-09-25 11:28 | CT Scan Report ---
CT angio neck with con CLINICAL HISTORY: neuro deficit, acute stroke suspected. TECHNIQUE: Following the IV administration of 118 of Optiray, CT angiogram of the neck was performed from the aortic arch to the skull base. Images are reviewed in the axial, sagittal, and coronal plane s. 3-D MIPS images are created and assessed. IV contrast was administered without complication. All m easurements were calculated based on NASCET criteria. A dose lowering technique was utilized adherin g to the principles of ALARA. CT DOSE: 1163.81 mGy.cm COMPARISON STUDY: 04/27/2022 FINDINGS: There are carotid bulb calcifications. There is spray artifact distally at the internal car otid arteries. No significant narrowing or occlusion seen at the common or internal carotid arteries bilaterally. No significant narrowing or occlusion seen at the vertebral arteries bilaterally. There is a stable mildly enlarged right paratracheal lymph node. IMPRESSION: No significant arterial narrowing or occlusion seen at the neck. ACT 112: Negative or not required by law. The above report was generated using voice recognition software. It may contain grammatical, syntax o r spelling errors. Electronically signed by: Alvin Whitfield M.D. 09/25/2024 11:27 AM
--- NOTE | 2024-09-25 11:28 | XRay Report ---
XR chest 1V portable CLINICAL HISTORY: neuro deficit, acute stroke suspected COMPARISON STUDY: 12/29/2023 FINDINGS: Heart size and pulmonary vasculature are normal. There are reticular and patchy opacities i n the lung bases. No pleural effusion or pneumothorax. IMPRESSION: Atelectasis versus pneumonia in the lung bases. ACT 112: Negative or not required by law. Electronically signed by: Alvin Whitfield M.D. 09/25/2024 11:27 AM
[2024-09-25 11:31] LABS: Alanine Aminotransferase 12.0 U/L (7-52); Albumin Globulin Ratio 0.9 (0.9-2); Alkaline Phosphatase 68.0 U/L (34-104); Anion Gap 6.0 (3-11); Bilirubin,Total 0.4 mg/dl (0.2-1.0); Blood Urea Nitrogen 15.0 mg/dl (6-23); Calcium 9.0 mg/dl (8.6-10.3); Carbon Dioxide 25.0 mmol/L (21-32); Chloride 108.0 mmol/L (98-107); Creatinine Clr Calc Pharmacy 125.4 ml/min; Globulin 4.2 gm/dl (2.5-4.0); Glucose 98.0 mg/dl (70-99(Fasting)); Magnesium 2.1 mg/dl (1.7-2.4); Potassium 4.1 mmol/L (3.5-5.1); Sodium 139.0 mmol/L (136-145); Total Protein 7.9 gm/dl (6.0-8.3)
[2024-09-25 11:47] LABS: INR 0.9 (0.9-1.1); Partial Thromboplastin Time 28 Seconds (21-31); Prothrombin Time 10.2 Seconds (9.0-12.0)
[2024-09-25] MEDS: ASPIRIN CHEW 324 MG PO STA (12:04)
[2024-09-25] MEDS: PROCHLORPERAZINE 5 MG in SYRINGE 8 ML IV ONE (12:23)
[2024-09-25] MEDS: diphenhydrAMINE 50 MG/ML VIAL IV STA (12:23)
[2024-09-25] MEDS: MoRPHine SULFATE 4 MG/ML 1 ML CARP\\VIAL IV STA (12:31)
[2024-09-25] MEDS: ONDANSETRON INJ 2 MG/ML 2 ML VIAL IV STA (12:32)
--- NOTE | 2024-09-25 13:33 | History & Physical Report ---
Date of Service September 25, 2024 Assessment & Plan (1) Left-sided weakness: (2) Chest pain: (3) Coronary artery disease: Plan This patient is a 58-year-old male with a history of HTN, CAD s/p inferior HI and RCA stent, JOHAN, nocturnal bradycardia, NSVT, HLD, hypothyroidism and several evaluations for TIA in the past, current smoker, who presents to the ER with acute onset of left-sided chest pain radiating to the neck and left upper extremity followed by left facial droop and numbness and left upper extremity heaviness and weakness. He then developed a left sided mild headache 3/10 in severity along with blurry vision. He denies nausea/vomiting or photophobia/phonophobia. His symptoms were ongoing for about 2 and half hours prior to arrival in the ED. He reports that the symptoms are very similar to the way he presented in the past for TIA workups which were all found to be negative both here and at outside hospitals. A CT of the head, and CTA of the head and neck were negative in the ED. CXR showed atelectasis versus pneumonia in the bases, and ECG was without ischemic changes, and troponin was negative. He had a telestroke neurology consult who did think this was probably a hemiplegic migraine given similar presentations in the past that resolved spontaneously, but could not rule out stroke and recommended TNKase. The patient declined TNKase at this time. Of note, a recent TSH 2 months prior was quite elevated at 131. The patient was given a migraine cocktail with Compazine, Benadryl, and IV morphine and had significant improvement in his symptoms by the time I saw him at admission. The patient will be admitted for stroke workup. #Left-sided weakness/left-sided facial droop/headache- Focal neurological symptoms on left side seem to be resolving with treatment of migraine. This has happened several times in the past-question if complex/hemiplegic migraine. He certainly does also have risk factors for TIA/CVA to include HTN, smoking. His TSH was significantly elevated in July but is now improving with an increased dose of levothyroxine. CTA head and neck negative. Previous echo with bubble study showed an ASA but not good resolution for PFO. He previously had a loop recorder in which never recorded any occult atrial fibrillation/flutter and has since been removed - Admit to medical floor with telemetry for arrhythmia monitoring - Consult neurology for further opinion on whether he needs prophylaxis for hemiplegic migraine? - If symptoms recur, could give more Compazine and Benadryl which helped previously in addition to Tylenol - Continue aspirin from home - He is intolerant of all/most statins and does not want to take any of them- previously on Repatha but needs to have this refilled by PCP as an outpatient - Check lipid panel and HgbA1c in the a.m. - Neurochecks, stroke scale - Echo with bubble study - PT/OT/speech therapy consults appreciated - Counseled on smoking cessation #Chest pain/CAD s/p inferior HI and RCA stent-chest pain seems MSK in nature as he is tender to palpation and it changes with position. ECG negative, troponin negative. - Trend 1 more serial troponin - Monitor on telemetry - Continue aspirin, atenolol - Resume Repatha as an outpatient #Current smoker-back up to smoking 3/4 to 1 pack/day for many years - Counseled on cessation - Start nicotine 21 mg transdermal patch daily #HLD/HTN-BPs are controlled - Continue home atenolol, Lasix #JOHAN on CPAP-continue CPAP #Hypothyroidism-TSH elevated at 131 in July/2024 and levothyroxine dose increased to 150 mcg daily. - Repeat TSH here now down to 7 - Continue levothyroxine 150 mcg daily - Needs follow-up with PCP-he has not seen his PCP in quite some time DVT prophylaxis-SCDs, Lovenox SQ Disposition-admit to PCU History of Present Illness Chief Complaint: Left-sided weakness, chest pain Primary Care Provider: Himanshu Cortez PA-C This patient is a 58-year-old male with a history of HTN, CAD s/p inferior HI and RCA stent, JOHAN, nocturnal bradycardia, NSVT, HLD, hypothyroidism and several evaluations for TIA in the past, current smoker, who presents to the ER with a cute onset of left-sided chest pain radiating to the neck and left upper extremity followed by left facial droop and numbness and left upper extremity heaviness and weakness. He then developed a left sided mild headache 3/10 in severity along with blurry vision. He denies nausea/vomiting or photophobia/phonophobia. His symptoms were ongoing for about 2 and half hours prior to arrival in the ED. He reports that the symptoms are very similar to the way he presented in the past for TIA workups which were all found to be negative both here and at outside hospitals. A CT of the head, and CTA of the head and neck were negative in the ED. CXR showed atelectasis versus pneumonia in the bases, and ECG was without ischemic changes, and troponin was negative. He had a telestroke neurology consult who did think this was probably a hemiplegic migraine given similar presentations in the past that resolved spontaneously, but could not rule out stroke and recommended TNKase. The patient declined TNKase at this time. Of note, a recent TSH 2 months prior was quite elevated at 131. The patient was given a migraine cocktail with Compazine, Benadryl, and IV morphine and had significant improvement in his symptoms by the time I saw him at admission. The patient will be admitted for stroke workup. Allergies Allergy/AdvReac Type Severity Reaction Status Date / Time levothyroxine sodium Allergy Intermediate Hives Verified 09/25/24 14:42 [From Synthroid] Home Medications Medication Instructions Recorded Confirmed Type aspirin 81 mg tablet,delayed 81 mg PO DAILY 04/13/22 09/25/24 History release albuterol sulfate 90 mcg/actuation 2 inh inhalation QID PRN shortness 12/29/23 09/25/24 Rx aerosol inhaler of breath or wheezing #8.5 grams CPAP Machine #1 ea 06/20/24 08/01/24 Rx atenolol 25 mg tablet 25 mg PO DAILY #90 tabs 08/01/24 09/25/24 Rx furosemide 20 mg tablet (Lasix) 20 mg PO DAILY #90 tabs 08/01/24 09/25/24 Rx levothyroxine 150 mcg tablet 150 mcg PO DAILY #60 tabs 08/07/24 09/25/24 Rx (Euthyrox) Past Med/Surg History Problem List (Updated 09/25/24 @ 14:49 by Juanita Linder MD) Left-sided weakness Nocturnal hypoxemia Severe obstructive sleep apnea History of loop recorder Sinus pause Tachycardia Benign essential hypertension Bradycardia Coronary artery disease Chest pain (Acute) Tobacco abuse Dyslipidemia PAC (premature atrial contraction) Hypothyroid Palpitations Vertigo (Chronic) Hematuria (Acute) Medical History Left arm weakness Chest pain Asthma Surgical History S/P ureteral stent placement Family History (Updated 09/25/24 @ 14:44 by Juanita Linder MD) Mother COPD (chronic obstructive pulmonary disease) Father Hypertension Son Kidney disease Sister Diabetes Social History (Updated 09/25/24 @ 14:45 by Juanita Linder MD) Smoking Status: Current every day smoker Tobacco Type: Cigarettes Cigarettes Per Day: 15-20; Hx Alcohol Use: Yes Hx Substance Use: No Preferred Language: Divehi Communication Ability: Effective Copy Center Specialist Required: No Beliefs That Will Affect Care: None Current Living Situation: Spouse Feels Safe at Home: Yes Assistive Devices: CPAP Review of Systems Review of Systems: All systems reviewed & are unremarkable except as noted in HPI & below Physical Exam Constitutional: WD/WN, vitals as above Eyes: PERRL, conjunctivae normal, anicteric sclerae ENMT: external ear and nose normal, oropharynx normal Neck: trachea midline, no thyromegaly Respiratory: normal respiratory effort, lungs clear to auscultation Cardiovascular: RRR, no murmur, no edema Chest (Breasts): Chest: normal inspection of chest Gastrointestinal (Abdomen): normal bowel sounds, soft, nontender, no hepatosplenomegaly Musculoskeletal: Extremities: extremities normal to inspection; no cyanosis and no clubbing Positive tenderness to palpation over left anterior chest wall Pain in chest relieved with raising arm into the air Skin: no rashes, warm and dry Neurologic: CN's II-XI intact bilaterally (Except slight decrease sensation to light touch left V1 and V2), moves all extremities and awake; no focal motor deficits and not confused Speech / Cognition: normal speech and normal cognition Motor/Sensory: no sensory deficit Psychiatric: A+Ox3, euthymic affect Lymphatic: no lymphedema Results & Data Results & Data Vital Signs (Past 12 Hours) Vital Signs Temp Pulse Pulse Resp BP BP Pulse Ox 09/25/24 12:00 63 17 131/86 94 09/25/24 11:30 76 22 143/78 H 95 09/25/24 11:18 69 24 129/77 90 09/25/24 10:50 36.8 C 65 20 145/72 H 98 O2 Del Method 09/25/24 12:00 Room Air 06/30/25 11:30 Room Air 09/25/24 11:18 Room Air 09/25/24 10:50 Room Air Laboratory Results CBC, PT/PTT/INR, BMP, LFTs, troponin, TSH reviewed Diagnostic Findings CTA head and neck, CT head, CXR reviewed ECG Additional Comments: ECG on 09/25/2024 at 10:57 AM with normal sinus rhythm, rate 78, no ischemic changes, QTc 421 Code Status & VTE Plan Code Status Conditional code-no artificial ventilation/intubation but is okay with defibrillation, ACLS medications and chest compressions VTE Prophylaxis Plan VTE Prophylaxis will be ordered: Yes PG Care Time/CCT Total # of Minutes Spent Total Time Spent with Patient: Total time spent is greater than 50% in coordination of care (as documented) at patient's floor/unit and/or counseling patient: Coding Level of Care Code 62012 INT INP/OBS CARE 3/75MIN Diagnoses Left-sided weakness R53.1 Chest pain R07.9 Coronary artery disease I25.10
[2024-09-25 14:18] LABS: Thyroid Stimulating Hormone 7.785 uIu/ml (0.300-4.500)
[2024-09-25] MEDS ORDERED: PHARMACIST DISCHARGE MED REC CONSULT PRN (16:37)
[2024-09-25] MEDS ORDERED: ALBUTEROL HFA 8 GM INHALER INH PRN (16:37)
[2024-09-25] MEDS ORDERED: ONDANSETRON INJ 2 MG/ML 2 ML VIAL IV PRN (16:37)
[2024-09-25] MEDS ORDERED: ACETAMINOPHEN 325 MG TAB PO PRN (16:37)
[2024-09-25] MEDS: NICOTINE 21 MG/24 HR TDSY TD SCH (18:02)
[2024-09-25] MEDS: ENOXAPARIN INJ 40 MG/0.4 ML SYR SQ SCH (18:02)
--- NOTE | 2024-09-25 19:53 | XRay Report ---
Clinical History: MRI clearance Technique: 3 views of the orbits are submitted for review. Findings: No definite sinus opacification is seen. No fracture is evident. No focal osseous lesion is identified. There are no radiopaque foreign bodies. Impression: No visible foreign body. No contraindication to MRI is seen Electronically signed by Denny Wilson 09-25-2024 7:52 PM
[2024-09-25] MEDS: GADOBUTROL 65ML VIAL IV ONE (20:01)
--- NOTE | 2024-09-25 23:02 | Magnetic Resonance Report ---
Exam(s): MRI HEAD W/WO Contrast IV Amt: 10ml gadavist EXAM: MR Head Without and With Intravenous Contrast CLINICAL HISTORY: Recurrent left-sided weakness. TECHNIQUE: Magnetic resonance images of the head/brain without and with intravenous contrast in multiple planes. CONTRAST: Patient received 10ml Gadavist of IV contrast COMPARISON: CT head 09/25/2024. FINDINGS: Brain: Age-appropriate central and peripheral atrophy. No acute stroke. Minimal degree of supratentorial periventricular and subcortical white matter hyperintensities on FLAIR and T2-weighted images. No mass lesion. No abnormal parenchymal or leptomeningeal enhancement postcontrast. No acute hemorrhage or abnormal extra-axial fluid collection. Ventricles: No midline shift. No ventriculomegaly. Bones/joints: Unremarkable. No acute fracture. Sinuses: Unremarkable as visualized. No acute sinusitis. Mastoid air cells: Unremarkable as visualized. No mastoid effusion. Orbits: Unremarkable as visualized. IMPRESSION: 1. No acute stroke or hemorrhage. 2. Minimal nonspecific white matter changes most commonly seen with small vessel disease. Electronically signed by: Jeremi Morales M.D. 09/25/24 23:01 PM
[2024-09-26 05:02] VITALS: RESP 18
[2024-09-26] MEDS: LEVOTHYROXINE SODIUM 150 MCG TABLET PO SCH (06:30)
[2024-09-26 07:36] LABS: Hematocrit (blood only) 42.0 % (42.0-52.0); Hemoglobin 14.0 g/dl (14.0-18.0); Immature Granulocytes # (auto) 0.03 K/uL (0.01-0.20); Immature Granulocytes % (auto) 0.4 %; Mean Corpuscular Hemoglobin 29.7 pg (25.0-34.0); Mean Corpuscular Volume 89.0 fL (80.0-100.0); Platelet Count 278 K/uL (130-400); RDW Standard Deviation 45.8 fL (36.4-46.3); Red Blood Count 4.72 M/uL (4.70-6.10); White Blood Count 7.74 K/ul (4.8-10.8)
[2024-09-26 07:50] LABS: Anion Gap 5.0 (3-11); Blood Urea Nitrogen 12.0 mg/dl (6-23); Calcium 8.7 mg/dl (8.6-10.3); Carbon Dioxide 25.0 mmol/L (21-32); Chloride 109.0 mmol/L (98-107); Cholesterol 195.0 mg/dl (0-200); Creatinine Clr Calc Pharmacy 130.7 ml/min; Glucose 96.0 mg/dl (70-99(Fasting)); HDL Cholesterol 35.0 mg/dl; Potassium 4.3 mmol/L (3.5-5.1); Sodium 139.0 mmol/L (136-145); Triglycerides 201.0 mg/dl (0-150)
[2024-09-26 08:03] VITALS: TEMP 97.9
[2024-09-26] MEDS: ATENOLOL 25 MG TABLET PO SCH (08:27)
[2024-09-26] MEDS: ASPIRIN 81 MG ECTAB PO SCH (08:27)
[2024-09-26] MEDS: REMOVE NICODERM PATCH SCH (08:27)
[2024-09-26] MEDS: FUROSEMIDE 20 MG TAB PO SCH (08:28)
[2024-09-26 08:50] LABS: Hemoglobin A1C 6.1 % (4.5-5.6)
--- NOTE | 2024-09-26 10:49 | XCELERA ---
[id number]
--- NOTE | 2024-09-26 11:01 | Neurology Consultation ---
Date of Consultation September 26, 2024 Assessment & Plan (1) Stroke-like symptoms: (2) Complicated migraine: Plan This patient presented September 25 with "strokelike symptoms" consisting of left ptosis, left facial droop, and left upper extremity weakness and numbness. The symptoms lasted a few hours then resolved. He then developed a left-sided headache. He has had these spells before and overall this is consistent with migraine (and has a history of complicated migraine). MRI of the brain with and without contrast was unremarkable and there was no stroke. CT angiography of the head and neck were unremarkable. Currently his neurologic examination is normal without focal findings, meningeal signs, or encephalopathy. The patient does have a history of hypertension but this is controlled on medication. Recommendations: 1. Since his migraines are so sporadic (most recent to yesterday's event was 2 years ago), there is no indication for medication to prevent episodes. However, his symptoms have a considerable vasospasm component. Once he is in an aura, there is no medication to help with that. It just needs to "run its course". The headache component is treatable with as needed medication (I would suggest a newer medication such as Ubrelvy or Nurtec), but the headache phase really is not that significant to him. I would avoid triptans as they lead to vasospasm and could make a complicated migraine worse. 2. Verapamil is one of the few medications that can prevent migraine vasospasm/complicated migraine. If he needed a blood pressure medication, this would be the one to use. However, it does not make sense to initiate this medication to prevent something that may not occur for 1 or more years. 3. Otherwise I have no further neurologic testing or treatment recommendations to make at this time. Please contact me of any be of further assistance and if he desires, we could see him as an outpatient in neurology. 4. The patient needs a new PCP and desires to have someone in the [facility] office. Overall, I spent a total of 90 minutes with this case including review of records, review of CT and MRI films, direct evaluation of patient at bedside, report generation, and discussion of the case with the patient and RN and Dr. Linder including differential diagnosis and treatment options. History of Present Illness Reason for Consultation: Patient is a 58-year-old, who I was asked to see the request of Dr. Linder, for neurologic consultation regarding strokelike symptoms. Requesting Physician: Dr. Linder Attending Physician: Juanita Linder MD History of Present Illness This patient has a history of coronary artery disease post stent in 2022. He also has a diagnosis of migraines especially complicated/hemiplegic type since his mid 40s. He used to see Dr. Stephens in [place] and then saw a neurologist in [place] (unknown person). Patient does have unusual migraines intermittently but they occur anywhere from once every 1 to 3 years. He has had episodes in the past where he gets the onset of left eye drooping and facial drooping with some left upper extremity weakness followed by a left-sided pounding headache. There might be photophobia and phonophobia but invariably there is no nausea or vomiting. Many times he gets the weakness of the face and arm on the left without the headache. His most recent event was 2 years ago. 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 He was feeling quite well. Around 0730 he thinks he pulled a left anterior chest muscle and it was quite sore. Around 2121-1666 he had the onset of left upper eyelid drooping and left facial drooping with blurred vision as well as left upper extremity weakness and numbness. His leg was not really involved. Perhaps had a slight left-sided headache but the headache was not significant. He arrived at the emergency room September 25 at 1050 with a temperature of 36.8, pulse 65 and regular, respiratory rate 20, blood pressure 145/72, and O2 saturation 96%. On examination his left upper eyelid was closed and he had a left facial droop. His left arm was weak. CHEM profile and CBC were unremarkable. Liver profile was normal. TSH was 7.7. Chest x-ray showed some bibasilar atelectasis. CT scan of the head was unremarkable. CT angiography of the head and neck were unremarkable without any vascular stenoses or anomalies. MRI of the brain with and without contrast showed some mild old small vessel ischemic disease of a nonspecific nature, and there is no acute stroke or any other abnormalities. I reviewed these films. Later in the afternoon of September 25 he had a left-sided headache of a pounding nature. This morning he has no headache, weakness, numbness, blurry vision or any other symptoms. He feels back to baseline. This morning CBC and CHEM profile were unremarkable. Triglycerides were 201 and total cholesterol 195. Hemoglobin A1c was 6.1. Blood pressure is 130/60 and he is afebrile. Allergies Allergy/AdvReac Type Severity Reaction Status Date / Time levothyroxine sodium Allergy Intermediate Hives Verified 09/25/24 14:42 [From Synthroid] Home Medications Medication Instructions Recorded Confirmed Type aspirin 81 mg tablet,delayed 81 mg PO DAILY 04/13/22 09/25/24 History release albuterol sulfate 90 mcg/actuation 2 inh inhalation QID PRN shortness 12/29/23 09/25/24 Rx aerosol inhaler of breath or wheezing #8.5 grams CPAP Machine #1 ea 06/20/24 08/01/24 Rx atenolol 25 mg tablet 25 mg PO DAILY #90 tabs 08/01/24 09/25/24 Rx furosemide 20 mg tablet (Lasix) 20 mg PO DAILY #90 tabs 08/01/24 09/25/24 Rx levothyroxine 150 mcg tablet 150 mcg PO DAILY #60 tabs 08/07/24 09/25/24 Rx (Euthyrox) Patient History Medical History Left arm weakness Chest pain Asthma Surgical History S/P ureteral stent placement Family History (Updated 09/26/24 @ 10:53 by Julio Perez MD) Mother , age 63 with COPD COPD (chronic obstructive pulmonary disease) Father Hypertension Son Kidney disease Sister Diabetes Social History (Updated 09/26/24 @ 10:53 by Julio Perez MD) Smoking Status: Current every day smoker Tobacco Type: Cigarettes Age Started Using Tobacco: 14; Cigarettes Per Day: 15; Second Hand Exposure: Yes; Do You Dip or Chew Tobacco: No; Hx Alcohol Use: Yes Alcohol type: beer Alcohol Intake Frequency: Monthly or Less Hx Substance Use: No Preferred Language: Estonian Communication Ability: Effective Architect Internship Required: No Beliefs That Will Affect Care: None Current Living Situation: Significant Other current occupational status: employed current occupation: [employer] Feels Safe at Home: Yes Assistive Devices: CPAP Review of Systems Constitutional: no fever, no fatigue and no weakness Eyes: no diplopia, no eye pain and no worsening vision Ear, Nose, Mouth, Throat: no ear pain, no tinnitus, no hearing loss, no dizziness, no snoring, no hoarseness and no dysphagia Respiratory: no cough and no dyspnea Cardiovascular: no chest pain, no palpitations and no lightheadedness Gastrointestinal: no abdominal pain, no nausea and no vomiting Musculoskeletal: no back pain, no neck pain, no radicular pain, no joint pain and no myalgia Integumentary: no rash and no lesions Neurologic: no gait abnormality, no localized weakness, no generalized weakness, no tingling, no numbness, no tremor(s), no abnormal movements, no headache(s), no abnormal speech, no confusion and no memory loss Psychiatric: no depression, no irritability, no anxiety, no difficulty concentrating, no confusion and no hallucinations Endocrine: no fatigue and no flushing Hematologic / Lymphatic: no easy bleeding and no easy bruising Allergy / Immunological: no urticaria and no problem reported Exam (Neuro) Physical Exam: The patient is right-handed. The patient is awake, alert, and attentive. Speech is normal without any aphasia or dysarthria. Mentation and thought processes are intact, with full orientation and normal fund of knowledge. Mood and affect are normal and appropriate. Appearance and grooming are normal. Short and long-term memory are intact. Pupils are 4 mm bilaterally and reactive to light. Extraocular eye muscles are intact without nystagmus. Visual acuity and visual samaniego seem normal grossly to confrontation. There are no deficits to sensation in the face in all 3 distributions of the fifth cranial nerve bilaterally. Corneal reflexes are positive bilaterally. Facial strength and symmetry was normal bilaterally. Hearing seems intact grossly to voice and finger rub bilaterally. Palate moves well without asymmetry. There is normal sternocleidomastoid and trapezius strength mai aterally. Tongue is midline with good strength bilaterally. Neck has a full range of motion without discomfort. There are no cervical bruits bilaterally. There are no cranial or ocular bruits. Heart is without murmur. There is a regular rhythm and rate. Cervical, thoracic, and lumbar spine are nontender to palpation. Gait is narrow based, with good arm swing, turns, and stance. Balance is normal eyes open or closed. With outstretched arms there is no drift. There are no resting, postural, or action tremors. There is no ataxia with finger to nose testing. There is good facility in the hands. No other abnormal involuntary movements are noted. Motor strength is 5/5 diffusely in the arms bilaterally including deltoids, biceps, triceps, brachioradialis, wrist flexors and extensors, membership secretary, and intrinsic hand muscles. Motor strength is 5/5 diffusely in the legs bilaterally including hip flexors, quadriceps, hamstrings, gastrocnemius, tibialis anterior, tibialis posterior, and Peroneii muscles bilaterally. Toe extensors are normal and there is good bulk in the extensor digitorum brevis muscles bilaterally. The limbs have good tone without rigidity or spasticity. There is no atrophy noted in the muscles. Muscle bulk is normal, there is no tenderness to palpation, no myotonia to percussion, and no fasciculations seen. Sensory examination is intact to touch and pin throughout all 4 limbs diffusely. Reflexes are 2/4 in the biceps, triceps, brachioradialis, quadriceps, and Achilles tendons bilaterally. Results & Data Vital Signs (Past 12 Hours) Vital Signs Temp Pulse Pulse Pulse Resp BP Pulse Ox 09/26/24 08:01 36.6 C 57 L 18 130/69 92 09/26/24 07:15 54 L 09/26/24 05:00 36.5 C 66 18 121/83 96 09/26/24 02:23 15 09/26/24 00:24 36.5 C 18 L 57 L 18 106/63 94 09/25/24 23:05 35 L O2 Del Method 09/26/24 08:01 Room Air 09/26/24 07:15 09/26/24 05:00 Room Air, CPAP 09/26/24 02:23 09/26/24 00:24 Room Air, CPAP 09/25/24 23:05 PG Care Time/CCT Total # of Minutes Spent Total Time Spent with Patient: Total time spent is greater than 50% in coordination of care (as documented) at patient's floor/unit and/or counseling patient: Coding Level of Care Code 48945 INT INP/OBS CARE 3/75MIN Diagnoses Stroke-like symptoms R29.90 Complicated migraine G43.109 Time Spent (min) 90
[2024-09-26 11:46] VITALS: BP 107/73; O2SAT 96
--- NOTE | 2024-09-26 13:07 | Discharge Summary ---
Discharge Summary Date of Service September 26, 2024 Principal Dx & Hospital Course #1 = Principal Diagnosis (1) Left-sided weakness: (2) Chest pain: (3) Coronary artery disease: (4) Complicated migraine: Plan This patient is a 58-year-old male with a history of HTN, CAD s/p inferior AK and RCA stent, JOHAN, nocturnal bradycardia, NSVT, HLD, hypothyroidism and several evaluations for TIA in the past, current smoker, who presents to the ER with acute onset of left-sided chest pain radiating to the neck and left upper extremity followed by left facial droop and numbness and left upper extremity heaviness and weakness. He then developed a left sided mild headache 3/10 in severity along with blurry vision. He denies nausea/vomiting or photophobia/phonophobia. His symptoms were ongoing for about 2 and half hours prior to arrival in the ED. He reports that the symptoms are very similar to the way he presented in the past for TIA workups which were all found to be negative both here and at outside hospitals. A CT of the head, and CTA of the head and neck were negative in the ED. CXR showed atelectasis versus pneumonia in the bases, and ECG was without ischemic changes, and troponin was negative. He had a telestroke neurology consult who did think this was probably a hemiplegic migraine given similar presentations in the past that resolved spontaneously, but could not rule out stroke and recommended TNKase. The p atient declined TNKase at this time. Of note, a recent TSH 2 months prior was quite elevated at 131. The patient was given a migraine cocktail with Compazine, Benadryl, and IV morphine and had significant improvement in his symptoms by the time I saw him at admission. The patient was admitted for stroke workup. #Left-sided weakness/left-sided facial droop/headache- Focal neurological symptoms on left side resolved with treatment of migraine. This has happened several times in the past-question if complex/hemiplegic migraine. He certainly does also have risk factors for TIA/CVA to include HTN, smoking. His TSH was significantly elevated in July but is now improving with an increased dose of levothyroxine. CTA head and neck negative. Echo with bubble study previously showed an ASA but not good resolution for PFO. ECHO here now with +PFO, preserved EF. He previously had a loop recorder in which never recorded any occult atrial fibrillation/flutter and has since been removed. No arrhythmias seen here on tele. MRI brain negative for stroke but showed small vessel disease. Appreciate neuro consult-suspects complicated migraine but not often enough to warrant prophylaxis. - Continue aspirin - He is intolerant of all/most statins and does not want to take any of them- previously on Repatha but needs to have this refilled by PCP as an outpatient. Lipid panel not at goal-TChl 195, LDL 120 -HgbA1c in prediabetes range at 6.1% - Counseled on smoking cessation -Symptoms completely resolved. -can f/u if desired with Neuro as outpt #Chest pain/CAD s/p inferior AK and RCA stent-chest pain seems MSK in nature as he is tender to palpation and it changes with position. ECG negative, troponin negative x 2, ECHO no wall motion abnormalities - Continue aspirin, atenolol - Resume Repatha as an outpatient #Current smoker-back up to smoking 3/4 to 1 pack/day for many years - Counseled on cessation - Start nicotine 21 mg transdermal patch daily-sent Rx to pharmacy so he can use his FSA to pay for it #HLD/HTN-BPs are controlled - Continue home atenolol, Lasix #JOHAN on CPAP-continue CPAP #Hypothyroidism-TSH elevated at 131 in July/2024 and levothyroxine dose increased to 150 mcg daily. Repeat TSH here now down to 7 - Continue levothyroxine 150 mcg daily - Needs follow-up with PCP-he has not seen his PCP in quite some time DVT prophylaxis-SCDs, Lovenox SQ Disposition-dc to home Notes For Next Care Provider Medication Changes From Visit see list Admission HPI Per Admitting Provider This patient is a 58-year-old male with a history of HTN, CAD s/p inferior AK and RCA stent, JOHAN, nocturnal bradycardia, NSVT, HLD, hypothyroidism and several evaluations for TIA in the past, current smoker, who presents to the ER with acute onset of left-sided chest pain radiating to the neck and left upper extremity followed by left facial droop and numbness and left upper extremity heaviness and weakness. He then developed a left sided mild headache 3/10 in severity along with blurry vision. He denies nausea/vomiting or photophobia/phonophobia. His symptoms were ongoing for about 2 and half hours prior to arrival in the ED. He reports that the symptoms are very similar to the way he presented in the past for TIA workups which were all found to be negative both here and at outside hospitals. A CT of the head, and CTA of the head and neck were negative in the ED. CXR showed atelectasis versus pneumonia in the bases, and ECG was without ischemic changes, and troponin was negative. He had a telestroke neurology consult who did think this was probably a hemiplegic migraine given similar presentations in the past that resolved spontaneously, but could not rule out stroke and recommended TNKase. The patient declined TNKase at this time. Of note, a recent TSH 2 months prior was quite elevated at 131. The patient was given a migraine cocktail with Compazine, Benadryl, and IV morphine and had significant improvement in his symptoms by the time I saw him at admission. The patient will be admitted for stroke workup. Discharge Exam Constitutional WD/WN, vitals as above Neck trachea midline, no thyromegaly Respiratory normal respiratory effort, lungs clear to auscultation Cardiovascular RRR, no murmur, no edema Chest (Breasts) Chest: normal inspection of chest Gastrointestinal (Abdomen) normal bowel sounds, soft, nontender, no hepatosplenomegaly Musculoskeletal Extremities: extremities normal to inspection; no cyanosis and no clubbing Skin no rashes, warm and dry Neurologic moves all extremities and awake; no focal motor deficits and not confused Speech / Cognition: normal speech and normal cognition Psychiatric A+Ox3, euthymic affect Lymphatic no lymphedema Discharge Plan Discharge Items Patient Disposition: Home - Self-Care Reason For Visit: LEFT SIDED WEAKNESS Discharge Diagnosis: Left sided weakness, likely complicated migraine Musculoskeletal chest pain Condition on Discharge: Fair Activity: Resume your previous activity Non-emergency contact: Primary Care Provider and Neurologist Call non-emergency contact if: you have any medication questions, your symptoms worsen and your pain is not controlled Follow-up/Referrals: Julio Perez MD [Physician] - (Follow-up within 1 month with neurology if desired) Himanshu Parry DO [Physician] - 10/05/24 11:00 am Diet: Heart Healthy Addtl Attending Provider Instructions: You were admitted because of left-sided weakness and were found to not have a stroke. Your symptoms are likely from a complicated migraine. The neurologist did not feel strongly about you starting a preventative medication as your complicated migraines only occur every couple of years, but if you are primary care physician wanted to change your blood pressure medicine to verapamil, this is an option that would also help prevent future migraines. Please talk to your new PCP about prescribing you Repatha again to treat your cardiovascular disease/cholesterol. You do have an enlarged lymph node in your chest that should be followed up on by a lung specialist called a cartographic designer. A referral has been made for you for this. You can take Tylenol or topical BioFreeze for your chest pain. Please continue to work on quitting smoking which will greatly improve your health overall. Pending Studies at Discharge: No Stand-Alone Forms: [facility], Work/School Release, Smoking Cessation Medications and DC Order Prescriptions: New nicotine [Nicoderm CQ] 21 mg/24 hr Patch 24 Hour 1 patch transdermal QAM Qty: 30 0RF Continued aspirin 81 mg tablet,delayed release (DR/EC) 81 mg PO DAILY Rx Instructions: Unable to verify OTC meds at this date/time. atenolol 25 mg tablet 25 mg PO DAILY Qty: 90 3RF furosemide [Lasix] 20 mg tablet 20 mg PO DAILY Qty: 90 3RF (DME) CPAP Machine Misc See Rx Instructions .Route Qty: 1 0RF Rx Instructions: Auto CPAP 5-20 cm water pressure with heated humidificaiton, tubing, and supplies and with nasal pillows. ARI: 99+ years. albuterol sulfate 90 mcg/actuation HFA aerosol inhaler 2 inh inhalation QID PRN (Reason: shortness of breath or wheezing) Qty: 8.5 0RF levothyroxine [Euthyrox] 150 mcg tablet 150 mcg PO DAILY Qty: 60 3RF Rx Instructions: Per pharmacy, this is NOT showing as discontinued. However, it is listed on pt's allergy list as well. Discharge Orders: Discharge Order (Routine); Ordered 09/26/24 Ordered By: Juanita Garvin/Other Patient Handouts: Prediabetes, 5 Steps for Eating Healthier Admission Data Admit Date/Time: 09/25/24 14:06 Attending Provider: Juanita Linder Admit Provider: Juanita Linder Primary Care Provider: Himanshu Cortez Other Providers: Julio Perez; Juanita Linder Hospital Stay Data Consultations 09/25/24 12:08 ED Decision to Admit Stat 09/25/24 14:07 Consult Neurology Routine Diagnostic Imagining Performed 09/25/24 11:00 CT angio head w con Stat CT angio neck with con Stat CT head/brain wo con Stat 09/25/24 16:37 MR brain wo/w con Routine ECHO Pending Results Patient Have Any Pending Studies at Discharge: No Discharge Instructions Given to Patient (Per Discharging Provider) You were admitted because of left-sided weakness and were found to not have a stroke. Your symptoms are likely from a complicated migraine. The neurologist did not feel strongly about you starting a preventative medication as your complicated migraines only occur every couple of years, but if you are primary care physician wanted to change your blood pressure medicine to verapamil, this is an option that would also help prevent future migraines. Please talk to your new PCP about prescribing you Repatha again to treat your cardiovascular d isease/cholesterol. You do have an enlarged lymph node in your chest that should be followed up on by a lung specialist called a cartographic designer. A referral has been made for you for this. You can take Tylenol or topical BioFreeze for your chest pain. Please continue to work on quitting smoking which will greatly improve your health overall. Total Time Total Time Spent Total Time Spent (In Minutes): 35 min Total Time Includes: Examination of the Patient, Discharge Planning, Medication Reconciliation and Communication With Other Providers (Neurology) Coding Level of Care Code 19404 INP/OBS DISCH >30 MIN Diagnoses Left-sided weakness R53.1 Chest pain R07.9 Coronary artery disease I25.10 Complicated migraine G43.109
[2024-09-26 13:12] VITALS: PULSE 18
--- NOTE | 2024-09-26 14:40 | Electrocardiogram Report ---
Test Reason : Blood Pressure : */* mmHG Vent. Rate : 78 BPM Atrial Rate : 78 BPM P-R Int : 176 ms QRS Dur : 86 ms QT Int : 370 ms P-R-T Axes : 64 14 37 degrees QTcB Int : 421 ms Normal sinus rhythm Low voltage QRS Abnormal ECG When compared with ECG of 29-Dec-2023 16:11, Nonspecific T wave abnormality no longer evident in Lateral leads Confirmed by Car Miller ([id number]) on 09/26/2024 2:40:35 PM Referred By: REFERRED SELF Confirmed By: Car Miller
== END 2024-09-26 13:41 | disposition home or self-care (01) | DRG 103 ==
LOC: SUATTDRO → ED 10:45 → 2W 14:06

== ENCOUNTER 2024-12-07 11:47 | Inpatient (IN) ==
[2024-12-07] MEDS: ASPIRIN CHEW 324 MG ONE (12:08)
[2024-12-07] MEDS: ONDANSETRON INJ 2 MG/ML 2 ML VIAL ONE (12:09)
--- NOTE | 2024-12-07 12:13 | Emergency Department Note ---
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 Patient is accompanied by his partner who provide additional history. The patient reports significant nausea, vomiting and diarrhea that has been ongoing since early this morning. States that symptoms started around 3 AM. He states he has had intermittent chest pain now with worsening shortness of breath. Feels similar to prior cardiac events. They deny fever or chills. No cough or congestion. No urinary complaints. No recent changes in bowel movements. Patient denies recent changes in medications or OTC supplements. Patient offers no other complaints, today. ADDITIONAL HISTORY OBTAINED: Per HPI Chronic Medical/Social Conditions Affecting Care: Per HPI PAST MEDICAL HISTORY: See Below PAST SURGICAL HISTORY: See Below FAMILY HISTORY: See Below SOCIAL HISTORY: See Below HOME MEDICATIONS: See Below ALLERGIES: See Below VITALS: See Below PHYSICAL EXAMINATION: GENERAL: Sitting up in bed, alert, well appearing, well nourished, no distress, non-toxic EYE EXAM: normal conjunctiva. PERRL and EOM's grossly intact. OROPHARYNX: no exudate, no erythema, lips, buccal mucosa, and tongue normal and mucous membranes are moist NECK: supple, no nuchal rigidity, no adenopathy, non-tender LUNGS: Clear to auscultation. Normal chest wall mechanics HEART: no murmurs, regular rate, regular rhythm, 2+ distal pulses, warm and well perfused ABDOMEN: abdomen soft, non-tender, no masses, no rebound or guarding. BACK: Back is symmetrical on inspection and there is no deformity, no midline tenderness, no CVA tenderness. SKIN: no rashes and no bruising UPPER EXTREMITIES: upper extremities are grossly normal. LOWER EXTREMITIES: No pitting edema. NEURO EXAM: Normal sensorium, GCS 15, normal speech, no gross weakness of arms, no gross weakness of legs. MEDICAL DECISION MAKING: Differential diagnoses includes but not limited to STEMI, NSTEMI, dissection, PE, viral illness On arrival, the patient was having chest pain and EKG was obtained. EKG was independently interpreted by me as an inferior STEMI with lateral depressions. Heart alert was activated by me. The patient was given aspirin as well as fentanyl for pain control. In summary, this is a 58 year old male who presented with chest pain. Differential as above. Nursing notes and pertinent past medical records reviewed. Vital signs reviewed and the patient is afebrile and HDS. History and presentation revealed extensive cardiovascular disease with prior PCI to the RCA in 2022. Physical examination revealed as above. As a result of my initial evaluation, the patient was made a HEART alert on arrival. Diagnostics interpreted by me include cardiac monitoring as listed below: -Cardiac Monitoring: An order was placed for continuous cardiac monitoring. The monitor shows a rate of 70-90s with regular rhythm. Patient completed laboratory studies and imaging. Results independently interpreted by me are minimal leukocytosis without anemia. Normal electrolytes and troponin. CXR deferred by cardiology. The patient was managed with ASA load and Fentanyl. Ultimately, the decision was made to admit the patient for STEMI and direct cardiac catheterization. I discussed the case with the hospitalist service via telephone/TigerText and they are agreeable to admit the patient to their services. Based on the above, including the patient's age, coexisting illnesses, labs, imaging, and exam findings the decision to treat as an inpatient. I discussed the patient with the hospitalist team who recommended admission to their services. They received the medications, treatments, interventions indicated above and their condition remained guarded. I discussed my findings with the patient and their family and they understand and agree with the treatment plan. All patient / family questions were answered to their satisfaction. Consults/Care Managements Discussions: Per [facility] ER treatment provided: See above Procedures:none Critical Care: None The chart was completed utilizing I-DISPO Speech voice recognition software. Grammatical errors, random word insertions, pronoun errors, and incomplete sentences are an occasional consequence of this system due to software limitations, ambient noise, and hardware issues. Any formal questions or concerns about the content, text, or information contained within the body of this dictation should be directly addressed to the physician for clarification. Past Med/Surg History Problem List (Updated 12/12/24 @ 14:44 by Arash Blunt DO) ST elevation (STEMI) myocardial infarction involving right coronary artery (Acute) Alveolar emphysema of lung Pulmonary nodule Mediastinal lymphadenopathy Skin lesion of cheek Prediabetes Complicated migraine Precordial chest pain (Acute) Nocturnal hypoxemia Severe obstructive sleep apnea History of loop recorder Sinus pause Tachycardia Bradycardia Coronary artery disease Tobacco abuse Dyslipidemia PAC (premature atrial contraction) Hypothyroid Palpitations Vertigo (Chronic) Hematuria (Acute) Medical History Left arm weakness Chest pain Asthma Surgical History S/P ureteral stent placement Family History Mother COPD (chronic obstructive pulmonary disease) Father Hypertension Son Kidney disease Sister Diabetes Grandfather (Paternal) Myocardial infarction Grandmother (Paternal) Myocardial infarction Denies family history of Ovarian cancer Prostate cancer Breast cancer Colorectal cancer Social History Smoking Status: Current every day smoker Tobacco Type: Cigarettes Age Started Using Tobacco: 14; packs per day: 0.5; Cigarettes Per Day: 15; Second Hand Exposure: Yes; Do You Dip or Chew Tobacco: No; Hx Alcohol Use: No Hx Substance Use: No Preferred Language: Mongolian Communication Ability: Effective Visual Impairment: No Limitations Hearing Ability: Normal Maid Cleaning Cooking Required: No Beliefs That Will Affect Care: None marital status: Single Current Living Situation: Family and Significant Other current occupational status: employed current occupation: [employer] How many Children do You have: 1 Feels Safe at Home: Yes Childhood Exposure to Second-Hand Smoke: Yes Diet: regular caffeine: Yes during the past year weight has: remained stable Dental Care, Regularly: No Physical Activity Frequency: Daily Seatbelt Use: always Sunscreen Use: Yes Assistive Devices: CPAP Allergies Allergies Allergy/AdvReac Type Severity Reaction Status Date / Time levothyroxine sodium Allergy Intermediate Hives Verified 12/11/24 10:18 [From Synthroid] Home Meds Home Medications Medication Instructions Recorded Confirmed furosemide 20 mg tablet (Lasix) 20 mg PO DAILY PRN Fluid Retention 10/05/24 12/11/24 atenolol 25 mg tablet 0 mg PO DAILY 12/07/24 12/11/24 Previous Rx's Medication Instructions Recorded albuterol sulfate 90 mcg/actuation 2 inh inhalation QID PRN shortness 12/29/23 aerosol inhaler of breath or wheezing #8.5 grams CPAP Machine #1 ea 06/20/24 levothyroxine 175 mcg capsule 175 mcg PO DAILY #30 caps 10/31/24 Synthroid 175 mcg tablet 175 mcg PO DAILYBB #30 tabs 12/10/24 (levothyroxine) aspirin 325 mg tablet,delayed See Taper PO Q8H #180 tabs 12/10/24 release (Ecotrin) colchicine 0.6 mg tablet (Colcrys) 0.6 mg PO BID #60 tabs 12/10/24 lisinopril 5 mg tablet 5 mg PO QAM #30 tabs 12/10/24 metoprolol succinate 25 mg 12.5 mg (1/2 x 25 mg) PO DAILY #30 12/10/24 tablet,extended release 24 hr tabs pantoprazole 40 mg tablet,delayed 40 mg PO DAILY 6 weeks #42 tabs 12/10/24 release pravastatin 10 mg tablet 10 mg PO DAILY@1700 #30 tabs 12/10/24 ticagrelor 90 mg tablet (Brilinta) 90 mg PO BID #60 tabs 12/10/24 Results & Data (ED) Vital Signs Vital Signs - 24 hr 12/07/24 11:49 12/07/24 12:00 12/07/24 12:00 Temperature 36.4 C L Temperature Source Oral Pulse Rate 92 H Pulse Rate [Apical] Respiratory Rate 20 Respiratory Effort / Characteristics Non-Labored Spontaneous Respiratory Depth Normal Respiratory Pattern Regular Blood Pressure 124/86 Blood Pressure [Left Arm] Blood Pressure Mean 98 Blood Pressure Mean [Left Arm] Pulse Oximetry 93 Oxygen Delivery Method Room Air Room Air Room Air Sepsis Recent Fever Within 48 Hours No Sepsis New/Unexplained Change in Mental Status N/A Sepsis Action Taken by Nursing No Action Required 12/07/24 12:04 12/07/24 12:10 Temperature Temperature Source Pulse Rate 85 Pulse Rate [Apical] 91 H Respiratory Rate 18 Respiratory Effort / Characteristics Non-Labored Spontaneous Respiratory Depth Normal Respiratory Pattern Regular Blood Pressure Blood Pressure [Left Arm] 145/86 H Blood Pressure Mean Blood Pressure Mean [Left Arm] 105 Pulse Oximetry 98 Oxygen Delivery Method Room Air Sepsis Recent Fever Within 48 Hours Sepsis New/Unexplained Change in Mental Status Sepsis Action Taken by Nursing Laboratory Data 12/10/24 06:40 12/10/24 06:40 Lab Results 12/07/24 12/07/24 Range/Units 12:04 12:10 WBC 12.92 H (4.8-10.8) K/ul RBC 5.47 (4.70-6.10) M/uL Hgb 15.6 (14.0-18.0) g/dl POC Hgb 16.7 (14.0-18.0) g/dl Hct 47.4 (42.0-52.0) % POC Hct 49 (42-52) % MCV 86.7 (80.0-100.0) fL MCH 28.5 (25.0-34.0) pg MCHC 32.9 (32.0-36.0) g/dL RDW Std Deviation 45.7 (36.4-46.3) fL RDW Coeff of Twin 14.4 (11.5-14.5) % Plt Count 304 (130-400) K/uL MPV 10.2 (9.4-12.4) fL Immature Gran % (Auto) 0.2 % Neut % (Auto) 73.8 % Lymph % (Auto) 14.9 % [place] % (Auto) 8.7 % Eos % (Auto) 1.9 % Baso % (Auto) 0.5 % Neut # (Auto) 9.53 H (1.40-6.50) K/uL Lymph # (Auto) 1.93 (1.20-3.40) K/uL [place] # (Auto) 1.13 H (0.11-0.59) K/uL Eos # (Auto) 0.24 (0.00-0.50) K/uL Baso # (Auto) 0.06 (0.00-0.20) K/uL Immature Gran # (Auto) 0.03 (0.01-0.20) K/uL PT 10.6 (9.0-12.0) Seconds INR 1.0 (0.9-1.1) APTT 27 (21-31) Seconds PTT Ratio 1.0 POC Sodium 141 (135-144) mmol/L Sodium 138 (136-145) mmol/L POC Potassium 4.3 (3.3-5.0) mmol/L Potassium 4.2 (3.5-5.1) mmol/L POC Chloride 107 (101-112) mmol/L Chloride 105 (98-107) mmol/L Carbon Dioxide 27 (21-32) mmol/L POC Total CO2 23 L (24-31) mmol/L Anion Gap 6 (3-11) POC Anion Gap 17.0 (16-25) mmol/L POC BUN 22 H (7-18) mg/dl BUN 21 (6-23) mg/dl Creatinine 0.89 (0.6-1.4) mg/dl POC Creatinine 1.0 (0.6-1.3) mg/dl Est Cr Clr Drug Dosing 100.1 ml/min eGFR 99.33 BUN/Creatinine Ratio 23.6 H (10-20) Glucose 130 H (70-99(Fasting)) mg/dl POC Glucose (other) 130 H (70-99) mg/dl Calcium 9.1 (8.6-10.3) mg/dl POC Ioniz Calcium Gretchen 1.11 L (1.12-1.32) mmol/l Magnesium 1.9 (1.7-2.4) mg/dl Total Bilirubin 0.5 (0.2-1.0) mg/dl AST 12 L (13-39) U/L ALT 13 (7-52) U/L Alkaline Phosphatase 63 (34-104) U/L Total Creatine Kinase 49 (30-223) U/L Troponin I High Sens 5.0 (0-20) pg/ml B-Natriuretic Peptide 8 (0-100) pg/ml Total Protein 8.1 (6.0-8.3) gm/dl Albumin 3.8 (3.4-5.0) gm/dl Globulin 4.3 H (2.5-4.0) gm/dl Albumin/Globulin Ratio 0.9 (0.9-2) Lipase 18 (11-82) U/L TSH 3.454 (0.300-4.500) uIu/ml Administered Medications Discontinued Medications Amiodarone HCl/Dextrose (Amiodarone 150mg / 100ml D5w (Oncology Nurse Navigator Use Only)) Confirm Administered Dose 150 mg IV .Trendlr-MED ONE Stop: 12/07/24 13:01 Last Admin: 12/07/24 13:24 Dose: 150 mg Documented By: AAF Amiodarone HCl/Dextrose (Amiodarone 360mg / 200ml D5w (Oncology Nurse Navigator Use Only)) Confirm Administered Dose 360 mg IV .STK-MED ONE Stop: 12/07/24 13:08 Last Admin: 12/07/24 13:24 Dose: 360 mg Documented By: ELENI Aspirin (Aspirin Chew 324 Mg) Confirm Administered Dose 324 mg .ROUTE .STK-MED ONE Stop: 12/07/24 12:05 Last Admin: 12/07/24 12:08 Dose: 324 mg Documented By: DEONNA Aspirin (Aspirin 81 Mg Ectab) 81 mg PO DAILY [facility] Stop: 01/07/25 08:59 Last Admin: 12/09/24 08:52 Dose: 81 mg Documented By: Admin: 12/08/24 08:56 Dose: 81 mg Documented By: JAZMIN Aspirin (Aspirin 325 Mg Ectab) 650 mg PO Q8H [facility] Stop: 01/08/25 12:59 Last Admin: 12/10/24 05:32 Dose: 650 mg Documented By: Admin: 12/09/24 20:32 Dose: 650 mg Documented By: [id number] Admin: 12/09/24 13:20 Dose: 650 mg Documented By: LITTLE Atorvastatin Calcium (Atorvastatin 40 Mg Tab) 80 mg PO QAM [facility] Stop: 01/07/25 08:59 Last Admin: 12/08/24 09:16 Dose: Not Given Documented By: JAMZIN Colchicine (Colchicine 0.6 Mg Tab) 0.6 mg PO BID [facility] Stop: 01/08/25 10:44 Last Admin: 12/10/24 08:06 Dose: 0.6 mg Documented By: jrh Admin: 12/09/24 20:30 Dose: 0.6 mg Documented By: [id number] Admin: 12/09/24 11:12 Dose: 0.6 mg Documented By: LITTLE Fentanyl Citrate (Fentanyl Citrate Pf 100 Mcg/2 Ml Vial) Confirm Administered Dose 100 mcg .ROUTE .STK-MED ONE Stop: 12/07/24 12:05 Last Increment: 12/07/24 12:08 Dose: 50 mcg Documented By: MARCIAL Fentanyl Citrate (Fentanyl Citrate Pf 100 Mcg/2 Ml Vial) Confirm Administered Dose 100 mcg .ROUTE .STK-MED ONE Stop: 12/07/24 12:06 Last Increment: 12/07/24 13:22 Dose: 75 mcg Documented By: ELENI Heparin Sodium (Porcine) (Heparin (Porcine) 1000 Unit/Ml 10 Ml (Oncology Nurse Navigator Use Only)) Confirm Administered Dose 10,000 units .ROUTE .STK-MED ONE Stop: 12/07/24 12:05 Last Admin: 12/07/24 13:21 Dose: 10,000 units Documented By: ELENI Heparin Sodium (Porcine) (Heparin (Porcine) 1000 Unit/Ml 10 Ml (Oncology Nurse Navigator Use Only)) Confirm Administered Dose 10,000 units .ROUTE .STK-MED ONE Stop: 12/07/24 12:38 Last Admin: 12/07/24 13:24 Dose: Not Given Documented By: ELENI Heparin Sodium/Sodium Chloride (Heparin In Nss Infusion 1000 Unit/500 Ml (2 U/Ml) Bag) Confirm Administered Dose 3,000 units IV .STK-MED ONE Stop: 12/07/24 12:06 Last Admin: 12/07/24 13:22 Dose: 3,000 units Documented By: ELENI Amiodarone HCl/Dextrose (Nexterone / D5w) 360 mg in 200 mls @ 33.333 mls/hr IV ONE ONE; Protocol Stop: 12/07/24 19:40 Last Infusion: 12/07/24 19:18 Dose: Infused Documented By: ANICETO Co-signed By: ANIYAH Admin: 12/07/24 14:37 Dose: 1 mg/min, 33.3 mls/hr Documented By: JAZMIN Co-signed By: SHELBY Amiodarone HCl/Dextrose (Nexterone / D5w) 360 mg in 200 mls @ 16.667 mls/hr IV .Q12H [facility] Stop: 01/06/25 19:44 Last Infusion: 12/08/24 13:45 Dose: Infused Documented By: JAZMIN Co-signed By: AMS Admin: 12/08/24 06:14 Dose: 0.5 mg/min, 16.7 mls/hr Documented By: ANICETO Co-signed By: TOMAP Infusion: 12/08/24 06:14 Dose: Infused Documented By: ANICETO Co-signed By: LLP Admin: 12/07/24 19:18 Dose: 0.5 mg/min, 16.7 mls/hr Documented By: ANICETO Co-signed By: ANIYAH Lactated Ringer's (Lr) 1,000 mls @ 999 mls/hr IV .Q1H1M ONE Stop: 12/09/24 06:23 Last Infusion: 12/09/24 06:52 Dose: Infused Documented By: [id number] Admin: 12/09/24 05:31 Dose: 999 mls/hr Documented By: [id number] Albumin Human (Albumin 25%) 25 gm in 100 mls @ 50 mls/hr IV ONE ONE Stop: 12/09/24 07:30 Last Admin: 12/09/24 06:31 Dose: Not Given Documented By: [id number] Acetaminophen (Ofirmev) 1,000 mg in 100 mls @ 400 mls/hr IV NOW STA Stop: 12/09/24 06:29 Last Infusion: 12/09/24 06:46 Dose: Infused Documented By: [id number] Admin: 12/09/24 06:21 Dose: 400 mls/hr Documented By: [id number] Lactated Ringer's (Lr) 1,000 mls @ 999 mls/hr IV .Q1H1M ONE Stop: 12/09/24 18:57 Last Infusion: 12/09/24 20:35 Dose: Infused Documented By: [id number] Infusion: 12/09/24 18:47 Dose: 80 mls/hr Documented By: Admin: 12/09/24 18:00 Dose: 999 mls/hr Documented By: LITTLE Iodixanol (Iodixanol (Visipaque) 320 Mg/Ml 100ml) Confirm Administered Dose 1 ml IV .STK-MED ONE Stop: 12/07/24 12:06 Last Admin: 12/07/24 13:23 Dose: Not Given Documented By: ELENI Ioversol (Optiray 350) Confirm Administered Dose 1 ml .ROUTE .STK-MED ONE Stop: 12/07/24 12:06 Last Admin: 12/07/24 13:23 Dose: 60 ml Documented By: ELENI Ketorolac Tromethamine (Ketorolac Tromethamine 15 Mg/Ml Vial) 15 mg IV Q6H PRN PRN Reason: Pain Stop: 12/11/24 13:43 Last Admin: 12/09/24 14:28 Dose: 15 mg Documented By: LITTLE Levothyroxine Sodium (Levothyroxine Sodium 175 Mcg Tablet) 175 mcg PO DAILYBB [facility] Stop: 01/07/25 06:29 Last Admin: 12/10/24 05:32 Dose: 175 mcg Documented By: Admin: 12/09/24 06:25 Dose: 175 mcg Documented By: [id number] Admin: 12/08/24 06:13 Dose: 175 mcg Documented By: ANICETO Lisinopril (Lisinopril 5 Mg Tab) 5 mg PO QAM [facility] Stop: 01/07/25 08:59 Last Admin: 12/10/24 08:06 Dose: 5 mg Documented By: diana Admin: 12/09/24 08:52 Dose: 5 mg Documented By: Admin: 12/08/24 08:57 Dose: 5 mg Documented By: JAZMIN Loperamide HCl (Loperamide Hcl 2 Mg Cap) 2 mg PO NOW STA Stop: 12/09/24 22:32 Last Admin: 12/09/24 22:40 Dose: 2 mg Documented By: RICKEY Magnesium Sulfate (Mag Sulfate 50% 1gm/2ml Vial) Confirm Administered Dose 1 gm IV .STK-MED ONE Stop: 12/07/24 13:05 Last Admin: 12/07/24 13:24 Dose: 2 gm Documented By: ELENI Metoprolol Tartrate (Metoprolol Tartrate 25 Mg Tab) 12.5 mg PO TID [facility] Stop: 01/06/25 13:24 Last Admin: 12/10/24 08:09 Dose: Not Given Documented By: diana Admin: 12/09/24 21:09 Dose: Not Given Documented By: [id number] Admin: 12/09/24 13:20 Dose: 12.5 mg Documented By: Admin: 12/09/24 08:53 Dose: 12.5 mg Documented By: Admin: 12/08/24 20:06 Dose: 12.5 mg Documented By: [id number] Admin: 12/08/24 14:30 Dose: 12.5 mg Documented By: Admin: 12/08/24 08:58 Dose: 12.5 mg Documented By: Admin: 12/07/24 20:20 Dose: 12.5 mg Documented By: Admin: 12/07/24 14:33 Dose: 12.5 mg Documented By: JAZMIN Midazolam HCl (Midazolam Hcl 1 Mg/Ml 2ml Vial) Confirm Administered Dose 2 mg .ROUTE .STK-MED ONE Stop: 12/07/24 12:05 Last Admin: 12/07/24 13:21 Dose: 2 mg Documented By: ELENI Morphine Sulfate (Morphine Sulfate 2 Mg/Ml Carp) 1 mg IV NOW STA Stop: 12/09/24 05:33 Last Admin: 12/09/24 05:38 Dose: 1 mg Documented By: [id number] Morphine Sulfate (Morphine Sulfate 2 Mg/Ml Carp) 1 mg IV NOW STA Stop: 12/09/24 05:47 Last Admin: 12/09/24 05:52 Dose: 1 mg Documented By: [id number] Nicardipine HCl (Nicardipine 2,000 Mcg/20 Ml Syr) Confirm Administered Dose 2,000 mcg .ROUTE .STK-MED ONE Stop: 12/07/24 12:06 Last Admin: 12/07/24 13:23 Dose: 2,000 mcg Documented By: ELENI Nitroglycerin (Nitroglycerin Sl 0.4 Mg/Tab Tab) Confirm Administered Dose 0.4 mg .ROUTE .STK-MED ONE Stop: 12/09/24 05:10 Last Admin: 12/09/24 05:10 Dose: 0.4 mg Documented By: [id number] Nitroglycerin (Nitroglycerin Sl 0.4 Mg/Tab Tab) 0.4 mg SL Q5M PRN; Protocol PRN Reason: Chest Pain Last Admin: 12/09/24 05:18 Dose: 0.4 mg Documented By: [id number] Nitroglycerin/Dextrose (Nitroglycerin/D5w 100mcg/Ml 20ml Syr) Confirm Administered Dose 2,000 mcg .ROUTE .STK-MED ONE Stop: 12/07/24 12:06 Last Admin: 12/07/24 13:23 Dose: 2,000 mcg Documented By: ELENI Ondansetron HCl (Ondansetron Inj 2 Mg/Ml 2 Ml Vial) Confirm Administered Dose 4 mg .ROUTE .STK-MED ONE Stop: 12/07/24 12:04 Last Admin: 12/07/24 12:09 Dose: 4 mg Documented By: DEONNA Pantoprazole Sodium (Pantoprazole 40 Mg Tab) 40 mg PO QAM [facility] Stop: 01/07/25 08:59 Last Admin: 12/10/24 08:09 Dose: 40 mg Documented By: diana Admin: 12/09/24 08:53 Dose: 40 mg Documented By: Admin: 12/08/24 08:58 Dose: 40 mg Documented By: JAZMIN Pravastatin Sodium (Pravastatin Sod 10 Mg Tab) 10 mg PO DAILY@1700 [facility] Stop: 01/07/25 16:59 Last Admin: 12/09/24 17:50 Dose: 10 mg Documented By: Admin: 12/08/24 16:56 Dose: 10 mg Documented By: JAZMIN Ticagrelor (Ticagrelor 90 Mg Tab) Confirm Administered Dose 180 mg .ROUTE .STK- MED ONE Stop: 12/07/24 12:19 Last Admin: 12/07/24 12:20 Dose: 180 mg Documented By: ELENI Ticagrelor (Ticagrelor 90 Mg Tab) 90 mg PO BID [facility] Stop: 01/06/25 20:59 Last Admin: 12/10/24 08:09 Dose: 90 mg Documented By: jrh Admin: 12/09/24 20:32 Dose: 90 mg Documented By: [id number] Admin: 12/09/24 08:53 Dose: 90 mg Documented By: Admin: 12/08/24 20:06 Dose: 90 mg Documented By: [id number] Admin: 12/08/24 08:58 Dose: 90 mg Documented By: [email or web address] Admin: 12/07/24 20:21 Dose: 90 mg Documented By: ANICETO Discharge Plan Visit Data Chief Complaint: Illness Stated Complaint: TROUBLE BREATHING, COUGH, CHEST PAIN TO L SHOULDER ED Provider: Arash Blunt Discharge Problem: ST elevation (STEMI) myocardial infarction involving right coronary artery Patient Disposition: Admitted As Inpatient Condition: Critical Discharge Instructions Interventions: ED Discharge Assessment Last Done: 12/07/24 12:17
[2024-12-07 12:15] LABS: Hematocrit (blood only) 47.4 % (42.0-52.0); Hemoglobin 15.6 g/dl (14.0-18.0); Immature Granulocytes # (auto) 0.03 K/uL (0.01-0.20); Immature Granulocytes % (auto) 0.2 %; Mean Corpuscular Hemoglobin 28.5 pg (25.0-34.0); Mean Corpuscular Volume 86.7 fL (80.0-100.0); Platelet Count 304 K/uL (130-400); RDW Standard Deviation 45.7 fL (36.4-46.3); Red Blood Count 5.47 M/uL (4.70-6.10); White Blood Count 12.92 K/ul (4.8-10.8)
--- NOTE | 2024-12-07 12:19 | Pre Anesthesia Assessment ---
Date of Service December 07, 2024 Pre Sedation Assessment Vital Signs Temp Pulse Pulse Resp BP BP Pulse Ox 12/07/24 12:10 91 H 18 145/86 H 98 12/07/24 12:04 85 12/07/24 12:00 12/07/24 12:00 12/07/24 11:49 97.5 F L 92 H 20 124/86 93 O2 Del Method 12/07/24 12:10 Room Air 12/07/24 12:04 12/07/24 12:00 Room Air 12/07/24 12:00 Room Air 12/07/24 11:49 Room Air Cardiovascular + regular rate Respiratory + respiratory effort normal Pre-Sedation Airway Assessment Smoking Status: Current every day smoker Hx Sleep Apnea: No Hx Difficult Intubation: No Short, Thick Neck: No Thyromental Distance: > or= 3.5 Finger Breadths Oral Cavity: + Dental Abnormalities Mallampati Class: III ASA: ASA4 Procedure Planning Contraindications for Sedation: none Current Medications Reviewed: Yes Notes The planned sedation has been discussed with the patient. Informed Consent was obtained. I have identified the patient, determined the appropriateness of sedation and have assessed the patient immediately prior to the procedure. All medicine(s) and interventions are by my order.
[2024-12-07] MEDS: TICAGRELOR 90 MG TAB ONE (12:20)
[2024-12-07] MEDS ORDERED: ACETAMINOPHEN 325 MG TAB PO PRN (12:21)
--- NOTE | 2024-12-07 12:21 | Cardiology Consultation ---
Date of Consultation December 07, 2024 Assessment & Plan (1) STEMI (ST elevation myocardial infarction): Presentation consistent with inferior STEMI and recommend proceeding with emergent cardiac catheterization and likely primary PCI. No apparent contraindications to procedure. Discussed risks, benefits, alternatives of procedure with patient and they are willing to proceed. Further recommendations pending findings of coronary angiography. History of Present Illness History of Present Illness 58-year-old male here with acute chest pain and ECG concerning for acute PA. Patient seen emergently in the ED after heart alert activated on arrival. Past cardiac history remarkable for inferior STEMI 04/01/2022 treated at [place]. With single AMY to mid RCA. Per report had nonobstructive left system disease. Other medical issues include prior TIA/complicated migraines, severe JOHAN on CPAP, emphysema, hypertension, dyslipidemia, hypothyroidism, class I obesity. Prior ILR with a history of bradycardia/pauses with his JOHAN. Last echo 08/2024: EF 55%, mild LVH, mild MR, PFO. He is an ongoing smoker. Was awoken this morning with new nausea/vomiting and diarrhea. Symptoms persisted into the day causing him to leave work. Later developed severe mid substernal chest pain radiating to his left shoulder with associated diaphoresis. Pain reminiscent of symptoms with his prior PA. Chest pain for approximately 1 to 2 hours prior to arrival. Severe ongoing chest pain at time of arrival to bedside. Hemodynamically stable. EKG showed sinus rhythm with inferior ST elevations. Allergies Allergy/AdvReac Type Severity Reaction Status Date / Time levothyroxine sodium Allergy Intermediate Hives Verified 11/17/24 09:14 [From Synthroid] Home Medications Medication Instructions Recorded Confirmed Type aspirin 81 mg tablet,delayed 81 mg PO DAILY 04/13/22 12/07/24 History release albuterol sulfate 90 mcg/actuation 2 inh inhalation QID PRN shortness 12/29/23 12/07/24 Rx aerosol inhaler of breath or wheezing #8.5 grams CPAP Machine #1 ea 06/20/24 11/17/24 Rx furosemide 20 mg tablet (Lasix) 20 mg PO DAILY PRN Fluid Retention 10/05/24 12/07/24 History levothyroxine 175 mcg capsule 175 mcg PO DAILY #30 caps 10/31/24 12/07/24 Rx atenolol 25 mg tablet 0 mg PO DAILY 09/11/25 09/11/25 History Patient History Medical History Left arm weakness Chest pain Asthma Surgical History S/P ureteral stent placement Family History Mother COPD (chronic obstructive pulmonary disease) Father Hypertension Son Kidney disease Sister Diabetes Grandfather (Paternal) Myocardial infarction Grandmother (Paternal) Myocardial infarction Denies family history of Ovarian cancer Prostate cancer Breast cancer Colorectal cancer Social History Smoking Status: Current every day smoker Tobacco Type: Cigarettes Age Started Using Tobacco: 14; packs per day: 0.5; Cigarettes Per Day: 15; Second Hand Exposure: Yes; Do You Dip or Chew Tobacco: No; Tobacco Cessation Education Requested by Patient: No Hx Alcohol Use: No Hx Substance Use: No Preferred Language: Yoruba Communication Ability: Effective Visual Impairment: No Limitations Hearing Ability: Normal 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 Beliefs That Will Affect Care: None marital status: Single Current Living Situation: Family and Significant Other current occupational status: employed 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 [employer] How many Children do You have: 1 Other Information That Helps Us Care for You: No Feels Safe at Home: Yes Safety Concerns: Feels Safe At This Time Childhood Exposure to Second-Hand Smoke: Yes Diet: regular caffeine: Yes during the past year weight has: remained stable Dental Care, Regularly: No Physical Activity Frequency: Daily Seatbelt Use: always Sunscreen Use: Yes Assistive Devices: CPAP and Glasses Review of Systems Review of Systems: All systems reviewed & are unremarkable except as noted in HPI & below Physical Exam Physical Exam: General: Uncomfortable HEENT: Sclerae anicteric Lungs: Clear anteriorly Cardiac: Regular rate and rhythm, no murmurs. Vascular: 2+ radial Abdomen: Soft, nontender Extremities: Well perfused, no peripheral edema Neuro: Nonfocal Psych: Alert orient x3 Results & Data Vital Signs (Past 12 Hours) Vital Signs Temp Pulse Pulse Resp BP BP Pulse Ox 12/07/24 12:10 91 H 18 145/86 H 98 12/07/24 12:04 85 12/07/24 12:00 12/07/24 12:00 12/07/24 11:49 97.5 F L 92 H 20 124/86 93 O2 Del Method 12/07/24 12:10 Room Air 12/07/24 12:04 12/07/24 12:00 Room Air 12/07/24 12:00 Room Air 12/07/24 11:49 Room Air PG Care Time/CCT Total # of Minutes Spent Total Time Spent with Patient: Total time spent is greater than 50% in coordination of care (as documented) at patient's floor/unit and/or counseling patient: Coding Level of Care Code 00426 OFFICE CONSULT LVL Diagnoses STEMI (ST elevation myocardial infarction) I21.3
[2024-12-07 12:25] LABS: INR 1.0 (0.9-1.1); Partial Thromboplastin Time 27 Seconds (21-31); Prothrombin Time 10.6 Seconds (9.0-12.0)
[2024-12-07 12:33] LABS: Alanine Aminotransferase 13.0 U/L (7-52); Albumin Globulin Ratio 0.9 (0.9-2); Alkaline Phosphatase 63.0 U/L (34-104); Anion Gap 6.0 (3-11); Bilirubin,Total 0.5 mg/dl (0.2-1.0); Blood Urea Nitrogen 21.0 mg/dl (6-23); Calcium 9.1 mg/dl (8.6-10.3); Carbon Dioxide 27.0 mmol/L (21-32); Chloride 105.0 mmol/L (98-107); Creatine Kinase 49.0 U/L (30-223); Creatinine Clr Calc Pharmacy 100.1 ml/min; Globulin 4.3 gm/dl (2.5-4.0); Glucose 130.0 mg/dl (70-99(Fasting)); Lipase 18.0 U/L (11-82); Magnesium 1.9 mg/dl (1.7-2.4); Potassium 4.2 mmol/L (3.5-5.1); Sodium 138.0 mmol/L (136-145); Total Protein 8.1 gm/dl (6.0-8.3)
--- NOTE | 2024-12-07 12:36 | History & Physical Report ---
Date of Service December 07, 2024 Assessment & Plan (1) STEMI (ST elevation myocardial infarction): Plan: Assessment: 1. Acute inferior wall ST elevation myocardial infarction. The patient's has been treated appropriately from medical standpoint in the ER and is currently in the heart catheterization lab undergoing percutaneous heart catheter he is not with anticipation for percutaneous intervention. I spoke personally with Dr. Smith at the bedside. Cardiac relative orders will be per cardiology post cath. Echocardiograms been ordered for the morning. Laboratory studies are still pending from the ER. 2. Coronary artery disease status post PCI to the right coronary artery some years ago. 3. Obstructive sleep apnea. We have ordered home CPAP. 4. Ongoing tobacco abuse in the form of smoking cigarettes 1 pack of cigarettes per day. 5. Hypothyroidism. Continue home medications. Plan: As discussed above. Please refer to orders for further planning. Tentative plan is for the patient to go to the ICU post heart cath. I did contact critical care provider for consultation post cath. History of Present Illness Chief Complaint: Chest pain Primary Care Provider: Himanshu Parry, This is a pleasant 58-year-old male who woke up today with some nausea and vomiting. Throughout the day his nausea and vomiting evolved into mid substernal chest pain going to the left shoulder/upper extremity region. He became diaphoretic while at work with this chest pain presented to the ER for further evaluation and treatment. Stat EKG demonstrated acute inferior wall ST elevation myocardial infarction. Heart alert was called overhead. Hospitalist group was contacted for admission. Hemodynamically the patient is currently stable. Blood pressure 145/86, pulse 91, respirations 18, afebrile, pulse ox 98% on room air. We did evaluate the patient at the bedside as discussed below. His laboratory studies are pending. He did discuss with interventional cardiology Dr. Smith at the bedside as well. Allergies Allergy/AdvReac Type Severity Reaction Status Date / Time levothyroxine sodium Allergy Intermediate Hives Verified 11/17/24 09:14 [From Synthroid] Home Medications Medication Instructions Recorded Confirmed Type aspirin 81 mg tablet,delayed 81 mg PO DAILY 04/13/22 12/07/24 History release albuterol sulfate 90 mcg/actuation 2 inh inhalation QID PRN shortness 12/29/23 12/07/24 Rx aerosol inhaler of breath or wheezing #8.5 grams CPAP Machine #1 ea 06/20/24 11/17/24 Rx furosemide 20 mg tablet (Lasix) 20 mg PO DAILY PRN Fluid Retention 10/05/24 12/07/24 History levothyroxine 175 mcg capsule 175 mcg PO DAILY #30 caps 10/31/24 12/07/24 Rx atenolol 25 mg tablet 0 mg PO DAILY 12/07/24 12/07/24 History Past Med/Surg History Problem List (Updated 12/07/24 @ 12:33 by Colton Galvan, PhD, DO) STEMI (ST elevation myocardial infarction) Alveolar emphysema of lung Pulmonary nodule Mediastinal lymphadenopathy Skin lesion of cheek Prediabetes Complicated migraine Precordial chest pain (Acute) Nocturnal hypoxemia Severe obstructive sleep apnea History of loop recorder Sinus pause Tachycardia Bradycardia Coronary artery disease Tobacco abuse Dyslipidemia PAC (premature atrial contraction) Hypothyroid Palpitations Vertigo (Chronic) Hematuria (Acute) Medical History Left arm weakness Chest pain Asthma Surgical History S/P ureteral stent placement Family History Mother COPD (chronic obstructive pulmonary disease) Father Hypertension Son Kidney disease Sister Diabetes Grandfather (Paternal) Myocardial infarction Grandmother (Paternal) Myocardial infarction Denies family history of Ovarian cancer Prostate cancer Breast cancer Colorectal cancer Social History Smoking Status: Current every day smoker Tobacco Type: Cigarettes Age Started Using Tobacco: 14; packs per day: 0.5; Cigarettes Per Day: 15; Second Hand Exposure: Yes; Do You Dip or Chew Tobacco: No; Hx Alcohol Use: No Hx Substance Use: No Preferred Language: Gabonese Communication Ability: Effective Visual Impairment: No Limitations Hearing Ability: Normal Electrical Parts Reconditioner Required: No Beliefs That Will Affect Care: None marital status: Single Current Living Situation: Significant Other current occupational status: employed 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 Physical Exam Physical Exam: In General: In general is a 58-year-old male who is alert and oriented x 3 at th e time of examination. He is accompanied by his significant other at the bedside. He is in mild to moderate distress with his chest discomfort mildly diaphoretic and tachypneic. 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 He reports that he had a stent placed in his heart years ago -appears to be in the right coronary artery. HEENT: Normocephalic atraumatic pupils are equal round and reactive to light bilaterally. No scleral icterus no conjunctival injection external auditory canals are patent septum is in the midline nose is without discharge oral mucosa is pink and moist without lesion. NECK: Supple no rigidity no lymphadenopathy no thyromegaly no carotid bruits no JVD no masses. HEART: Regular rate and rhythm I do not appreciate any ectopy or rub. No murmur. LUNGS: Breath sounds are distant due to poor inspiratory effort due to his acute chest pain however appear to be relatively clear to auscultation bilaterally and anteriorly with no evidence of adventitious sounds/wheezes rales or rhonchi. ABDOMEN: Soft nontender, no rebound, no peritoneal signs, positive bowel sounds, no appreciable organomegaly. EXTREMITIES: Intact, no peripheral cyanosis, clubbing or edema. Strength is 5 out of 5 in extremities x4. NEUROLOGICAL: Cranial nerves II through XII are grossly intact with no focal deficit elicited upon examination. Results & Data Results & Data Vital Signs (Past 12 Hours) Vital Signs Temp Pulse Pulse Resp BP BP Pulse Ox 12/07/24 12:10 91 H 18 145/86 H 98 12/07/24 12:04 85 12/07/24 12:00 12/07/24 12:00 12/07/24 11:49 36.4 C L 92 H 20 124/86 93 O2 Del Method 12/07/24 12:10 Room Air 12/07/24 12:04 12/07/24 12:00 Room Air 12/07/24 12:00 Room Air 12/07/24 11:49 Room Air Code Status & VTE Plan Code Status Full code. Discussed with patient at bedside. Initially he was hesitant girish puckett when he had his last myocardial infarction he required defibrillation and it caused some significant discomfort at that time. However does consent to full code given his current situation. VTE Prophylaxis Plan VTE Prophylaxis will be ordered: Yes PG Care Time/CCT Total # of Minutes Spent Total Time Spent with Patient: Total time spent is greater than 50% in coordination of care (as documented) at patient's floor/unit and/or counseling patient: Coding Level of Care Code 64855 INT INP/OBS CARE 3/75MIN Diagnoses STEMI (ST elevation myocardial infarction) I21.3
[2024-12-07 12:48] LABS: Thyroid Stimulating Hormone 3.454 uIu/ml (0.300-4.500)
[2024-12-07] MEDS: MIDAZOLAM HCL 1 MG/ML 2ML VIAL ONE (13:21)
[2024-12-07] MEDS: HEPARIN (PORCINE) 1000 UNIT/ML 10 ML (CATH LAB USE ONLY) ONE ×2 (13:21→13:24)
--- NOTE | 2024-12-07 13:22 | Post Anesthesia Assessment ---
Date of Service December 07, 2024 Post Sedation Assessment Vital Signs Temp Pulse Pulse Resp BP BP Pulse Ox 12/07/24 12:10 91 H 18 145/86 H 98 12/07/24 12:04 85 12/07/24 12:00 12/07/24 12:00 12/07/24 11:49 97.5 F L 92 H 20 124/86 93 O2 Del Method 12/07/24 12:10 Room Air 12/07/24 12:04 12/07/24 12:00 Room Air 12/07/24 12:00 Room Air 12/07/24 11:49 Room Air Recovery Score Activity: Moves 4 extremities Respiration: Deep Breath/Cough Circulation: +/-20% PreAnes Value Consciousness: Fully Awake Oxygen Saturation: O2 needed for >90% Discharge Sedation Level of Care: Fast Track Phase II
[2024-12-07] MEDS: OPTIRAY 350 ONE (13:23)
[2024-12-07] MEDS: NITROGLYCERIN/D5W 100MCG/ML 20ML SYR ONE (13:23)
[2024-12-07] MEDS: niCARdipine 2,000 MCG/20 ML SYR ONE (13:23)
[2024-12-07] MEDS: IODIXANOL (VISIPAQUE) 320 MG/ML 100ML IV ONE (13:23)
[2024-12-07] MEDS: AMIODARONE 150MG / 100ML D5W (CATH LAB USE ONLY) IV ONE (13:24)
[2024-12-07] MEDS: MAG SULFATE 50% 1GM/2ML VIAL IV ONE (13:24)
[2024-12-07] MEDS: AMIODARONE 360MG / 200ML D5W (CATH LAB USE ONLY) IV ONE (13:24)
[2024-12-07] MEDS ORDERED: ONDANSETRON INJ 2 MG/ML 2 ML VIAL IV PRN (13:24)
[2024-12-07] MEDS ORDERED: 0.2 MICRON FILTER SET 1 EACH IV ONE (13:24)
--- NOTE | 2024-12-07 13:24 | Post Operative Brief Note ---
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 Loaded with amiodarone, magnesium Post procedure hemodynamically stable, awake with minimal residual chest pain. Complications none Disposition Disposition: Surgical ICU
[2024-12-07] MEDS ORDERED: ALBUTEROL HFA 8 GM INHALER INH PRN (14:25)
--- NOTE | 2024-12-07 14:25 | Critical Care Consultation ---
Date of Consultation December 07, 2024 Assessment & Plan (1) STEMI (ST elevation myocardial infarction): (2) Alveolar emphysema of lung: (3) Mediastinal lymphadenopathy: (4) Tobacco abuse: (5) Coronary artery disease: (6) Nocturnal hypoxemia: Plan Edmundo Boo is a 58-year-old male with past medical history of current everyday smoker with 60 pack year history, asthma, COPD GOLD A, severe obstructive sleep apnea on auto CPAP, coronary artery disease w/ past stent to RCA, hypothyroidism, HLD, renal calculi, mediastinal lymphadenopathy followed by Dr. Adame from [place] [facility]; who presented to [facility] on 12/07/2024 with nausea, vomiting, and substernal chest pain. Patient found to have STEMI in the inferior leads and went emergently to the film laboratory technician for PCI and AMY to a 100% occluded prior RCA stent. Patient had 2 episodes of V-fib requiring defibrillation and amio bolus with gtt. Neurologic: -No acute issues -Monitor -Tylenol for pain Pulmonary: GOLD A COPD; Asthma; mediastinal lymphadenopathy; Severe JOHAN -Albuterol ordered. (Uses PRN albuterol at home no other inhalers) -Will order CPAP qhs while inpatient uses auto CPAP at home -Plan for outpatient CT in 6 months for mediastinal lymphadenopathy -maintain SpO2 > 92% Tobacco use; current everyday smoker -Smoking cessation discussed with patient. Resources offered. Cardiovascular: CAD w/ stent to RCA in past; Acute inferior wall STEMI with AMY to RCA; V-fib -Cont amiodarone gtt -Continue asa and Brilinta -Start metoprolol -Start atorvastatin -Start lisinopril -TTE pending -Post cath EKG shows mild ST elevation in inferior leads. Chest pain improved. Monitor Gastrointestinal: -No acute issues -Advance diet as tolerated. Renal: -Voiding -Monitor renal function in am Infectious disease: -No acute issues -Afebrile -Complaining of nasal congestion Hematologic: -Monitor CBC in am Endocrine: -Maintain euglycemia. Hypothyroidism -Continue Levothyroxine Lines and tubes: PIV VTE prophylaxis: -Hold DVT prophylaxis at this time. Consider starting in am. -SCD for mechanical DVT prophylaxis -GI prophylaxis with Protonix CODE STATUS: Full Family at bedside: at bedside and updated to POC Disposition: ICU I have personally spent 46 minutes of critical care time in the direct management of this patient. This is a life/limb threatening event. This includes time spent evaluating patient, direct bedside care, chart review, placing orders, interpretation of diagnostic studies, discussion with consultants, patient, and family members, as well as other required patient management activities. This time is exclusive of all separately billable procedures, and teaching time and separate from and in addition to any other critical care service time. Supervising Physician Co-Signing Physician Notes Patient separately examined per MILAGRO. Agree with the notes as above. Patient right totally asymptomatic at this time. Remains on amiodarone due to VF during catheterization. Single drug-eluting stent to the RCA placed after restent thrombosis noted by cardiology. Continue dual antiplatelets. Continue beta-blockade, statin and JASVIR inhibitor. Continue Synthroid for history of hypothyroidism. TSH checked today is unremarkable. Patient likely stable for downgrade tomorrow. History of Present Illness Reason for Consultation: STEMI s/p AMY to RCA Attending Physician: Colton Galvan, PhD, DO History of Present Illness Edmundo Boo is a 58-year-old male with past medical history of current everyday smoker with 60 pack year history, asthma, COPD GOLD A, severe obstructive sleep apnea on auto CPAP, coronary artery disease w/ past stent to RCA, hypothyroidism, HLD, renal calculi, mediastinal lymphadenopathy followed by Dr. Adame from [facility]; who presented to [facility] on 12/07/2024 with nausea, vomiting, and substernal chest pain. Patient states that we awoke his am with nausea and vomiting and attempted to go to work. He made it about an hour and returned home around 0615. He though he had a stomach bug and went to sleep and woke up around 1100 with supsteral chest pain which prompted him to come to [facility] ED. EKG showed ST elevations in the inferior leads consis tent with RCA infarction. Patient was taken emergently to the film laboratory technician where there was a 100% reocclusion of a prior RCA stent was noted. The patient had intravascular lithotripsy and AMY to RCA. Patient did have two episodes of V-fib requiring defibrillation x 2 and amiodarone bolus + gtt. He was brought to the ICU post cath for continued evaluation and management of an inferior wall STEMI s/p PCI and arrhythmia with high risk for decline. Allergies Allergy/AdvReac Type Severity Reaction Status Date / Time levothyroxine sodium Allergy Intermediate Hives Verified 11/17/24 09:14 [From Synthroid] Home Medications Medication Instructions Recorded Confirmed Type aspirin 81 mg tablet,delayed 81 mg PO DAILY 04/13/22 12/07/24 History release albuterol sulfate 90 mcg/actuation 2 inh inhalation QID PRN shortness 12/29/23 12/07/24 Rx aerosol inhaler of breath or wheezing #8.5 grams CPAP Machine #1 ea 06/20/24 11/17/24 Rx furosemide 20 mg tablet (Lasix) 20 mg PO DAILY PRN Fluid Retention 10/05/24 12/07/24 History levothyroxine 175 mcg capsule 175 mcg PO DAILY #30 caps 10/31/24 12/07/24 Rx atenolol 25 mg tablet 0 mg PO DAILY 12/07/24 12/07/24 History Patient History Medical History Left arm weakness Chest pain Asthma Surgical History S/P ureteral stent placement Family History Mother COPD (chronic obstructive pulmonary disease) Father Hypertension Son Kidney disease Sister Diabetes Grandfather (Paternal) Myocardial infarction Grandmother (Paternal) Myocardial infarction Denies family history of Ovarian cancer Prostate cancer Breast cancer Colorectal cancer Social History Smoking Status: Current every day smoker Tobacco Type: Cigarettes Age Started Using Tobacco: 14; packs per day: 0.5; Cigarettes Per Day: 15; Second Hand Exposure: Yes; Do You Dip or Chew Tobacco: No; Hx Alcohol Use: No Hx Substance Use: No Preferred Language: [place] Communication Ability: Effective Visual Impairment: No Limitations Hearing Ability: Normal Engraver Ornamental Design Required: No Beliefs That Will Affect Care: None marital status: Single Current Living Situation: Significant Other current occupational status: employed 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 WEIGHT/BMI reviewed. GEN: Stated age appearing, well-developed, NAD. PSYCH: Good Judgment. AOx3. Normal memory, mood, and affect. HEENT -Head: NC/AT; -Eyes: PERRL, EOMI. No discharge or redn ess; -Nose: Normal nares. NECK: Supple, with no masses. CV: RRR, no m/r/g. LUNGS: CTAB, no w/r/c. ABD: Soft, NT/ND, NBS, no masses or organomegaly. : Patient voiding SKIN: Warm, well perfused. No skin rashes or abnormal lesions. MSK: No deformities, Normal gait. EXT: No clubbing, cyanosis, or edema. NEURO: Normal muscle strength and tone. No focal deficits. Results & Data Results & Data Vital Signs (Past 12 Hours) Vital Signs Temp Pulse Pulse Resp BP BP Pulse Ox 12/07/24 12:10 91 H 18 145/86 H 98 12/07/24 12:04 85 12/07/24 12:00 12/07/24 12:00 12/07/24 11:49 36.4 C L 92 H 20 124/86 93 O2 Del Method 12/07/24 12:10 Room Air 12/07/24 12:04 12/07/24 12:00 Room Air 12/07/24 12:00 Room Air 12/07/24 11:49 Room Air Critical Care Results & Data Vital Signs (Past 12 Hours) Vital Signs Temp Pulse Pulse Resp BP BP Pulse Ox 12/07/24 12:10 91 H 18 145/86 H 98 12/07/24 12:04 85 12/07/24 12:00 12/07/24 12:00 12/07/24 11:49 36.4 C L 92 H 20 124/86 93 O2 Del Method 12/07/24 12:10 Room Air 12/07/24 12:04 12/07/24 12:00 Room Air 12/07/24 12:00 Room Air 12/07/24 11:49 Room Air Lab & Micro Results (Past 24 Hours) RBC 5.47 M/uL (4.70-6.10) 12/07/24 WBC 12.92 K/ul (4.8-10.8) H 12/07/24 Hgb 15.6 g/dl (14.0-18.0) 12/07/24 Hct 47.4 % (42.0-52.0) 12/07/24 MCV 86.7 fL (80.0-100.0) 12/07/24 MCH 28.5 pg (25.0-34.0) 12/07/24 MCHC 32.9 g/dL (32.0-36.0) 12/07/24 RDW Standard Deviation 45.7 fL (36.4-46.3) 12/07/24 RDW Coefficient of Variation 14.4 % (11.5-14.5) 12/07/24 Plt Count 304 K/uL (130-400) 12/07/24 MPV 10.2 fL (9.4-12.4) 12/07/24 Neutrophils (%) (Auto) 73.8 % 12/07/24 Lymphocytes (%) (Auto) 14.9 % 12/07/24 Monocytes # (Auto) 1.13 K/uL (0.11-0.59) H 12/07/24 Eosinophils # (Auto) 0.24 K/uL (0.00-0.50) 12/07/24 Immature Granulocyte % (Auto) 0.2 % 12/07/24 Neutrophils # (Auto) 9.53 K/uL (1.40-6.50) H 12/07/24 Lymphocytes # (Auto) 1.93 K/uL (1.20-3.40) 12/07/24 Monocytes # (Auto) 1.13 K/uL (0.11-0.59) H 12/07/24 Eosinophils # (Auto) 0.24 K/uL (0.00-0.50) 12/07/24 Basophils # (Auto) 0.06 K/uL (0.00-0.20) 12/07/24 Immature Granulocyte # (Auto) 0.03 K/uL (0.01-0.20) 5 Na 138 mmol/L (136-145) 12/07/24 K 4.2 mmol/L (3.5-5.1) 12/07/24 Cl 105 mmol/L (98-107) 12/07/24 CO2 27 mmol/L (21-32) 12/07/24 Anion Gap 6 (3-11) 12/07/24 BUN 21 mg/dl (6-23) 12/07/24 Creatinine 0.89 mg/dl (0.6-1.4) 12/07/24 BUN/Creatinine Ratio 23.6 (10-20) H 12/07/24 Glu 130 mg/dl (70-99(Fasting)) H 12/07/24 Ca 9.1 mg/dl (8.6-10.3) 12/07/24 Total Bilirubin 0.5 mg/dl (0.2-1.0) 12/07/24 AST 12 U/L (13-39) L 12/07/24 ALT 13 U/L (7-52) 12/07/24 Alkaline Phosphatase 63 U/L (34-104) 12/07/24 TP 8.1 gm/dl (6.0-8.3) 12/07/24 Albumin 3.8 gm/dl (3.4-5.0) 12/07/24 Globulin 4.3 gm/dl (2.5-4.0) H 12/07/24 Albumin/Globulin Ratio 0.9 (0.9-2) 12/07/24 Mg 1.9 mg/dl (1.7-2.4) 12/07/24 12:04 Calcium Level 9.1 mg/dl (8.6-10.3) 12/07/24 12:04 Prothromb Time International Ratio 1.0 (0.9-1.1) 12/07/24 12:0 4 RT Ventilator Mngmt (Last Documented) Ventilator Ordered Settings Respiratory Rate 18 12/07/24 12:10 Ventilator - PT Measurements Respiratory Rate 18 Coding Level of Care Code 42445 CRITICAL CARE 1ST 30-74M Diagnoses STEMI (ST elevation myocardial infarction) I21.3 Alveolar emphysema of lung J43.1 Mediastinal lymphadenopathy R59.0 Tobacco abuse Z72.0 Coronary artery disease I25.10 Nocturnal hypoxemia G47.34
[2024-12-07] MEDS: METOPROLOL TARTRATE 25 MG TAB PO SCH (14:33)
[2024-12-07] MEDS: AMIODARONE / D5W 360 MG/200 ML BAG IV ONE (14:37)
[2024-12-07 15:49] LABS: Chlamydia pneumoniae PCR Not Detected (NotDetected); Coronavirus 229E PCR Not Detected (NotDetected); Coronavirus CoV-2 (COVID19)PCR Not Detected (NotDetected); Coronavirus HKU1 PCR Not Detected (NotDetected); Coronavirus NL63 PCR Not Detected (NotDetected); Coronavirus OC43PCR Not Detected (NotDetected); Human Metapneumovirus PCR Not Detected (NotDetected); Parainfluenza Virus 1 PCR Not Detected (NotDetected); Parainfluenza Virus 2 PCR Not Detected (NotDetected); Parainfluenza Virus 3 PCR Not Detected (NotDetected); Parainfluenza Virus 4 PCR Not Detected (NotDetected); Respiratory Syncytial VirusPCR Not Detected (NotDetected); Rhinovirus/Enterovirus PCR Not Detected (NotDetected)
[2024-12-07] MEDS: AMIODARONE / D5W 360 MG/200 ML BAG IV SCH (19:18)
[2024-12-07] MEDS: TICAGRELOR 90 MG TAB PO SCH (20:21)
--- NOTE | 2024-12-07 23:37 | Cardiac Catheterization ---
[facility] Data: Retort Firer Cardiac Status Clinical evaluation leading to the procedure CAD Presenation: STEMI Anginal Classification: CCS IV Diagnostic Physicians Name: Yan Smith MD Closure Device Recommendations: PCI without planned CABG Cardiac Cath Procedure Full Procedure Date December 07, 2024 Pre-Procedure Diagnosis Pre-Procedure Diagnosis: STEMI AUC Score AUC Score: 9 Post-Procedure Diagnosis Post-Procedure Diagnosis: Severe CAD, Successful PCI and Normal Intracardiac Pressures Procedure(s) Performed Procedure(s) Performed: Coronary Angiography, Left Heart Cath, Drug Eluting Stent, IVUS and Procedure (Intravascular lithotripsy) Motor Vehicle Field Representative Yan Smith MD Supervisor Continuous [employer](s) Maximus Estimated Blood Loss Estimated Blood Loss: 25 Medication(s) Medication(s): Fentanyl, Heparin, Lidocaine 1%, Nicardipine, Nitroglycerin and Versed Medication(s): Ticagrelor Summary of Findings Indication: STEMI/Heart Alert Access: 6 Fr right radial artery Catheters: Raphine, JR4 guide Findings: LM -normal caliber, 20-30% distal stenosis just before bifurcation LAD -medium caliber, proximal segment ectatic, 40% stenosis just after first diagonal, remainder of vessel without significant disease and extends apex. Medium D2 trifurcates but without significant disease. Circumflex -30% ostial, proximal segment ectatic, mid to distal vessel with luminal irregularities. Medium OM1, OM2 tortuous without significant disease RCA -dominant, large caliber, 100% acute mid RCA in-stent thrombosis. LVEDP -11 -- PCI -- Antithrombotic therapy: Heparin, ticagrelor Procedure: RCA cannulated with JR4 guide BMW wire passed across lesion into distal vessel Mid RCA lesion predilated with 2.5 compliant balloon [employer] IVUS catheter placed to distal RCA. No apparent edge pathology. Diffuse thrombus with some in-stent restenosis at distal portion of stent. In mid portion of stent appeared to be possibly underexpanded but was well apposed. Proximal edge of stent without disease. No significant disease in remainder of RCA. Stent postdilated with 4.0 NC balloon. Only partial expansion with "watermelon seeding" of balloon and distal aspect of prior stent Stent further dilated/treated with intravascular lithotripsy (4.0 balloon, shockwave, 60 pulses). New AMY placed overlapping majority of prior stent (4.0 x 38 mm Duane). Stent post-dilated with 4.5 noncompliant balloon IC vasodilators administered for spasm Post procedure KRISTY 3 flow, stent well expanded with minimal residual stenosis and no apparent cardiac complications. After initial stent placement patient developed VF that was treated with single defibrillation at 200 J before ROSC. Loaded with amiodarone. After post dilation of new stent again had second episode of VF treated with single defibrillation at 200 J with ROSC. Received additional magnesium. Post defibrillation hemodynamically stable. Awake and maintaining O2 sats. Arterial Closure: TR band Summary: 1. Inferior STEMI/acute 100% mid RCA stent thrombosis (very lateprior stent 03/2022). 2. Mild to moderate non-culprit coronary artery disease - 20-30% distal left main 40% earlymid LAD 30% ostial circumflex 3. Normal intracardiac filling pressure 4. Successful PCI of mid RCA in-stent thrombosis with intravascular lithotripsy and new overlapping drug-eluting stent (4.0 x 38 mm [place]; postdilated with 4.5 NC). Recommendations: Admit to ICU for continued monitoring Loaded with ticagrelor 180 mg in Retort Firer Recommend extended DAPT and likely indefinite P2Y12 inhibitor after stent thrombosis Trend troponins until peak, Check Echo Uptitrate beta-jaron/JASVIR as BP allows High-dose statin Smoking cessation Hemodynamics Rest Ao:: 140/72/95 Final Ao: 115/63/86 LV: 114/11 Recommendations Recommendations: PCI without planned CABG Radiation Exposure (mGy) 2249 Contrast (mls) 50 Anesthesia Moderate 3012-8782 Procedural Complication(s) None Disposition Retort Firer Holding/Recovery I attest to the content of the Intraoperative Record and any orders documented therein. Any exceptions are noted below. [facility] Card Cath Procedure Codes Cardiac Catheterization Procedure 1: Cardiovascular Cath Procedures: 62960 Coronaries and LHC (+/-LV) Therapeutic Services & Ancillary Procedure 1: Cardiovascular Tx and Anc Procedures: 18869 IV Ultrasound (Coronary or Graft) Moderate Sedation Procedure 1: Sedation/Anesthesia: 43721 Mod Sedation by the same physician;Init15 Min Child Age 5 & Up Procedure 2: Sedation/Anesthesia: 36429 Mod Sedation by the same physician; Ea [id number] Minutes Angioplasty Procedure 1: Cardiovascular Angioplasty Procedures: 55699 Perq Trluml Coronry Lithotrp Stenting Procedure 1: Cardiovascular Stent Procedures: 99505 Perc transluminal revascularization of acute sub/total occl, aMI PG Care Time/CCT Total # of Minutes Spent Total Time Spent with Patient: Total time spent is greater than 50% in coordination of care (as documented) at patient's floor/unit and/or counseling patient:
--- NOTE | 2024-12-08 01:02 | XCELERA ---
[id number]
[2024-12-08 05:41] LABS: Hematocrit (blood only) 43.5 % (42.0-52.0); Hemoglobin 14.3 g/dl (14.0-18.0); Immature Granulocytes # (auto) 0.04 K/uL (0.01-0.20); Immature Granulocytes % (auto) 0.4 %; Mean Corpuscular Hemoglobin 28.3 pg (25.0-34.0); Mean Corpuscular Volume 86.0 fL (80.0-100.0); Platelet Count 279 K/uL (130-400); RDW Standard Deviation 44.7 fL (36.4-46.3); Red Blood Count 5.06 M/uL (4.70-6.10); White Blood Count 10.61 K/ul (4.8-10.8)
[2024-12-08 05:56] LABS: Alanine Aminotransferase 18.0 U/L (7-52); Albumin Globulin Ratio 1.0 (0.9-2); Alkaline Phosphatase 54.0 U/L (34-104); Anion Gap 5.0 (3-11); Bilirubin,Total 0.4 mg/dl (0.2-1.0); Blood Urea Nitrogen 11.0 mg/dl (6-23); Calcium 8.7 mg/dl (8.6-10.3); Carbon Dioxide 23.0 mmol/L (21-32); Chloride 106.0 mmol/L (98-107); Cholesterol 163.0 mg/dl (0-200); Creatinine Clr Calc Pharmacy 132.5 ml/min; Globulin 3.7 gm/dl (2.5-4.0); Glucose 130.0 mg/dl (70-99(Fasting)); HDL Cholesterol 41.0 mg/dl; Magnesium 2.1 mg/dl (1.7-2.4); Potassium 4.0 mmol/L (3.5-5.1); Sodium 134.0 mmol/L (136-145); Total Protein 7.3 gm/dl (6.0-8.3); Triglycerides 135.0 mg/dl (0-150)
[2024-12-08] MEDS: LEVOTHYROXINE SODIUM 175 MCG TABLET PO SCH (06:13)
[2024-12-08] MEDS: ASPIRIN 81 MG ECTAB PO SCH (08:56)
[2024-12-08] MEDS: ATORVASTATIN 40 MG TAB PO SCH (08:57)
[2024-12-08] MEDS ORDERED: ASPIRIN 81 MG ECTAB PO SCH (09:00)
[2024-12-08] MEDS ORDERED: ATENOLOL 25 MG TABLET PO SCH (09:00)
--- NOTE | 2024-12-08 10:10 | Critical Care Progress Note ---
Date of Service December 08, 2024 Assessment & Plan (1) STEMI (ST elevation myocardial infarction): (2) Alveolar emphysema of lung: (3) Mediastinal lymphadenopathy: (4) Tobacco abuse: (5) Coronary artery disease: (6) Nocturnal hypoxemia: Plan Edmudno Boo is a 58-year-old male with past medical history of current everyday smoker with 60 pack year history, asthma, COPD GOLD A, severe obstructive sleep apnea on auto CPAP, coronary artery disease w/ past stent to RCA, hypothyroidism, HLD, renal calculi, mediastinal lymphadenopathy followed by Dr. Adame from [place] [facility]; who presented to [facility] on 12/07/2024 with nausea, vomiting, and substernal chest pain. Patient found to have STEMI in the inferior leads and went emergently to the quality assurance lab technician for PCI and AMY to a 100% occluded prior RCA stent. Patient had 2 episodes of V-fib requiring defibrillation and amio bolus with gtt. Neurologic: -No acute issues -Monitor -Tylenol for pain Pulmonary: GOLD A COPD; Asthma; mediastinal lymphadenopathy; Severe JOHAN -Albuterol ordered. (Uses PRN albuterol at home no other inhalers) -CPAP nightly for history of JOHAN. -Plan for outpatient CT in 6 months for mediastinal lymphadenopathy -maintain SpO2 > 92% Tobacco use; current everyday smoker -Smoking cessation discussed with patient. Resources offered. Cardiovascular: CAD w/ stent to RCA in past; Acute inferior wall STEMI with AMY to RCA; V-fib -Cont amiodarone gtt -Continue asa and Brilinta - Continue metoprolol -Patient unwilling to try statins as he notes significant diarrhea in the past. Will need further discussion with cardiology. May be can consider Repatha as an outpatient. -Continue lisinopril -TTE 12/08/2024 with an LVEF of 55 to 60%. Positive interatrial arterial shunt noted. Mild inferior, inferior lateral wall hypokinesis. -Post cath EKG shows mild ST elevation in inferior leads. Chest pain improved. Monitor Gastrointestinal: -No acute issues -Advance diet as tolerated. Renal: -Voiding -Monitor renal function in am Infectious disease: -No acute issues -Afebrile -Complaining of nasal congestion Hematologic: -Monitor CBC in am Endocrine: -Maintain euglycemia. Hypothyroidism -Continue Levothyroxine Lines and tubes: PIV VTE prophylaxis: -Patient mobile in bed. Will hold chemoprophylaxis. -SCD for mechanical DVT prophylaxis -GI prophylaxis with Protonix CODE STATUS: Full Family at bedside: None at bedside currently Disposition: Probable downgrade later today. Admission and Anticipated Discharge Date Admission Date: December 07, 2024 Subjective Patient underwent echo today. No significant issues overnight. Review of Systems Review of Systems: All systems reviewed & are unremarkable except as noted in HPI & below Physical Exam Physical Exam: VITALS: Reviewed. WEIGHT/BMI reviewed. GEN: Stated age appearing, well-developed, NAD. PSYCH: Good Judgment. AOx3. Normal memory, mood, and affect. HEENT -Head: NC/AT; -Eyes: PERRL, EOMI. No discharge or redn ess; -Nose: Normal nares. NECK: Supple, with no masses. CV: RRR, no m/r/g. LUNGS: CTAB, no w/r/c. ABD: Soft, NT/ND, NBS, no masses or organomegaly. : Patient voiding SKIN: Warm, well perfused. No skin rashes or abnormal lesions. MSK: No deformities, Normal gait. EXT: No clubbing, cyanosis, or edema. NEURO: Normal muscle strength and tone. No focal deficits. Results & Data Results & Data Vital Signs (Past 12 Hours) Vital Signs Temp Pulse Resp BP Pulse Ox 12/08/24 09:30 65 16 93 12/08/24 09:12 68 16 94 12/08/24 09:03 72 14 96 12/08/24 09:00 106/71 12/08/24 09:00 106/71 12/08/24 09:00 106/71 12/08/24 08:54 70 19 94 12/08/24 08:00 71 18 94 12/08/24 08:00 95/57 L 12/08/24 08:00 36.8 C 12/08/24 08:00 65 12/08/24 00:42 95/60 L 12/08/24 00:39 76 10 L 93 12/08/24 00:36 62 14 93 12/08/24 00:15 72 22 91 12/08/24 00:06 66 23 94 12/07/24 23:48 64 16 94 12/07/24 23:30 59 L 21 94 12/07/24 23:21 59 L 27 H 94 12/07/24 23:12 65 20 94 12/07/24 23:00 77 12/07/24 22:42 65 22 94 12/07/24 22:33 66 21 93 12/07/24 22:21 62 23 95 12/07/24 22:12 69 22 94 Coding Level of Care Code 46564 SUB INP/OBS CARE 2MIN Diagnoses STEMI (ST elevation myocardial infarction) I21.3 Alveolar emphysema of lung J43.1 Mediastinal lymphadenopathy R59.0 Tobacco abuse Z72.0 Coronary artery disease I25.10 Nocturnal hypoxemia G47.34
--- NOTE | 2024-12-08 14:54 | Hospitalist Progress Note ---
Date of Service December 08, 2024 Assessment & Plan (1) STEMI (ST elevation myocardial infarction): Plan: 58-year-old male with history of tobacco use who presents with a inferior STEMI and was found to have mid RCA thrombosis of an old stent, and is now s/p intrava scular lithotripsy and new overlapping AMY stent placement. He has had resolution of his pain postprocedure Inferior STEMI EKG with inferior STEMI Troponins 3618 on admission, 9135 on repeat, 9190 on second repeat. Minimal delta, suspect has peaked post procedure. Remains chest pain-free S/p cardiac cath. 100% mid RCA stent thrombosis. PCI of mid RCA in-stent thrombosis with intravascular lithotripsy and new overlapping AMY x 1. Continue ticagrelor, aspirin. Patient reportedly willing to try statins. On shared decision making with cardiology anticipate trial of pravastatin 10 mg p.o. daily. Cardiology following. Can discontinue amiodarone. Suspected V-fib was due to reperfusion injury. Will monitor overnight on telemetry Echo with LVEF 55 to 60%. Mild inferior inferior lateral wall hypokinesis. No valvular pathology. Continue lisinopril 5 mg daily, metoprolol 12.5 mg p.o. 3 times daily tartrate as needed and consolidate to succinate on discharge JOHAN Continue CPAP Tobacco abuse Recommend tobacco cessation Hypothyroidism Continue Synthroid DVT prophylaxis: SCDs, ambulate CODE STATUS: Full code Diet: Heart healthy Admission and Anticipated Discharge Date Admission Date: December 07, 2024 Subjective Seen at the bedside. He is sitting up in a chair. He reports he feels "much better" and all of his symptoms have resolved. He denies any chest pain, chest pressure, lightheaded, dizziness, shortness of breath at time of morning visit. He reports his right wrist access site feels well, he has not noticed any pain or swelling. He has been downgraded to PCU status this morning Physical Exam Physical Exam: General: A&Ox3. NAD. Cooperative. HEENT: Atraumatic, normocephalic. Vision and hearing grossly intact Pulm: CTAB A&P. -wheezes, -rales, -rhonchi. Symmetrical chest rise. No increase in work of breathing. No respiratory distress. Cardiac: RRR, -mrg. Radial pulses intact and symmetrical. Abdominal: Nontender, nondistended, soft. BS present. Extremities: No pitting edema. Right radial access site C/C/I with overlying piece of gauze. No hematoma is present. Cap refill in the thumb is brisk sensation in the fingertips is intact. No wrist swelling/hematoma Results & Data Results & Data Vital Signs (Past 12 Hours) Vital Signs Temp Pulse Resp BP Pulse Ox 12/08/24 14:00 61 13 12/08/24 13:00 68 17 91 12/08/24 13:00 99/70 L 12/08/24 12:00 61 23 94 12/08/24 12:00 103/66 12/08/24 11:00 61 20 94 12/08/24 11:00 107/70 12/08/24 11:00 107/70 12/08/24 10:03 66 26 H 92 12/08/24 10:00 108/66 12/08/24 09:36 65 16 95 12/08/24 09:30 65 16 93 12/08/24 09:12 68 16 94 12/08/24 09:03 72 14 96 12/08/24 09:00 106/71 12/08/24 09:00 106/71 12/08/24 09:00 106/71 12/08/24 08:54 70 19 94 12/08/24 08:00 71 18 94 12/08/24 08:00 95/57 L 12/08/24 08:00 36.8 C 12/08/24 08:00 65 PG Care Time/CCT Total # of Minutes Spent Total Time Spent with Patient: Total time spent is greater than 50% in coordination of care (as documented) at patient's floor/unit and/or counseling patient: Coding Level of Care Code 52182 SUB INP/OBS CARE 3/50MIN Diagnoses STEMI (ST elevation myocardial infarction) I21.3
--- NOTE | 2024-12-08 16:23 | Cardiology Progress Note ---
Date of Service December 08, 2024 Assessment & Plan (1) STEMI (ST elevation myocardial infarction): Plan: 2. Post reperfusion VT 3. Tobacco abuse 4. Dyslipidemia 5. JOHAN and CPAP Doing well from a cardiac standpoint. Chest pain free. Hemodynamically and electrically stable. No apparent access site complications. -- Continue DAPT with ASA/Ticagrelor -- Can stop amiodarone now -- Switch metoprolol to 25mg BID. Toprol XL on discharge -- Continue current lisinopril -- Hasn't been able to tolerate statins (atorva, rosuva, simva) in the past due to diarrhea. Willing to try Pravastatin. Has also tried repatha in past. Willing to consider Inclisiran as outpatient. -- Talked about smoking cessation -- Not interested in cardiac rehab From a cardiac standpoint OK with transfer to telemetry today. Possible home tomorrow. Admission and Anticipated Discharge Date Admission Date: December 07, 2024 Subjective Feeling well. No chest pain. No other new symptoms. Review of Systems Review of Systems: All systems reviewed & are unremarkable except as noted in HPI & below Physical Exam Physical Exam: General: Comfortable HEENT: Sclerae anicteric Lungs: Clear anteriorly Cardiac: Regular rate and rhythm, no murmurs. Vascular: 2+ radial Abdomen: Soft, nontender Extremities: Well perfused, no peripheral edema Neuro: Nonfocal Psych: Alert orient x3 Results & Data Vital Signs (Past 12 Hours) Vital Signs Temp Pulse Resp BP Pulse Ox 12/08/24 14:00 61 13 12/08/24 13:00 68 17 91 12/08/24 13:00 99/70 L 12/08/24 12:00 61 23 94 12/08/24 12:00 103/66 12/08/24 11:00 61 20 94 12/08/24 11:00 107/70 12/08/24 11:00 107/70 12/08/24 10:03 66 26 H 92 12/08/24 10:00 108/66 12/08/24 09:36 65 16 95 12/08/24 09:30 65 16 93 12/08/24 09:12 68 16 94 12/08/24 09:03 72 14 96 12/08/24 09:00 106/71 12/08/24 09:00 106/71 12/08/24 09:00 106/71 12/08/24 08:54 70 19 94 12/08/24 08:00 71 18 94 12/08/24 08:00 95/57 L 12/08/24 08:00 98.2 F 12/08/24 08:00 65 PG Care Time/CCT Total # of Minutes Spent Total Time Spent with Patient: Total time spent is greater than 50% in coordination of care (as documented) at patient's floor/unit and/or counseling patient: Coding Level of Care Code 12071 SUB INP/OBS CARE 2/35MIN Diagnoses STEMI (ST elevation myocardial infarction) I21.3
[2024-12-08] MEDS: PRAVASTATIN SOD 10 MG TAB PO SCH (16:56)
[2024-12-09] MEDS: NITROGLYCERIN SL 0.4 MG/TAB TAB ONE (05:10)
[2024-12-09] MEDS: NITROGLYCERIN SL 0.4 MG/TAB TAB SL PRN (05:18)
[2024-12-09 05:28] LABS: Hematocrit (blood only) 47.1 % (42.0-52.0); Hemoglobin 16.1 g/dl (14.0-18.0); Immature Granulocytes # (auto) 0.03 K/uL (0.01-0.20); Immature Granulocytes % (auto) 0.3 %; Mean Corpuscular Hemoglobin 29.4 pg (25.0-34.0); Mean Corpuscular Volume 86.1 fL (80.0-100.0); Platelet Count 297 K/uL (130-400); RDW Standard Deviation 44.7 fL (36.4-46.3); Red Blood Count 5.47 M/uL (4.70-6.10); White Blood Count 11.91 K/ul (4.8-10.8)
[2024-12-09] MEDS: LACTATED RINGER'S 1,000 ML IV ONE ×2 (05:31→18:00)
[2024-12-09] MEDS: MoRPHine SULFATE 2 MG/ML CARP IV STA ×2 (05:38→05:52)
[2024-12-09 05:44] LABS: Anion Gap 7.0 (3-11); Blood Urea Nitrogen 12.0 mg/dl (6-23); Calcium 9.2 mg/dl (8.6-10.3); Carbon Dioxide 24.0 mmol/L (21-32); Chloride 103.0 mmol/L (98-107); Creatinine Clr Calc Pharmacy 109.4 ml/min; Glucose 115.0 mg/dl (70-99(Fasting)); Potassium 4.6 mmol/L (3.5-5.1); Sodium 134.0 mmol/L (136-145)
--- NOTE | 2024-12-09 05:48 | Electrocardiogram Report ---
Test Reason : Blood Pressure : */* mmHG Vent. Rate : 75 BPM Atrial Rate : 75 BPM P-R Int : 154 ms QRS Dur : 82 ms QT Int : 364 ms P-R-T Axes : 70 65 95 degrees QTcB Int : 406 ms Normal sinus rhythm with sinus arrhythmia ST elevation consider inferolateral injury or acute infarct ACUTE WA / STEMI Consider right ventricular involvement in acute inferior infarct Abnormal ECG When compared with ECG of 25-Sep-2024 10:57, ST elevation now present in Inferolateral leads Confirmed by Franky Posada ([id number]) on 12/09/2024 5:48:44 AM Referred By: REFERRED SELF Confirmed By: Franky Posada
--- NOTE | 2024-12-09 05:49 | Electrocardiogram Report ---
Test Reason : Blood Pressure : */* mmHG Vent. Rate : 78 BPM Atrial Rate : 78 BPM P-R Int : 162 ms QRS Dur : 86 ms QT Int : 364 ms P-R-T Axes : 73 54 90 degrees QTcB Int : 414 ms Normal sinus rhythm Low voltage QRS ST elevation consider inferior injury or acute infarct ACUTE NM / STEMI Consider right ventricular involvement in acute inferior infarct Abnormal ECG When compared with ECG of 07-Dec-2024 11:57, ST less elevated in Inferior leads Confirmed by Franky Posada ([id number]) on 12/09/2024 5:49:00 AM Referred By: REFERRED SELF Confirmed By: Franky Posada
--- NOTE | 2024-12-09 06:16 | Communication Note ---
Date of Service: December 09, 2024 Notified that patient had sudden onset recurrence of chest pain. Patient seen at bedside, describes it as similar to chest pain a couple days ago. Repeat EKG without overt ischemic changes - ST segment elevation essentially resolved in inferior leads compared to previous EKGs. Patient rates pain 8/10, progressively intensifying, sharp in nature. Trial of nitro x 2 doses with minimal change in sx. Pressures softened to 90s/60s, started 1 liter bolus LR. Stat trop came back at ~5000, down from 9000. Case discussed with on-call doc, Dr. Ardon - given that patient fairly stable, recommended stat TTE, pending. BP improved with fluids, gave 2mg morphine with reduction in pain level to 3/10. Now resting comfortably, VSS.
[2024-12-09] MEDS: ACETAMINOPHEN 1,000 MG/100 ML VIAL IV STA (06:21)
[2024-12-09] MEDS: ALBUMIN 25% 25 GM/100 ML VIAL IV ONE (06:31)
--- NOTE | 2024-12-09 06:37 | XRay Report ---
EXAM: XR chest 1V portable CLINICAL HISTORY: Chest pain. TECHNIQUE: An X-ray image of the chest is obtained in AP projection. COMPARISON: 09/25/2024 CR. FINDINGS: Pulmonary Parenchyma: Haziness of the right lower lung zone. An ill-defined opacity of the left lower lung zone. Both lungs show accentuated bronchovascular markings. No evidence of right pleural effusion or pleural thickening. Heart and Mediastinum: Cardiomegaly is noted. No mediastinal widening or masses. No hilar or mediastinal lymphadenopathy. Bony Thorax: Bony thorax appears intact without fractures or deformities. Soft Tissues: Soft tissues overlying the chest wall are unremarkable. IMPRESSION: 1. Right lower lung zone haziness and left lower lung zone ill-defined airspace opacity. Clinical and lab correlation is advised. 2. Cardiomegaly. 3. No interval changes since the last study. Electronically signed by Akil Hawthorne 12-09-2024 06:37 AM
--- NOTE | 2024-12-09 08:44 | Cardiology Progress Note ---
Date of Service December 09, 2024 Assessment & Plan (1) Chest pain: Plan: There is no acute changes in the EKG at this time compared to those seen immediately post DC. There were significant improvements in the EKG after stenting with regard to severity of ST elevations. However, the post DC EKG did have residual inferior ST elevations of about 1 mm and Q waves in the same leads. The ST depressions seen in the reciprocal leads on the initial EKG however had significantly improved. The 2 EKGs from today also have mild residual ST elevations of about 1 mm and Q waves inferiorly. The T waves in some of the inferior leads are inverted as would be anticipated with evolving EKG changes of DC. The ST depressions are not present anywhere arguing against recurrent acute stent thrombosis. Particularly since the patient is on aspirin and Brilinta and because he had very large ST elevations on presentation we would also expect recurrent significant ST elevations. In all likelihood this is a post DC pleuritic/inflammatory process possibly pericarditis/Rachael syndrome. I will need to review the echocardiogram which was performed this morning once it is available to determine if there is any significant changes. Will also follow the troponin. This morning's troponin was lower than the peak troponin obtained yesterday. If the trend continues downward will be more reassured. However, if it goes up and the patient worsens or the EKG becomes more acute appearing then I would take the patient to the cardiac catheterization suite at that time. As long as echo does not show any significant changes then I will begin treatment for presumed pericardial inflammation using Toradol in the short-term plus colchicine. It may be most prudent at this time to keep the patient as ICU status until we have completed this workup. He should remain on aspirin and Brilinta. We can consider restarting heparin as a drip following a bolus of 5000 units. Patient is not a candidate for Effient because of his history of TIA/CVA. It does not seem that he will be appropriate for discharge within the next 24 hours. We will reassess throughout the day. Admission and Anticipated Discharge Date Admission Date: December 07, 2024 Subjective I was called to see the patient regarding sudden onset chest pain. Briefly, patient developed sharp and severe chest pain this morning between 4 and 5 AM. He was provided sublingual nitroglycerin which did not alleviate his discomfort but did cause hypotension. He was then given IV fluids with improvement in his blood pressure. Reviewing his records, he had myocardial infarction in 2022 with stenting of the RCA at that time in [place]. He also has a history of TIA and continues to smoke. He presented to [facility] on 12/07/2024 with acute onset chest discomfort. EKG demonstrated evidence of acute inferior ST elevation DC. He was taken emergently to the cardiac catheterization suite by Dr. 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 He then had PCI with implantation of a large caliber long drug-eluting stent completely covering the prior stent. Religion of KRISTY-3 flow and essentially an unremarkable recovery until this morning. Echocardiogram was performed post DC showing RCA territory wall motion abnormalities but preserved EF. Today on my evaluation, patient's chest pain is improved but not completely resolved. He did receive pain medication in addition to the nitro. I reviewed post cath EKG as well as the 2 EKGs performed this morning. I have also reviewed the cath angiography. He had a troponin obtained this morning and there is a second troponin pending at around 11:00. Patient describes the sharp chest pain in the anterolateral chest, worse with palpation, sharp and heavy. Worse on deep inspiration. No associated dyspnea or nausea. He has no diaphoresis. Blood pressure has remained stable since he was provided IV fluids. He voices no other complaints or concerns at this time. An echocardiogram was performed but is not yet ready for my review. Review of Systems Review of Systems: Negative except as per HPI Physical Exam Constitutional: WD/WN, vitals as above (Mildly uncomfortable) Neck: No JVD Respiratory: Clear to auscultation bilaterally. No wheezing, rhonchi, or rales. Fair air movement. Cardiovascular: Regular rate and rhythm. S4 gallop. I do not appreciate rubs or murmurs at this time. No edema. Chest (Breasts): Additional Comments: Patient has exacerbated chest discomfort with palpation of the anterior chest. Musculoskeletal: no cyanosis or clubbing, extremities motor strength 5/5 Neurologic: Cognition is intact. Speech is fluent. No focal deficits. Psychiatric: A+Ox3, euthymic affect (Mildly anxious.) Results & Data Vital Signs (Past 12 Hours) Vital Signs Temp Pulse Resp BP Pulse Ox O2 Del Method O2 Flow Rate 12/09/24 07:31 81 12/09/24 07:31 36.6 C 12/09/24 07:12 79 24 94 Nasal Cannula 2 12/09/24 07:10 109/71 12/09/24 07:05 110/69 12/09/24 07:00 118/73 12/09/24 06:55 106/76 12/09/24 06:50 110/74 12/09/24 06:45 79 28 H 94 12/09/24 06:42 74 28 H 96 12/09/24 06:40 117/76 12/09/24 06:40 117/76 12/09/24 06:40 117/76 12/09/24 06:39 76 22 96 Nasal Cannula 4 12/09/24 06:35 116/73 12/09/24 06:35 116/73 12/09/24 06:33 74 23 93 12/09/24 06:30 115/74 12/09/24 06:25 116/73 12/09/24 06:20 121/78 12/09/24 06:15 114/73 12/09/24 06:15 76 24 96 12/09/24 06:10 120/78 12/09/24 06:10 120/78 12/09/24 06:10 120/78 12/09/24 06:09 76 29 H 95 12/09/24 06:05 122/74 12/09/24 06:05 122/74 12/09/24 06:05 122/74 12/09/24 06:03 75 25 H 96 12/09/24 06:00 76 30 H 95 12/09/24 06:00 111/70 12/09/24 06:00 111/70 12/09/24 05:57 71 25 H 96 12/09/24 05:55 104/71 12/09/24 05:55 104/71 12/09/24 05:50 106/68 12/09/24 05:50 106/68 12/09/24 05:45 113/67 12/09/24 05:41 102/67 12/09/24 05:22 97/60 L 12/09/24 05:18 88 20 90 Nasal Cannula 4 12/09/24 05:11 137/79 12/09/24 05:11 137/79 12/09/24 05:09 84 20 95 Nasal Cannula 4 12/09/24 05:02 136/82 09/13/25 04:51 123/80 12/09/24 04:51 123/80 12/09/24 04:51 123/80 12/09/24 04:42 91 H 20 95 4 12/09/24 04:39 75 25 H 12/09/24 04:00 36.8 C 65 24 124/74 95 Room Air 12/09/24 00:00 60 12/08/24 22:34 36.7 C 70 23 113/69 92 CPAP 12/08/24 20:31 67 PG Care Time/CCT Total # of Minutes Spent Total Time Spent with Patient: Total time spent is greater than 50% in coordination of care (as documented) at patient's floor/unit and/or counseling patient: Coding Level of Care Code 36216 SUB INP/OBS CARE 3/50MIN Diagnoses Chest pain R07.9 Chest pain type: unspecified (1) Chest pain Chest pain type: unspecified Qualified Code(s): R07.9 - Chest pain, unspecified
--- NOTE | 2024-12-09 10:22 | Hospitalist Progress Note ---
Date of Service December 09, 2024 Assessment & Plan (1) STEMI (ST elevation myocardial infarction): Plan: 58-year-old male with history of tobacco use who presents with a inferior STEMI and was found to have mid RCA thrombosis of an old stent, and is now s/p intrava scular lithotripsy and new overlapping AMY stent placement. 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 Troponins 3618 on admission, 9135 on repeat, 9190 on second repeat. S/p cardiac cath. 100% mid RCA stent thrombosis. PCI of mid RCA in-stent thrombosis with intravascular lithotripsy and new overlapping AMY x 1. Continue ticagrelor, aspirin. Amiodarone was discontinued, suspected had a episode of reperfusion arrhythmia Echo with LVEF 55 to 60%. Mild inferior inferior lateral wall hypokinesis. No valvular pathology. 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 Repeat EKG with improving but not resolved ST elevations and no acute depressions Cardiology seen at bedside due to recurrence of pain and persistent/unresolved pain. Repeat troponin series is pending, appears downtrended from peak however repeat is pending at 10 AM to evaluate delta after onset of pain. echo was performed at bedside, cardiology to review. Suspect may have post CO inflammatory pain; if suspicion is low for in-stent rethrombosis then will be treated with NSAID/colchicine. If clinically worsening or evidence of rethrombosis is apparent then will be taken back for catheterization. Appreciate recommendations/management. Subsequent troponin continuing to downtrend. 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 Started on colchicine 0.6 mg twice daily. Switched to high dose ASA --> 650mg q8h until sx improve then taper gradually after 1 week. Continue PPI for gastric PPx. - Repeat TTE with no change in EF or wall motion 12/09 JOHAN Continue CPAP Tobacco abuse Recommend tobacco cessation. Continue to active tobacco use PRODUCT ADVISOR Hypothyroidism Continue Synthroid DVT prophylaxis: SCDs, ambulate CODE STATUS: Full code Diet: Heart healthy Admission and Anticipated Discharge Date Admission Date: December 07, 2024 Anjelica Valentinet is seen at the bedside this morning. Reviewed overnight events with patient, and reviewed prior documentation. Overnight he did have sharp severe chest pain at around 5 AM. Prior to this he had remained pain-free. Received nitro which helped with pain, was hypotensive and was given IV fluids with subsequent improvement. Repeat EKG with residual ST changes, improved from prior and without acute ST depressions.. Troponin downtrending, although unclear if this is a continuous downtrend or if he may have had a delta with the event. Repeat troponin pending. He was seen at bedside by cardiology with incomplete resolution of his pain. He is still having sharp anterolateral chest pain worse on deep inspiration. Repeat echocardiogram is pending. No dyspnea. No diaphroesis. Edmundo at bedside reports that he continues to have 45/10 sharp anterior chest pain worse with deep breathing. He denies shortness of breath/sweating with this. He does think the nitro helped earlier in the night although feels his pain is starting to come back. On afternoon reassessment pain improving ~1-3, although not resolved. trop downtrending. D/w cardiology --> rec high dose aspirin for rachael and colchine Physical Exam Physical Exam: General: A&Ox3. NAD. Cooperative. HEENT: Atraumatic, normocephalic. Vision and hearing grossly intact Pulm: CTAB A&P. -wheezes, -rales, -rhonchi. Symmetrical chest rise. No increase in work of breathing. No respiratory distress. Cardiac: RRR, -mrg. Radial pulses intact and symmetrical. Endorses chest pain which is not reproducible on palpation Abdominal: Nontender, nondistended, soft. BS present. Extremities: No pitting edema. Right radial access site C/D/I with overlying piece of gauze. No hematoma is present. Results & Data Results & Data Vital Signs (Past 12 Hours) Vital Signs Temp Pulse Resp BP Pulse Ox O2 Del Method O2 Flow Rate 12/09/24 09:06 81 26 H 96 12/09/24 09:00 120/73 12/09/24 08:57 84 27 H 95 12/09/24 08:30 111/76 12/09/24 08:30 83 31 H 95 12/09/24 08:03 91 H 24 93 12/09/24 08:00 115/75 12/09/24 07:51 78 25 H 94 12/09/24 07:31 81 12/09/24 07:31 36.6 C 12/09/24 07:30 105/69 12/09/24 07:24 83 27 H 95 12/09/24 07:12 79 24 94 Nasal Cannula 2 12/09/24 07:10 109/71 12/09/24 07:05 110/69 12/09/24 07:00 118/73 12/09/24 06:55 106/76 12/09/24 06:50 110/74 12/09/24 06:45 79 28 H 94 12/09/24 06:42 74 28 H 96 12/09/24 06:40 117/76 12/09/24 06:40 117/76 12/09/24 06:40 117/76 12/09/24 06:39 76 22 96 Nasal Cannula 4 12/09/24 06:35 116/73 12/09/24 06:35 116/73 12/09/24 06:33 74 23 93 12/09/24 06:30 115/74 12/09/24 06:25 116/73 12/09/24 06:20 121/78 12/09/24 06:15 114/73 12/09/24 06:15 76 24 96 12/09/24 06:10 120/78 12/09/24 06:10 120/78 12/09/24 06:10 120/78 12/09/24 06:09 76 29 H 95 12/09/24 06:05 122/74 12/09/24 06:05 122/74 12/09/24 06:05 122/74 12/09/24 06:03 75 25 H 96 12/09/24 06:00 76 30 H 95 12/09/24 06:00 111/70 12/09/24 06:00 111/70 12/09/24 05:57 71 25 H 96 12/09/24 05:55 104/71 12/09/24 05:55 104/71 12/09/24 05:50 106/68 12/09/24 05:50 106/68 12/09/24 05:45 113/67 12/09/24 05:41 102/67 12/09/24 05:22 97/60 L 12/09/24 05:18 88 20 90 Nasal Cannula 4 12/09/24 05:11 137/79 12/09/24 05:11 137/79 12/09/24 05:09 84 20 95 Nasal Cannula 4 12/09/24 05:02 136/82 12/09/24 04:51 123/80 12/09/24 04:51 123/80 12/09/24 04:51 123/80 12/09/24 04:42 91 H 20 95 4 12/09/24 04:39 75 25 H 12/09/24 04:00 36.8 C 65 24 124/74 95 Room Air 12/09/24 00:00 60 12/08/24 22:34 36.7 C 70 23 113/69 92 CPAP PG Care Time/CCT Total # of Minutes Spent Total Time Spent with Patient: Total time spent is greater than 50% in coordination of care (as documented) at patient's floor/unit and/or counseling patient: Coding Level of Care Code 89760 SUB INP/OBS CARE 3/50MIN Diagnoses STEMI (ST elevation myocardial infarction) I21.3
[2024-12-09] MEDS: COLCHICINE 0.6 MG TAB PO SCH (11:12)
[2024-12-09] MEDS: ASPIRIN 325 MG ECTAB PO SCH (13:20)
--- NOTE | 2024-12-09 13:30 | XCELERA ---
[id number]
[2024-12-09] MEDS ORDERED: MoRPHine SULFATE 2 MG/ML CARP IV PRN (13:46)
[2024-12-09] MEDS: KETOROLAC TROMETHAMINE 15 MG/ML VIAL IV PRN (14:28)
[2024-12-09] MEDS: LOPERAMIDE HCL 2 MG CAP PO STA (22:40)
[2024-12-10 06:55] LABS: Hematocrit (blood only) 42.0 % (42.0-52.0); Hemoglobin 14.0 g/dl (14.0-18.0); Immature Granulocytes # (auto) 0.04 K/uL (0.01-0.20); Immature Granulocytes % (auto) 0.4 %; Mean Corpuscular Hemoglobin 28.4 pg (25.0-34.0); Mean Corpuscular Volume 85.2 fL (80.0-100.0); Platelet Count 284 K/uL (130-400); RDW Standard Deviation 43.8 fL (36.4-46.3); Red Blood Count 4.93 M/uL (4.70-6.10); White Blood Count 10.16 K/ul (4.8-10.8)
[2024-12-10 07:30] LABS: Anion Gap 7.0 (3-11); Blood Urea Nitrogen 14.0 mg/dl (6-23); Calcium 9.0 mg/dl (8.6-10.3); Carbon Dioxide 26.0 mmol/L (21-32); Chloride 104.0 mmol/L (98-107); Creatinine Clr Calc Pharmacy 114.5 ml/min; Glucose 106.0 mg/dl (70-99(Fasting)); Potassium 3.9 mmol/L (3.5-5.1); Sodium 137.0 mmol/L (136-145)
[2024-12-10 07:42] VITALS: BP 104/68; RESP 20; TEMP 98.2; O2SAT 93
--- NOTE | 2024-12-10 09:34 | Discharge Summary ---
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 twice daily, and high-dose aspirin. Aspirin taper as below: Week 1: Aspirin 650 mg every 8 hours Week 2: Aspirin 650 mg twice daily Week 3: Aspirin 325 mg twice daily Week 4: Aspirin 81 mg once daily, continue indefinitely Patient was cautioned with the risk of stomach ulcers and GI bleeding with high-dose aspirin. He has been prescribed Protonix 40 mg daily for gastric protection. Follow-up with cardiology, follow-up with PCP Recommend continued ongoing tobacco cessation efforts Patient has had a hypotensive response to metoprolol in the past. He did tolerate metoprolol 12.5 mg daily, but on second dose was with asymptomatic hypotension. He was instructed to continue metoprolol succinate 12.5 mg daily on discharge, and uptitrate to 25 mg daily if tolerated. Continue pravastatin. Pt intolerant of other statins. - Continue lisinopril 5mg daily Inferior STEMI, Rachael syndrome EKG with inferior STEMI. Troponins 3618 on admission, 9135 on repeat, 9190 on second repeat. S/p cardiac cath. 100% mid RCA stent thrombosis. PCI of mid RCA in-stent thrombosis with intravascular lithotripsy and new overlapping AMY x 1. Continue ticagrelor, aspirin. Amiodarone was discontinued, suspected had a episode of reperfusion arrhythmia Echo with LVEF 55 to 60%. Mild inferior inferior lateral wall hypokinesis. No valvular pathology. 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 Repeat EKG with improving but not resolved ST elevations and no acute depressions Cardiology seen at bedside due to recurrence of pain and persistent/unresolved pain. Repeat troponin series is pending, appears downtrended from peak however repeat is pending at 10 AM to evaluate delta after onset of pain. echo was performed at bedside, cardiology to review. Suspect may have post ID inflammatory pain; if suspicion is low for in-stent rethrombosis then will be treated with NSAID/colchicine. If clinically worsening or evidence of rethrombosis is apparent then will be taken back for catheterization. Appreciate recommendations/management. Subsequent troponin continuing to downtrend. 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 Started on colchicine 0.6 mg twice daily. Switched to high dose ASA --> 650mg q8h until sx improve then taper gradually after 1 week. Continue PPI for gastric PPx. Pain free following NSAID tx, pain free at discharge - Repeat TTE with no change in EF or wall motion 12/09 JOHAN Continue CPAP Tobacco abuse Recommend tobacco cessation. 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 Throughout the day his nausea and vomiting evolved into mid substernal chest pain going to the left shoulder/upper extremity region. He became diaphoretic while at work with this chest pain presented to the ER for further evaluation and treatment. Stat EKG demonstrated acute inferior wall ST elevation myocardial infarction. Heart alert was called overhead. Hospitalist group was contacted for admission. Hemodynamically the patient is currently stable. Blood pressure 145/86, pulse 91, respirations 18, afebrile, pulse ox 98% on room air. We did evaluate the patient at the bedside as discussed below. His laboratory studies are pending. He did discuss with interventional cardiology Dr. Smith at the bedside as well. Discharge Exam General: A&Ox3. NAD. Cooperative. HEENT: Atraumatic, normocephalic. Vision and hearing grossly intact. Pulm: CTAB A&P. -wheezes, -rales, -rhonchi. Symmetrical chest rise. No increased work of breathing. No respiratory distress. Cardiac: RRR, -mrg. Radial pulses intact and symmetrical. Abdominal: Nontender, nondistended, soft. BS present. Extremities: Warm, dry. Right wrist access site well-healing no hematoma. 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 You had post STEMI pain consistent with an inflammatory condition called Rachael syndrome for which you have been prescribed high-dose aspirin and colchicine as noted below. High-dose aspirin has a risk of causing stomach ulcers, you have been prescribed a medicine to help protect your stomach from ulcers called Protonix. Please take aspirin as noted below. Your aspirin dose will be gradually tapered according to the following schedule, this may be adjusted as needed by cardiac Week 1: Aspirin 650 mg every 8 hours Week 2: Aspirin 650 mg twice daily Week 3: Aspirin 325 mg twice daily Week 4: Aspirin 81 mg once daily, continue indefinitely Please take colchicine 0.6 mg by mouth twice daily You have been prescribed metoprolol succinate 12.5 mg daily. If your blood pressure is consistently greater than 110, it is recommended to trial an uptitration of this to 25 mg daily. If you have any lightheadedness dizziness or blood pressures below 100 systolic please hold this medicine and contact your talent management manager for recommendations. Please take lisinopril 5mg once by mouth daily. you should have a recheck of you r kidney and potassium levels drawn by your PCP or talent management manager in ~1 month to ensure stability. You have been intolerant of high-dose/high potency statins. You have been prescribed pravastatin 10 mg on shared decision making with your talent management manager. Please continue pravastatin 10 mg daily. Please continue to take ticagrelor 90 mg by mouth twice daily, this is a aspirin like medication taken with aspirin to help protect your cardiac stent. If you develop any new or worsening symptoms including fever, chills, sweats, chest pain, chest pressure, difficulty breathing, uncontrolled nausea/vomiting, rash, wheezing, passing out or nearly passing out, bleeding, black/bloody bowel movements, or other new or concerning symptoms please call your primary care physician, or call 911 for re-evaluation in the emergency department if you are very concerned. Pending Studies at Discharge: No Stand-Alone Forms: [facility] [employer], Smoking Cessation Medications and DC Order Prescriptions: New levothyroxine [Synthroid] 175 mcg Tablet 175 mcg PO DAILYBB Qty: 30 0RF Rx Instructions: Name Brand Only pravastatin 10 mg Tablet 10 mg PO DAILY@1700 Qty: 30 0RF aspirin [Ecotrin] 325 mg Tablet,Delayed Release (Dr/Ec) See Taper PO Q8H Qty: 180 0RF Taper: Taper, Blank 650 mg Q8H for 7 Days and 0 Hour 650 mg TWICE A DAY for 7 Days and 0 Hour 325 mg TWICE A DAY for 7 Days and 0 Hour 81 mg DAILY for 365 Days Rx Instructions: Week 1: Aspirin 650 mg every 8 hours Week 2: Aspirin 650 mg twice daily Week 3: Aspirin 325 mg twice daily Week 4: Aspirin 81 mg once daily, continue indefinitely lisinopril 5 mg Tablet 5 mg PO QAM Qty: 30 0RF colchicine [Colcrys] 0.6 mg Tablet 0.6 mg PO BID Qty: 60 0RF ticagrelor [Brilinta] 90 mg Tablet 90 mg PO BID Qty: 60 0RF metoprolol succinate 25 mg tablet extended release 24 hr 12.5 mg PO DAILY Qty: 30 0RF Continued levothyroxine 175 mcg capsule 175 mcg PO DAILY Qty: 30 2RF Patient Comments: 12/07-levothyroxine listed on allergies list with hives as reaction. Filled 12/03 30 day supply (DME) CPAP Machine [facility] [place] See Rx Instructions .Route Qty: 1 0RF Rx Instructions: Auto CPAP 5-20 cm water pressure with heated humidificaiton, tubing, and supplies and with nasal pillows. ARI: 99+ years. furosemide [Lasix] 20 mg tablet 20 mg PO DAILY PRN (Reason: Fluid Retention) Patient Comments: 12/07- last filled 08/01/24 90 day supply #90 atenolol 25 mg tablet 0 mg PO DAILY Patient Comments: 12/07- last filled 08/01/24 90 day supply #90 albuterol sulfate 90 mcg/actuation HFA aerosol inhaler 2 inh inhalation QID PRN (Reason: shortness of breath or wheezing) Qty: 8.5 0RF Discontinued aspirin 81 mg tablet,delayed release (DR/EC) 81 mg PO DAILY Patient Comments: 12/07- otc unable to verify Admission Data Admit Date/Time: 12/07/24 12:21 Attending Provider: Jac Rausch Admit Provider: Colton Galvan Primary Care Provider: Himanshu Parry Other Providers: Yan Smith Hospital Stay Data Consultations 12/07/24 12:21 Consult Cardiology Routine Procedures Performed Operation Date: 12/07/24 12:30 Actual Procedures p Cineradiography w/Routine Exam - Yan Smith MD p Cath, Left with Cors and Vent - Yan Smith MD p Drug Eluting Stent SGl Vessel - Yan Smith MD Diagnostic Imagining Performed 12/07/24 12:01 CL Cath Imgs for PACS use only Stat 12/07/24 14:09 CL IVUS Coronary Single Vessel Routine Discharge Instructions Given to Patient (Per Discharging Provider) You were seen in the hospital for a heart attack, STEMI. You had post STEMI pain consistent with an inflammatory condition called Rachael syndrome for which you have been prescribed high-dose aspirin and colchicine as noted below. High-dose aspirin has a risk of causing stomach ulcers, you have been prescribed a medicine to help protect your stomach from ulcers called Protonix. Please take aspirin as noted below. Your aspirin dose will be gradually tapered according to the following schedule, this may be adjusted as needed by cardiac Week 1: Aspirin 650 mg every 8 hours Week 2: Aspirin 650 mg twice daily Week 3: Aspirin 325 mg twice daily Week 4: Aspirin 81 mg once daily, continue indefinitely Please take colchicine 0.6 mg by mouth twice daily You have been prescribed metoprolol succinate 12.5 mg daily. If your blood pressure is consistently greater than 110, it is recommended to trial an uptitration of this to 25 mg daily. If you have any lightheadedness dizziness or blood pressures below 100 systolic please hold this medicine and contact your talent management manager for recommendations. Please take lisinopril 5mg once by mouth daily. you should have a recheck of your kidney and potassium levels drawn by your PCP or talent management manager in ~1 month to ensure stability. You have been intolerant of high-dose/high potency statins. You have been prescribed pravastatin 10 mg on shared decision making with your talent management manager. Please continue pravastatin 10 mg daily. Please continue to take ticagrelor 90 mg by mouth twice daily, this is a aspirin like medication taken with aspirin to help protect your cardiac stent. If you develop any new or worsening symptoms including fever, chills, sweats, chest pain, chest pressure, difficulty breathing, uncontrolled nausea/vomiting, rash, wheezing, passing out or nearly passing out, bleeding, black/bloody bowel movements, or other new or concerning symptoms please call your primary care physician, or call 911 for re-evaluation in the emergency department if you are very concerned. Total Time Total Time Spent Total Time Spent (In Minutes): Time spend day of discharge 45 minutes including direct patient care, documentation, review of labs and images, and coordination of care. Coding Level of Care Code 96345 INP/OBS DISCH >30 MIN Diagnoses STEMI (ST elevation myocardial infarction) I21.3
[2024-12-10 10:15] VITALS: PULSE 84
--- NOTE | 2024-12-11 13:13 | Electrocardiogram Report ---
Test Reason : Blood Pressure : */* mmHG Vent. Rate : 86 BPM Atrial Rate : 86 BPM P-R Int : 148 ms QRS Dur : 76 ms QT Int : 364 ms P-R-T Axes : 60 -22 -2 degrees QTcB Int : 435 ms Normal sinus rhythm Inferior infarct (cited on or before 09-Dec-2024) Abnormal ECG When compared with ECG of 09-Dec-2024 04:54, (unconfirmed) No significant change was found Confirmed by Daryl Horton ([id number]) on 12/11/2024 1:13:16 PM Referred By: REFERRED SELF Confirmed By: Daryl Horton
--- NOTE | 2024-12-11 13:13 | Electrocardiogram Report ---
Test Reason : Blood Pressure : */* mmHG Vent. Rate : 80 BPM Atrial Rate : 80 BPM P-R Int : 158 ms QRS Dur : 80 ms QT Int : 362 ms P-R-T Axes : 71 -17 -9 degrees QTcB Int : 417 ms Normal sinus rhythm Inferior infarct , possibly acute Abnormal ECG When compared with ECG of 07-Dec-2024 14:07, Serial changes of evolving Inferior infarct T wave inversion now evident in Inferior leads Confirmed by Daryl Horton ([id number]) on 12/11/2024 1:12:53 PM Referred By: REFERRED SELF Confirmed By: Daryl Horton
--- NOTE | 2024-12-11 15:29 | Electrocardiogram Report ---
Test Reason : Blood Pressure : */* mmHG Vent. Rate : 73 BPM Atrial Rate : 73 BPM P-R Int : 162 ms QRS Dur : 84 ms QT Int : 378 ms P-R-T Axes : 68 8 12 degrees QTcB Int : 416 ms Normal sinus rhythm Inferior infarct (cited on or before 09-Dec-2024) Abnormal ECG When compared with ECG of 09-Dec-2024 05:18, (unconfirmed) Serial changes of Inferior infarct Present Confirmed by Daryl Horton ([id number]) on 12/11/2024 3:29:03 PM Referred By: REFERRED SELF Confirmed By: Daryl Horton
== END 2024-12-10 10:55 | disposition home or self-care (01) | DRG 323 ==
LOC: ED 11:47 → CC 12:20 → 1E 12:21 → SUATTDRO 12:21 → CC 12:27 → 2S 12-09 21:20